=== PATIENT | female | born 1985 | race Caucasian/White ===

== ENCOUNTER 2023-07-30 09:45 | Outpatient (OUT) | payer OTHER, SELFPAY ==
[2023-07-30 10:59] LABS: Alanine Aminotransferase 26 U/L (14-59); Albumin Globulin Ratio 1.5; Albumin Level 4.1 g/dL (3.4-5.0); Alkaline Phosphatase 67 U/L (46-116); Anion Gap 12.5; Aspartate Amino Transferase 14 U/L (15-37); BUN Creatinine Ratio 12.1; Bilirubin Total 0.9 mg/dL (0.2-1.0); Calcium 9.1 mg/dL (8.5-10.1); Carbon Dioxide 27.8 mmol/L (21.0-32.0); Chloride 103 mmol/L (98-107); Chol HDL Ratio 2.5; Cholesterol 171 mg/dL (<=200); Estimated GFR (African America >60 (>=60); Estimated GFR (Non-African Ame >60 (>=60); Globulin 2.8 g/dL; Glucose 86 mg/dL (74-106); HDL Cholesterol 68 mg/dL (40-60); Potassium 4.3 mmol/L (3.5-5.1); Sodium 139 mmol/L (136-145); Total Protein 6.9 g/dL (6.4-8.2); Triglycerides 39 mg/dL (<=150); VLDL CHOLESTEROL 7.8 mg/dL
== END 2023-07-30 09:46 | disposition home or self-care (01) ==
PROVIDERS: PCP Family Medicine
DX: Z00.00 Encounter for general adult medical examination without abnormal findings (principal); Z13.220 Encounter for screening for lipoid disorders; Z13.6 Encounter for screening for cardiovascular disorders
CPT/HCPCS: 36415; 80053; 80061

== ENCOUNTER 2023-09-05 08:01 | Outpatient (OUT) | payer OTHER, SELFPAY | END 2023-09-05 08:02 | disposition home or self-care (01) | LOC: PST 08:01 | PROVIDERS: PCP Family Medicine; Visit Provider Obstetrics & Gynecology | DX: Z01.818 Encounter for other preprocedural examination (principal); Z30.2 Encounter for sterilization ==

== ENCOUNTER 2023-09-16 07:49 | Day surgery (SDC) | payer OTHER, SELFPAY ==
[2023-09-05 08:28] VITALS: BP 101/68; PULSE 71; RESP 14; TEMP 36.2; O2SAT 99; BMI 22.8
[2023-09-16] VITALS (12 sets, daily range): BP systolic 95–119; BP diastolic 51–91; PULSE 62–90; RESP 11–21; TEMP 36.3–36.6; O2SAT 93–100
[2023-09-16 08:02] LABS: Basophils Percent Auto 0.4 % (0.2-2.0); Eosinophils Absolute Auto 0.1 10^3/uL (0.0-0.7); Eosinophils Percent Auto 1.3 % (0.9-7.0); Hematocrit 40.2 % (36.0-48.0); Hemoglobin 13.4 g/dL (12.0-16.0); Immature Granulocytes Abs Auto 0.01 10^3/uL (0.00-0.03); Immature Granulocytes Pct Auto 0.2 % (0.0-0.5); Lymphocytes Absolute Auto 1.8 10^3/uL (1.2-3.8); Lymphocytes Percent Auto 36.5 % (20.5-60.0); Mean Corpuscular HGB Conc 33.3 g/dL (29.9-35.2); Mean Corpuscular Hemoglobin 30.7 pg (26.7-34.0); Mean Corpuscular Volume 92.2 fL (81.0-99.0); Mean Platelet Volume 9.7 fL (9.5-13.5); Monocytes Absolute Auto 0.4 10^3/uL (0.3-0.8); Monocytes Percent Auto 7.3 % (1.7-12.0); Neutrophils Absolute Auto 2.6 10^3/uL (1.4-6.5); Neutrophils Percent Auto 54.3 % (43.0-75.0); Platelet Count 171 10^3/uL (150-450); Red Blood Count 4.36 10^6/uL (4.20-5.40); Red Cell Distribution Width 11.1 % (11.0-15.0); White Blood Count 4.8 10^3/uL (4.0-11.0)
[2023-09-16 08:20] LABS: HCG Quantitative <1 mIU/mL
[2023-09-16] MEDS: LACTATED RINGER'S SOLUTION 1,000 ML 50 ML IV ×2 (08:20→10:38)
--- NOTE | 2023-09-16 10:15 | P.ON_ITS ---
Brief Operative Note Date of procedure: 09/16/23 Pre-op diagnosis: desires sterilization, multiparity Post-op diagnosis: same as pre-op Procedure: Brief Operative Note Date of procedure: Pre-op diagnosis: Post-op diagnosis: Procedure: NAME OF PROCEDURE: robotic assisted bilateral laparoscopic salpingectomy with lysis of adhesions PROCEDURE: The patient was taken back to the Operating Room where she was given general anesthesia without difficulty. She was then prepped and draped in the normal sterile fashion after being placed in a dorsal lithotomy position. A wet sponge stick was placed into the patient's vagina. Attention was then turned to the patient's abdomen, where a scalpel was used to make a small infraumbilical incision. The S retractors were then used to dissect the underlying layers until the fascia could be seen. The fascia was then grasped with Rell clamps and tented up. A knife was then used to make a small incision to the fascia. The muscle was identified, at that time two sutures of #0 Vicryl on a GI needle was then used and placed through the fascia. the peritoneum was then identified and entered bluntly. The 10-4 Hselly was then placed into the patient's abdomen. Th is was confirmed with direct visualization of the bowel, using the laparoscope. The patient's abdomen was then insufflated using approximately 4 liters of CO2 gas. Survey of the patient's abdomen demonstrated ovaries were normal in appearance as well as both tubes and uterus. A second and third rt and lt lateral robotic ports which were 8 mm in size, was then placed after the skin incision was made under direct visualization . the robotic arms were engaged. The patient's tube on the patient's right side was identified and tented up using a grasper, the ligasure apparatus was then used to come across the mesosalpingx from the fimbriated end to the insertion site at the uterus, the tube was then amputated and removed in its entirety. This was done on the contralateral side. The tubes were the removed from the patients abdomen. Excellent hemostasis was noted. The lateral ports were then moved under direct visualization with excellent hemostasis. All instruments were removed from the p atient's abdomen. The fascia was closed using the #0 Vicryl on GI needle. The skin was closed using 4-0 Vicryl subcuticularly. All instruments were removed from the patient's vagina as well. The patient was taken out of the dorsal lithotomy position and placed in the supine position and taken to recovery in stable condition. Sponge, lap and needle counts were correct x2. please note lysis of bowel adhesions from the pelvic side wall was performed using the ligasure Anesthesia: JOON Surgeon: Darryl Dia Food Service Substitute: Renetta Kumar Estimated blood loss (mL): 5 Pathology: other (bilateral tubes) Condition: stable Disposition: PACU
[2023-09-16] MEDS: HYDROMORPHONE HCL 0.5 MG/0.5 ML SYRINGE IV (10:46)
[2023-09-16] MEDS: HYDROCODONE/ACET 5-325 MG TABLET 1 TAB PO (10:59)
--- NOTE | 2023-09-16 11:03 | PC.NURSE ---
PATIENT WANTED PAIN PILL AT THIS TIME. MEDICATION GIVEN ORDERED
--- NOTE | 2023-09-16 11:11 | PC.NURSE ---
PATIENT STATES HER PAIN IS BETTER AND IS TOLERABLE
--- NOTE | 2023-09-16 12:28 | PC.NURSE ---
Up to bathroom and voids cleear yellow without difficulty; no drainage on peripad
== END 2023-09-16 12:15 | disposition home or self-care (01) ==
PROVIDERS: PCP Family Medicine; Visit Provider Obstetrics & Gynecology
PROC: (CPT 840; principal; 2023-09-16 08:55)
DX: Z30.2 Encounter for sterilization (principal); Z86.16 Personal history of COVID-19
CPT/HCPCS: 58661; 36415; 84702; 85025; 88302; J1170; J2704

== ENCOUNTER 2023-10-07 08:18 | Outpatient (OUT) | payer OTHER, SELFPAY ==
--- OUTSIDE RECORDS SUMMARY | 2023-10-07 08:20 | XMS_ITS | CCD ---
Author Name Unknown Address [address] [place] [address] [address] [place] [address] Organization [facility] Care Team Providers Care Bank Representative Name Role Phone ORESTES, DR ZACH Woodward Admitting Unavailable WONDERLY, DR ZACH Woodward Attending Unavailable EFFIE TRIMBLE Consulting Unavailable EFFIE TRIMBLE Attending Unavailable WONDERDIANNE, DR ZACH Woodward Primary Care Unavailable EFFIE TRIMBLE Admitting Unavailable NHAN MEIER Attending Unavailable RIK MOTA Attending Unavailable Problems Problem Classification Problem Date Documented Da te Episodic/Chronic Other endocrine disorders (4 sources) Polycystic ovarian syndrome; Translations: [POLYCYSTIC OVARIAN SYNDROME] Onset: 11-22-2020 Chronic Results Test Name Value Interpretation Reference Range Facil ity SURGICAL PATH REPORTon 09-21 SURGICAL PATH REPORT [facility] Department of Pathology [address] [place] [id number] Name: EDY BLEDSOE : 1985 [employer] [id number] Number: Gender [facility] : n: Admit 38 years Attending NHAN MEIER Age: Provider: Ordering NHAN MEIER Provider: Consulti Surgical Pathology Report ng: ACCESSION: COLLECTED DATE/TIME: RECEIVED DATE/TIME: PATHOLOGIST: [id number] 09/16/2023 10:20 EST 09/19/2023 13:49 SEFERINO BRAXTON MD, ZACKARY GOSS Final Diagnosis Report for [facility] [place] BILATERAL FALLOPIAN TUBES, BILATERAL SALPINGECTOMY: - COMPLETE CROSS SECTION OF FALLOPIAN TUBES WITHOUT SIGNIFICANT HISTOPATHOLOGIC CHANGE. ZACKARY BRAXTON PATHOLOGIST (Electronic Signature) Date Verified 09/21/2023 [facility] Clinical Data PRE-OP DIAGNOSIS: Not specified POST-OP DIAGNOSIS: Request for sterilization, adhesions, path pending PROCEDURES: DaVinci assisted robotic bilateral tubal salpingectomy, lysis of adhesions SPECIMEN: Bilateral fallopian tubes / Outpatient Gross Description Labeled bilateral fallopian tubes. Received in formalin are bilateral fallopian tubes. These consist of cylindrical segments which are pink purple to red. Each include one end which is fimbriated. The first fallopian tube measures 8.5 cm in length and has a cross diameter ranging from 0.4 to 0.6 cm proximal to distal. The remaining fallopian tube measures 7.2 cm in length and has a cross diameter ranging from 0.4 to 0.6 cm proximal to distal. The segments are serially sectioned in a transverse manner. Infirmary Attendant sections are submitted under the following designations: #1 - first described fallopian tube #2 - second described fallopian tube MP/slteodora ____ Print 09/21/2023 08:50 EST Number: Date/Time: [facility] Department of Pathology [address] [place], [place] [id number] Name: EDY BLEDSOE : 1985 [facility] [id number] Number: Gender Female [facility] : n: Admit 38 years Attending NHAN MEIER Age: Provider: Ordering NHAN MEIER Provider: Consulti Surgical Pathology Report ng: ACCESSION: COLLECTED DATE/TIME: RECEIVED DATE/TIME: PATHOLOGIST: [id number] 09/16/2023 10:20 EST 09/19/2023 13:49 EST FOX ALLEN, ZACKARY GOSS Gross Description 09/19/2023 Microscopic Diagnosis The final diagnosis is based on a microscopic exam of escrow representative sections. Codes CPT CODE: 41133 ____ Print 09/21/2023 08:50 EST Number: Date/Time: Normal [facility] Comment on above: Performed By: #### [id number] #### [facility] [address] [id number] Deputy Court Clerk: Branden Zhao MD TESTOSTERONE, FREE,DIRECT, T OTALon 11-26-2020 Free Testosterone(Direct ) 0.6 pg/mL Normal 0.0-4.2 [facility] Comment on above: Result Comment: Perf ormed at: BN Performed By: #### T ESTFRD #### [facility] [address] [place] [address] Awa Elva Testosterone [Mass/Vol] 14 ng/dL Normal 8-48 [facility] Comment on above: Result Comment: Perf ormed at: CB Performed By: #### T ESTFRD #### [facility] [address] [place], [place] [id number] Awa Elva ZINC SERUM OR PLASMAon 11-26 Zinc, Plasma or Serum 106 ug/dL Normal 44-115 [facility] Comment on above: Result Comment: Dete ction Limit = 5 . Please note reference interval change Performed By: #### L BCLH #### [facility] [address] [place], [place] [address] Awa Elva VIT D 1 25 DIHYDROXYon 11-25 Calcitriol(1,25 di-OH Vit D) 47.3 pg/mL Normal 19.9-79.3 [facility] Comment on above: Performed By: #### V [id number] #### [facility] [address] [place], [place] [address] Awa Stevenson DHEA-SULFATEon 11-23-2020 DHEA-Sulfate 69.0 ug/dL Normal 57.3-279.2 [facility] Comment on above: Performed By: #### L TIM #### [facility] [address] [place], [place] [address] Awa Stevenson FSHon 11-23-2020 FSH 7.5 mIU/mL Normal [facility] Comment on above: Result Comment: Adul t Female: Follicular phase 3.5 - 12.5 Ovulation phase 4.7 - 21.5 Luteal phase 1.7 - 7.7 Postmenopausal 25.8 - 134.8 Performed By: #### L TIM #### [facility] [address] [place], [place] [address] Awa Stevenson LUTEINIZING HORMONE (LH)on 0 11-23-2020 LH 9.8 mIU/mL Normal [facility] Comment on above: Result Comment: Adul t Female: Follicular phase 2.4 - 12.6 Ovulation phase 14.0 - 95.6 Luteal phase 1.0 - 11.4 Postmenopausal 7.7 - 58.5 Performed By: #### L TIM #### [facility] [address] [place] [address] Awa Stevenson PROLACTINon 11-23-2020 Prolactin 9.7 ng/mL Normal 4.8-23.3 [facility] Comment on above: Performed By: #### P ROLANNITA #### [facility] [address] [place], [place] [address] Awa Stevenson CBC AUTO DIFFon 11-22-2020 BASO # 0.0 103/ul Normal 0.0-0.1 [facility] Comment on above: Performed By: #### C BC #### [facility] [address] [place], [place] [address] Awa Stevenson Basophils/100 WBC (Bld) 0.2 % Normal 0.2-2.0 [facility] Comment on above: Performed By: #### C BC #### [facility] [address] [place], [place] [address] Awaroselyn Stevenson EO # 0.0 103/ul Normal 0.0-0.7 [facility] Comment on above: Performed By: #### C BC #### [facility] [address] [place], [place] [address] Awa Elva Eosinophils/100 WBC (Bld) 1.0 % Normal 0.9-7.0 [facility] Comment on above: Performed By: #### C BC #### [facility] [address] [place] [address] Awa Elva Erythrocyte distribution width (RBC) [Ratio] 11.2 % Normal 11.0-15.0 [facility] Comment on above: Performed By: #### C BC #### [facility] [address] [place] [address] Awa Elva Hematocrit (Bld) [Volume fraction] 42.3 % Normal 36.0-48.0 [facility] Comment on above: Performed By: #### C BC #### [facility] [address] [place], [place] [address] Awa Elva Hemoglobin (Bld) [Mass/Vol] 14.4 g/dL Normal 12.0-16.0 [facility] Comment on above: Performed By: #### C BC #### [facility] [address] [place] [address] Awa Elva IG # 0.01 10e3/ul Normal 0.00-0.03 [facility] Comment on above: Performed By: #### C BC #### [facility] [address] [place] [address] Awa Elva IG % 0.2 % Normal 0.0-0.5 [facility] Comment on above: Performed By: #### C BC #### [facility] [address] [place] [address] Awa Elva LYMPH # 1.6 103/ul Normal 1.2-3.8 [facility] Comment on above: Performed By: #### C BC #### [facility] [address] [place] [address] Awa Elva Lymphocytes/100 WBC (Bld) 39.3 % Normal 20.5-60.0 [facility] Comment on above: Performed By: #### C BC #### [facility] [address] [place], [place] [address] Awa Elva MANUAL DIFF REQ NO Normal [facility] Comment on above: Performed By: #### C BC #### [facility] [address] [place], [place] [address] Awaroselyn Stevenson MCH (RBC) [Entitic mass] 30.6 pg Normal 26.7-34.0 [facility] Comment on above: Performed By: #### C BC #### [facility] [address] [place], [place] [address] Awaroselyn Stevenson MCHC (RBC) [Mass/Vol] 34.0 g/dL Normal 29.9-35.2 [facility] Comment on above: Performed By: #### C BC #### [facility] [address] [place] [address] Awa Elva MCV (RBC) [Entitic vol] 90.0 fL Normal 81.0-99.0 [facility] Comment on above: Performed By: #### C BC #### [facility] [address] [place] [address] Awa Leva MONO # 0.3 103/ul Normal 0.3-0.8 [facility] Comment on above: Performed By: #### C BC #### [facility] [address] [place], [place] [address] Awa Elva Monocytes/100 WBC (Bld) 6.7 % Normal 1.7-12.0 [facility] Comment on above: Performed By: #### C BC #### [facility] [address] [place] [address] Awa Elva NEUT # 2.1 103/ul Normal 1.4-6.5 [facility] Comment on above: Performed By: #### C BC #### [facility] [address] [place], [place] [address] Awa Elva Neutrophils/100 WBC (Bld) 52.6 % Normal 43.0-75.0 [facility] Comment on above: Performed By: #### C BC #### [facility] [address] [place], [place] [address] Awa Elva Platelet mean volume (Bld) [Entitic vol] 9.3 fL Critically low 9.5-13.5 [facility] Comment on above: Performed By: #### C BC #### [facility] [address] [place] [address] Awa Stevenson PLT 207 103/ul Normal 150-450 [facility] Comment on above: Performed By: #### C BC #### [facility] [address] [place] [address] Awa Stevenson RBC 4.70 106/ul Normal 4.20-5.40 [facility] Comment on above: Performed By: #### C BC #### [facility] [address] [place] [address] Awa Stevenson WBC 4.0 103/ul Normal 4.0-11.0 [facility] Comment on above: Performed By: #### C BC #### [facility] [address] [place] [address] Awa Stevenson FREE T3on 11-22-2020 FREE T3 2.77 pg/mlL Normal 2.77-5.27 [facility] Comment on above: Performed By: #### F T3, TSH #### [facility] [address] [place] [address] Awa Stevenson FREE T4on 11-22-2020 Free T4 [Mass/Vol] 1.13 ng/dL Normal 0.78-2.19 [facility] Comment on above: Performed By: #### V ITB12, IRON, FT4 #### [facility] [address] [place], [place] [address] Awaroselyn Fonsecaen IRONon 11-22-2020 Iron [Mass/Vol] 101.0 ug/dL Normal 37.0-170.0 [facility] Comment on above: Performed By: #### V ITB12, IRON, FT4 #### [facility] [address] [place], [place] [address] Awaroselyn Fonsecaen TSHon 11-22-2020 TSH 1.202 uIU/mL Normal 0.470-4.[address] [facility] Comment on above: Performed By: #### F T3, TSH #### [facility] [address] [place], [place] [address] Awa Stevenson TSH RANGE SEE BELOW Normal [facility] Comment on above: Result Comment: <0.3 4 UIU/ml HYPERTHYROID 0.34-5.60 UIU/ml EUTHYROID >5.60 UIU/ml HYPOTHYROID Performed By: #### F T3, TSH #### [facility] [address] [place], [place] [address] Awa Stevenson VITAMIN B12on 11-22-2020 Cobalamin (Vitamin B12) [Mass/Vol] 324.0 pg/mL Normal 239.0-931.0 [facility] Comment on above: Performed By: #### V ITB12, IRON, FT4 #### [facility] [address] [place], [place] [address] Awa Stevenson Encounters Encounter Date Encounter Type Care Provider Facility Start: 10-03-2023 End: 10-03-2023 ambulatory RIK MOTA Not Available Start: 09-16-2023 End: 09-17-2023 ambulatory NHAN MEIER Facility:[facility] Start: 01-14-[address] ZACH Anderson lity:H1 Start: 11-22-2020 End: 11-23-2020 ambulatory EFFIE TRIMBLE Facility: Payers Date Payer Category Payer Unknown [id number] 2.16.84 [id number] 1985 Unknown [id number] 2.16.84 [id number] 1985 Unknown [id number] 2.16.8 [id number] 1985 Unknown [id number] 1959 Self-pay 1959 Unknown [id number] Summary Purpose Family History No Family History Records FoundNo Family History Records FoundNo Family History Records Found Advance Directives No Advanced Directives Records FoundNo Advanced Directives Records FoundNo Advanced Directives Records Found Additional Source Comments INFORMATION SOURCE (unrecogn ized section and content) DATE CREATED AUTHOR 02/11/2021 [facility] DATE CREATED AUTHOR AUTHOR'S ORGANIZ ATION 09/23/[address] [facility] DATE CREATED AUTHOR AUTHOR'S ORGANIZ ATION 10/03/2023 [facility] FOR RECORDS PERTAINING TO PATIENTS WHO ARE OR HAVE BEEN ENROLLED IN A CHEMICAL DEPENDENCY/SUBSTANCEABUSE PROGRAM, SOME INFORMATION MAY BE OMITTED. This clinical summary was aggregated from multiple sources. Caution should be exercised in using it in the provision of clinical care. This summary normalizes information from multiple sources, and as a consequence, information in this document may materially change the coding, format and clinical context of patient data. In addition, data may be omitted in some cases. CLINICAL DECISIONS SHOULD BE BASED ON THE PRIMARY CLINICAL RECORDS. [facility] [employer] provides no warranty or guarantee of the accuracy or completeness of information in this document.
[2023-10-07 08:44] LABS: Basophils Percent Auto 0.4 % (0.2-2.0); Eosinophils Absolute Auto 0.2 10^3/uL (0.0-0.7); Eosinophils Percent Auto 3.1 % (0.9-7.0); Hematocrit 41.4 % (36.0-48.0); Hemoglobin 13.9 g/dL (12.0-16.0); Immature Granulocytes Abs Auto 0.01 10^3/uL (0.00-0.03); Immature Granulocytes Pct Auto 0.2 % (0.0-0.5); Lymphocytes Absolute Auto 1.9 10^3/uL (1.2-3.8); Lymphocytes Percent Auto 37.3 % (20.5-60.0); Mean Corpuscular HGB Conc 33.6 g/dL (29.9-35.2); Mean Corpuscular Hemoglobin 30.7 pg (26.7-34.0); Mean Corpuscular Volume 91.4 fL (81.0-99.0); Monocytes Absolute Auto 0.4 10^3/uL (0.3-0.8); Monocytes Percent Auto 7.1 % (1.7-12.0); Neutrophils Absolute Auto 2.7 10^3/uL (1.4-6.5); Neutrophils Percent Auto 51.9 % (43.0-75.0); Platelet Count 183 10^3/uL (150-450); Red Blood Count 4.53 10^6/uL (4.20-5.40); Red Cell Distribution Width 11.1 % (11.0-15.0); White Blood Count 5.1 10^3/uL (4.0-11.0)
[2023-10-07 09:11] LABS: Free T3 2.68 pg/mL (2.18-3.98); Thyroid Stimulating Hormone 1.892 uIU/mL (0.358-3.740)
[2023-10-07 09:40] LABS: Free T4 1.08 ng/dL (0.76-1.46)
[2023-10-08 08:10] LABS: Estradiol 93.2 pg/mL (.); Progesterone 1.3 ng/mL (.)
[2023-10-20 14:08] LABS: Free Testosterone(Direct) 0.5 pg/mL (0.0-4.2); Testosterone 19 ng/dL (8-60)
== END 2023-10-07 08:19 | disposition home or self-care (01) ==
LOC: LAB 08:18
PROVIDERS: PCP Family Medicine
DX: N95.9 Unspecified menopausal and perimenopausal disorder (principal)
CPT/HCPCS: 36415; 82670; 84144; 84402; 84403; 84439; 84443; 84481; 85025

== ENCOUNTER 2024-03-10 08:27 | Outpatient (OUT) | payer OTHER, SELFPAY ==
--- OUTSIDE RECORDS SUMMARY | 2024-03-10 08:33 | XMS_ITS ---
Patient Summarization (C-CDA 2.1 CCD) Created on: March 10, 2024 Ab RHODES~RAKAN : 1985 Sex: Female Author Organization Sample organization Care Team Providers Care Forming Department Supervisor Name Role Phone ORESTES, DR ZACH Woodward Admitting Unavailable ORESTES, DR ZACH Woodward Attending Unavailable EFFIE TRIMBLE Consulting Unavailable EFFIE TRIMBLE Attending Unavailable ORESTES, DR ZACH Woodward Primary Care Unavailable EFFIE TRIMBLE Admitting Unavailable NHAN MEIER Attending Unavailable RAKAN, ANIVAL Wheeler Attending Unavailable RIK MOTA Attending Unavailable Encounters Encounter Date Encounter Type Care Provider Facility Start: 11-03-2023 End: 11-03-2023 ambulatory ANIVAL BLEDSOE Not Available Start: 10-03-2023 End: 10-03-2023 ambulatory RIK MOTA Not Available Start: 09-16-2023 End: 09-17-2023 ambulatory NHAN MEIER Facility:[facility] Start: 01-14-[address] ZACH CARLISLE Faci lity:[facility] Start: 11-22-2020 End: 11-23-2020 ambulatory EFFIE TRIMBLE Facility:[facility] Payers Date Payer Category Payer Unknown [id number] .[id number] 1985 Unknown [id number] 1985 Unknown [id number] 1985 Unknown [id number] .[id number] 1985 Unknown [id number] 1959 Self-pay 1959 Unknown [id number] Problems Problem Classification Problem Date Documented Da te Episodic/Chronic Other endocrine disorders (4 sources) Polycystic ovarian syndrome; Translations: [POLYCYSTIC OVARIAN SYNDROME] Onset: 11-22-2020 Chronic Results Test Name Value Interpretation Reference Range Facil ity SURGICAL PATH REPORTon 09-21 SURGICAL PATH REPORT [facility] Department of Pathology [address] [place] [address] Name: EDY BLEDSOE : 1985 [facility] [id number] Number: Gender Female [facility] : n: Admit 38 years Attending NHAN MEIER Age: Provider: Ordering NHAN MEIER Provider: Consulti Surgical Pathology Report ng: ACCESSION: COLLECTED DATE/TIME: RECEIVED DATE/TIME: PATHOLOGIST: [id number] 09/16/2023 10:20 EST 09/19/2023 13:49 EST FOX ALLEN, ZACKARY GOSS Final Diagnosis Report for [facility] [place] BILATERAL FALLOPIAN TUBES, BILATERAL SALPINGECTOMY: - [...] are serially sectioned in a transverse manner. District Supervisor sections are submitted under the following designations: #1 - first described fallopian tube #2 - second described fallopian tube MP/slb ____ Print 09/21/2023 08:50 EST Number: Date/Time: [facility] Department of Pathology [address] [place] [id number] Name: EDY BLEDSOE : 1985 [facility] [id number] Number: Gender Female Roland MARLOW ESTEFANIA : n: Admit 38 years Attending NHAN MEIER Age: Provider: Ordering NHAN MEIER Provider: Consulti Surgical Pathology Report ng: ACCESSION: COLLECTED DATE/TIME: RECEIVED DATE/TIME: PATHOLOGIST: [id number] 09/16/2023 10:20 EST 09/19/2023 13:49 EST FOX ALLEN, ZACKARY GOSS Gross Description 09/19/2023 Microscopic Diagnosis The final diagnosis is based on a microscopic exam of healthcare representative sections. Codes CPT CODE: 95990 ____ Print 09/21/2023 08:50 EST Number: Date/Time: Normal [facility] Comment on above: Performed By: #### [id number] #### [facility] [address] [place] [id number] Certified Medical Asst: Branden Zhao MD TESTOSTERONE, FREE,DIRECT, T Dimas 11-26-2020 Free Testosterone(Direct ) 0.6 pg/mL Normal 0.0-4.2 [facility] Comment on above: Result Comment: Perf ormed at: BN Performed By: #### T ESTSTANISLAV #### [facility] [address] [place], [place] [id number] Awa Stevenson Testosterone [Mass/Vol] 14 ng/dL Normal 8-48 [facility] Comment on above: Result Comment: Perf ormed at: CB Performed By: #### T ESTSTANISLAV #### [facility] [address] [place], [place] [id number] Awa Stevenson ZINC SERUM OR PLASMAon 11-26 Zinc, Plasma or Serum 106 ug/dL Normal 44-115 [facility] Comment on above: Result Comment: Dete ction Limit = 5 . Please note reference interval change Performed By: #### L SOLANGE #### [facility] [address] [place] [address] Awa Stevenson VIT D 1 25 DIHYDROXYon 11-25 Calcitriol(1,25 di-OH Vit D) 47.3 pg/mL Normal 19.9-79.3 [facility] Comment on above: Performed By: #### V [id number] #### [facility] [address] [place], [place] [id number] Awa Stevenson DHEA-SULFATEon 11-23-2020 DHEA-Sulfate 69.0 ug/dL Normal 57.3-279.2 [facility] Comment on above: Performed By: #### L SOLANGE #### [facility] [address] [place], [place] [id number] Awa Stevenson FSHon 11-23-2020 FSH 7.5 mIU/mL Normal [facility] Comment on above: Result Comment: Adul t Female: Follicular phase 3.5 - 12.5 Ovulation phase 4.7 - 21.5 Luteal phase 1.7 - 7.7 Postmenopausal 25.8 - 134.8 Performed By: #### L SOLANGE #### [facility] [address] [place], [place] [id number] Awa Stevenson LUTEINIZING HORMONE (LH)on 0 11-23-2020 LH 9.8 mIU/mL Normal [facility] Comment on above: Result Comment: Adul t Female: Follicular phase 2.4 - 12.6 Ovulation phase 14.0 - 95.6 Luteal phase 1.0 - 11.4 Postmenopausal 7.7 - 58.5 Performed By: #### L BCLH #### [facility] [address] [place] [address] Awa Elva PROLACTINon 11-23-2020 Prolactin 9.7 ng/mL Normal 4.8-23.3 [facility] Comment on above: Performed By: #### P ROLAC #### [facility] [address] [place] [address] Awa Elva CBC AUTO DIFFon 11-22-2020 BASO # 0.0 103/ul Normal 0.0-0.1 [facility] Comment on above: Performed By: #### C BC #### [facility] [address] [place] [address] Awa Elva Basophils/100 WBC (Bld) 0.2 % Normal 0.2-2.0 [facility] Comment on above: Performed By: #### C BC #### [facility] [address] [place] [address] Awa Elva EO # 0.0 103/ul Normal 0.0-0.7 [facility] Comment on above: Performed By: #### C BC #### [facility] [address] [place], [place] [id number] Awa Elva Eosinophils/100 WBC (Bld) 1.0 % Normal 0.9-7.0 [facility] Comment on above: Performed By: #### C BC #### [facility] [address] [place], [place] [phone] Awa Elva Erythrocyte distribution width (RBC) [Ratio] 11.2 % Normal 11.0-15.0 [facility] Comment on above: Performed By: #### C BC #### [facility] [address] [place], [place] [phone] Awa Elva Hematocrit (Bld) [Volume fraction] 42.3 % Normal 36.0-48.0 [facility] Comment on above: Performed By: #### C BC #### [facility] [address] [place], [place] [id number] Awa Elva Hemoglobin (Bld) [Mass/Vol] 14.4 g/dL Normal 12.0-16.0 [facility] Comment on above: Performed By: #### C BC #### [facility] [address] [place] [address] Awa Elva IG # 0.01 10e3/ul Normal 0.00-0.03 [facility] Comment on above: Performed By: #### C BC #### [facility] [address] [place] [address] Awa Elva IG % 0.2 % Normal 0.0-0.5 [facility] Comment on above: Performed By: #### C BC #### [facility] [address] [place] [address] Awa Elva LYMPH # 1.6 103/ul Normal 1.2-3.8 [facility] Comment on above: Performed By: #### C BC #### [facility] [address] [place] [address] Awa Elva Lymphocytes/100 WBC (Bld) 39.3 % Normal 20.5-60.0 [facility] Comment on above: Performed By: #### C BC #### [facility] [address] [place], [place] [phone] Awaroselyn Fonsecaen MANUAL DIFF REQ NO Normal [facility] Comment on above: Performed By: #### C BC #### [facility] [address] [place], [place] [phone] Awa Elva MCH (RBC) [Entitic mass] 30.6 pg Normal 26.7-34.0 [facility] Comment on above: Performed By: #### C BC #### [facility] [address] [place], [place] [id number] Awa Elva MCHC (RBC) [Mass/Vol] 34.0 g/dL Normal 29.9-35.2 [facility] Comment on above: Performed By: #### C BC #### [facility] [address] [place], [place] [phone] Awa Elva MCV (RBC) [Entitic vol] 90.0 fL Normal 81.0-99.0 [facility] Comment on above: Performed By: #### C BC #### [facility] [address] [place], [place] [phone] Awa Stevenson MONO # 0.3 103/ul Normal 0.3-0.8 [facility] Comment on above: Performed By: #### C BC #### [facility] [address] [place] [address] Awa Stevenson Monocytes/100 WBC (Bld) 6.7 % Normal 1.7-12.0 [facility] Comment on above: Performed By: #### C BC #### [facility] [address] [place] [address] Awa Stevenson NEUT # 2.1 103/ul Normal 1.4-6.5 [facility] Comment on above: Performed By: #### C BC #### [facility] [address] [place] [address] Awa Stevenson Neutrophils/100 WBC (Bld) 52.6 % Normal 43.0-75.0 [facility] Comment on above: Performed By: #### C BC #### [facility] [address] [place] [address] Awa Stevenson Platelet mean volume (Bld) [Entitic vol] 9.3 fL Critically low 9.5-13.5 [facility] Comment on above: Performed By: #### C BC #### [facility] [address] [place] [address] Awa Fonsecaen PLT 207 103/ul Normal 150-450 [facility] Comment on above: Performed By: #### C BC #### [facility] [address] [place] [address] Awaroselyn Fonsecaen RBC 4.70 106/ul Normal 4.20-5.40 [facility] Comment on above: Performed By: #### C BC #### [facility] [address] [place] [address] Awa Elva WBC 4.0 103/ul Normal 4.0-11.0 [facility] Comment on above: Performed By: #### C BC #### [facility] [address] [place] [address] Awaroselyn Stevenson FREE T3on 11-22-2020 FREE T3 2.77 pg/mlL Normal 2.77-5.27 [facility] Comment on above: Performed By: #### F T3, TSH #### [facility] [address] [place] [address] Awaroselyn Stevenson FREE T4on 11-22-2020 Free T4 [Mass/Vol] 1.13 ng/dL Normal 0.78-2.19 [facility] Comment on above: Performed By: #### V ITB12, IRON, FT4 #### [facility] [address] [place] [address] Awaroselyn Fonsecaen IRONon 11-22-2020 Iron [Mass/Vol] 101.0 ug/dL Normal 37.0-170.0 [facility] Comment on above: Performed By: #### V ITB12, IRON, FT4 #### [facility] [address] [place] [address] Awaroselyn Fonsecaen TSHon 11-22-2020 TSH 1.202 uIU/mL Normal 0.470-4.680 [facility] Comment on above: Performed By: #### F T3, TSH #### [facility] [address] [place] [address] Awa Elva TSH RANGE SEE BELOW Normal [facility] Comment on above: Result Comment: <0.3 4 UIU/ml HYPERTHYROID 0.34-5.60 UIU/ml EUTHYROID >5.60 UIU/ml HYPOTHYROID Performed By: #### F T3, TSH #### [facility] [address] [place] [address] Awa Stevenson VITAMIN B12on 11-22-2020 Cobalamin (Vitamin B12) [Mass/Vol] 324.0 pg/mL Normal 239.0-931.0 [facility] Comment on above: Performed By: #### V ITB12, IRON, FT4 #### [facility] [address] [place] [address] Awaroselyn Fonsecaen Summary Purpose Family History No Family History Records FoundNo Family History Records FoundNo Family History Records Found Advance Directives No Advanced Directives Records FoundNo Advanced Directives Records FoundNo Advanced Directives Records Found Additional Source Comments INFORMATION SOURCE (unrecogn ized section and content) DATE CREATED AUTHOR 02/11/2021 [facility] DATE CREATED AUTHOR AUTHOR'S ORGANIZ ATION 09/23/2023 [facility] DATE CREATED AUTHOR AUTHOR'S ORGANIZ ATION 11/04/2023 [facility] FOR RECORDS PERTAINING TO PATIENTS WHO ARE [...] BE BASED ON THE PRIMARY CLINICAL RECORDS. [facility] [employer] provides no warranty or guarantee of the accuracy or completeness of information in this document.
[2024-03-11 19:07] LABS: Cortisol - AM 17.7 ug/dL (6.2-19.4)
== END 2024-03-10 08:28 | disposition home or self-care (01) ==
LOC: LAB 08:31
PROVIDERS: PCP Family Medicine
DX: N95.9 Unspecified menopausal and perimenopausal disorder (principal)
CPT/HCPCS: 36415; 82533; 82670; 84402; 84403

== ENCOUNTER 2024-07-14 09:00 | Outpatient (OUT) | payer OTHER, SELFPAY ==
--- OUTSIDE RECORDS SUMMARY | 2024-07-14 08:40 | XMS_ITS | CCD ---
Author Organization [facility] Inform ion Partnership [facility] Care Team Providers Care Liquor Tester Name Role Phone ORESTES, DR ZACH Woodward Admitting Unavailable ORESTES, DR ZACH Woodward Attending Unavailable EFFIE TRIMBLE Consulting Unavailable EFFIE TRIMBLE Attending Unavailable ORESTES, DR ZACH Woodward Primary Care Unavailable EFFIE TRIMBLE Admitting Unavailable NHAN MEIER Attending Unavailable ANIVAL BLEDSOE Attending Unavailable PUMP, MEI Attending Unavailable NAKUL, RIK Attending Unavailable Problems Problem Classification Problem Date Documented Da te Episodic/Chronic Other endocrine disorders (4 sources) Polycystic ovarian syndrome; Translations: [POLYCYSTIC OVARIAN SYNDROME] Onset: 11-22-2020 Chronic Results Test Name Value Interpretation Reference Range Facil ity SURGICAL PATH REPORTon 09-21 SURGICAL PATH REPORT [facility] Department of Pathology [address] [place] [id number] [phone] Name: EDY BLEDSOE : 1985 [facility] [id number] Number: Gender Female [facility] : n: Admit 38 years Attending NHAN MEIER Age: Provider: Ordering NHAN MEIER Provider: Consulti Surgical Pathology Report ng: ACCESSION: COLLECTED DATE/TIME: RECEIVED DATE/TIME: PATHOLOGIST: [id number] 09/16/2023 10:20 EST 09/19/2023 13:49 SEFERINO BRAXTON MD, ZACKARY GOSS Final Diagnosis Report for THE [place], [place] BILATERAL FALLOPIAN TUBES, BILATERAL SALPINGECTOMY: - [...] are serially sectioned in a transverse manner. Rivet Sorter sections are submitted under the following designations: #1 - first described fallopian tube #2 - second described fallopian tube BRIGHT/slteodora ____ Print 09/21/2023 08:50 EST Number: Date/Time: [facility] Department of Pathology [address] [place], [place] [id number] Name: EDY BLEDSOE : 1985 [facility] [id number] Number: Gender Female [facility] ESTEFANIA : n: Admit 38 years Attending NHAN MEIER Age: Provider: Ordering NHAN MEIER Provider: Consulti Surgical Pathology Report ng: ACCESSION: COLLECTED DATE/TIME: RECEIVED DATE/TIME: PATHOLOGIST: [id number] 09/16/2023 10:20 EST 09/19/2023 13:49 EST FOX ALLEN, ZACKARY GOSS Gross Description 09/19/2023 Microscopic Diagnosis The final diagnosis is based on a microscopic exam of business office representative sections. Codes CPT CODE: 73203 ____ Print 09/21/2023 08:50 EST Number: Date/Time: Normal [facility] Comment on above: Performed By: #### 9 [id number] #### [facility] [id number] [id number] Fish Processor: Branden Zhao MD TESTOSTERONE, FREE,DIRECT, T OTALon 11-26-2020 Free Testosterone(Direct ) 0.6 pg/mL Normal 0.0-4.2 [facility] Comment on above: Result Comment: Perf ormed at: BN Performed By: #### T ESTFRD #### [facility] [address] [place], [place] [id number] Awaroselyn Stevenson Testosterone [Mass/Vol] 14 ng/dL Normal 8-48 [facility] Comment on above: Result Comment: Perf ormed at: CB Performed By: #### T ESTFRD #### [facility] [address] [place] [address] Awa Stevenson ZINC SERUM OR PLASMAon 11-26 Zinc, Plasma or Serum 106 ug/dL Normal 44-115 [facility] Comment on above: Result Comment: Dete ction Limit = 5 . Please note reference interval change Performed By: #### L BCLH #### [facility] [address] [place] [address] Awa Stevenson VIT D 1 25 DIHYDROXYon 11-25 Calcitriol(1,25 di-OH Vit D) 47.3 pg/mL Normal 19.9-79.3 [facility] Comment on above: Performed By: #### V [id number] #### [facility] [address] [place], [place] [id number] Awa Stevenson DHEA-SULFATEon 11-23-2020 DHEA-Sulfate 69.0 ug/dL Normal 57.3-279.2 [facility] Comment on above: Performed By: #### L ITM #### [facility] [address] [place] [address] Awa Stevenson FSHon 11-23-2020 FSH 7.5 mIU/mL Normal [facility] Comment on above: Result Comment: Adul t Female: Follicular phase 3.5 - 12.5 Ovulation phase 4.7 - 21.5 Luteal phase 1.7 - 7.7 Postmenopausal 25.8 - 134.8 Performed By: #### L TIM #### [facility] [address] [place] [address] Awa Stevenson LUTEINIZING HORMONE (LH)on 0 11-23-2020 LH 9.8 mIU/mL Normal [facility] Comment on above: Result Comment: Adul t Female: Follicular phase 2.4 - 12.6 Ovulation phase 14.0 - 95.6 Luteal phase 1.0 - 11.4 Postmenopausal 7.7 - 58.5 Performed By: #### L TIM #### [facility] [address] [place] [address] Awa Stevenson PROLACTINon 11-23-2020 Prolactin 9.7 ng/mL Normal 4.8-23.3 [facility] Comment on above: Performed By: #### P ROLANNITA #### [facility] [address] [place], [place] [id number] Awa Stevenson CBC AUTO DIFFon 11-22-2020 BASO # 0.0 103/ul Normal 0.0-0.1 [facility] Comment on above: Performed By: #### C BC #### [facility] [address] [place], [place] [id number] Awa Stevenson Basophils/100 WBC (Bld) 0.2 % Normal 0.2-2.0 [facility] Comment on above: Performed By: #### C BC #### [facility] [address] [place] [address] Awa Elva EO # 0.0 103/ul Normal 0.0-0.7 [facility] Comment on above: Performed By: #### C BC #### [facility] [address] [place], [place] [id number] Awa Elva Eosinophils/100 WBC (Bld) 1.0 % Normal 0.9-7.0 [facility] Comment on above: Performed By: #### C BC #### [facility] [address] [place], [place] [id number] Awa Elva Erythrocyte distribution width (RBC) [Ratio] 11.2 % Normal 11.0-15.0 [facility] Comment on above: Performed By: #### C BC #### [facility] [address] [place] [address] Awa Elva Hematocrit (Bld) [Volume fraction] 42.3 % Normal 36.0-48.0 [facility] Comment on above: Performed By: #### C BC #### [facility] [address] [place] [address] Awa Elva Hemoglobin (Bld) [Mass/Vol] 14.4 g/dL Normal 12.0-16.0 [facility] Comment on above: Performed By: #### C BC #### [facility] [address] [place] [address] Awa Elva IG # 0.01 10e3/ul Normal 0.00-0.03 [facility] Comment on above: Performed By: #### C BC #### [facility] [address] [place] [address] Awa Elva IG % 0.2 % Normal 0.0-0.5 [facility] Comment on above: Performed By: #### C BC #### [facility] [address] [place] [address] Awa Elva LYMPH # 1.6 103/ul Normal 1.2-3.8 [facility] Comment on above: Performed By: #### C BC #### [facility] [address] [place] [address] Awa Elva Lymphocytes/100 WBC (Bld) 39.3 % Normal 20.5-60.0 [facility] Comment on above: Performed By: #### C BC #### [facility] [address] [place], [place] [id number] Awa Elva MANUAL DIFF REQ NO Normal [facility] Comment on above: Performed By: #### C BC #### [facility] [address] [place], [place] [id number] Awa Elva MCH (RBC) [Entitic mass] 30.6 pg Normal 26.7-34.0 [facility] Comment on above: Performed By: #### C BC #### [facility] [address] [place] [address] Awaroselyn Stevenson MCHC (RBC) [Mass/Vol] 34.0 g/dL Normal 29.9-35.2 [facility] Comment on above: Performed By: #### C BC #### [facility] [address] [place] [address] Awa Elva MCV (RBC) [Entitic vol] 90.0 fL Normal 81.0-99.0 [facility] Comment on above: Performed By: #### C BC #### [facility] [address] [place] [address] Awa Elva MONO # 0.3 103/ul Normal 0.3-0.8 [facility] Comment on above: Performed By: #### C BC #### [facility] [address] [place], [place] [address] Awa Elva Monocytes/100 WBC (Bld) 6.7 % Normal 1.7-12.0 [facility] Comment on above: Performed By: #### C BC #### [facility] [address] [place] [address] Awa Elva NEUT # 2.1 103/ul Normal 1.4-6.5 [facility] Comment on above: Performed By: #### C BC #### [facility] [address] [place], [place] [address] Awa Elva Neutrophils/100 WBC (Bld) 52.6 % Normal 43.0-75.0 [facility] Comment on above: Performed By: #### C BC #### [facility] [address] [place], [place] [id number] Awa Elva Platelet mean volume (Bld) [Entitic vol] 9.3 fL Critically low 9.5-13.5 [facility] Comment on above: Performed By: #### C BC #### [facility] [address] [place] [address] Awa Stevenson PLT 207 103/ul Normal 150-450 [facility] Comment on above: Performed By: #### C BC #### [facility] [address] [place] [address] Awa Stevenson RBC 4.70 106/ul Normal 4.20-5.40 [facility] Comment on above: Performed By: #### C BC #### [facility] [address] [place] [address] Awa Stevenson WBC 4.0 103/ul Normal 4.0-11.0 [facility] Comment on above: Performed By: #### C BC #### [facility] [address] [place] [address] Awa Stevenson FREE T3on 11-22-2020 FREE T3 2.77 pg/mlL Normal 2.77-5.27 [facility] Comment on above: Performed By: #### F T3, TSH #### [facility] [address] [place] [address] Awa Stevenson FREE T4on 11-22-2020 Free T4 [Mass/Vol] 1.13 ng/dL Normal 0.78-2.[address] [facility] Comment on above: Performed By: #### V ITB12, IRON, FT4 #### [facility] [address] [place] [address] Awaroselyn Fonsecaen IRONon 11-22-2020 Iron [Mass/Vol] 101.0 ug/dL Normal 37.0-170.0 [facility] Comment on above: Performed By: #### V ITB12, IRON, FT4 #### [facility] [address] [place] [address] Awaroselyn Fonsecaen TSHon 11-22-2020 TSH 1.202 uIU/mL Normal 0.470-4.680 [facility] Comment on above: Performed By: #### F T3, TSH #### [facility] [address] [place], [place] [address] Awa Stevenson TSH RANGE SEE BELOW Normal [facility] Comment on above: Result Comment: <0.3 4 UIU/ml HYPERTHYROID 0.34-5.60 UIU/ml EUTHYROID >5.60 UIU/ml HYPOTHYROID Performed By: #### F T3, TSH #### [facility] [address] [place], [place] [address] Awa Stevenson VITAMIN B12on 11-22-2020 Cobalamin (Vitamin B12) [Mass/Vol] 324.0 pg/mL Normal 239.0-931.0 [facility] Comment on above: Performed By: #### V ITB12, IRON, FT4 #### [facility] [address] [place], [place] [address] Awa Stevenson Encounters Encounter Date Encounter Type Care Provider Facility Start: 06-04-2024 End: 06-04-2024 ambulatory MEI PUMP Not Available Start: 11-03-2023 End: 11-03-2023 ambulatory ANIVAL BLEDSOE Not Available Start: 10-03-2023 End: 10-03-2023 ambulatory RIK MOTA Not Available Start: 09-16-2023 End: 09-17-2023 ambulatory NHAN MEIER Facility:[facility] Start: 01-14-[address] ZACH CARLISLE Facchico lity:H1 Start: 11-22-2020 End: 11-23-2020 ambulatory EFFIE TRIMBLE Facility: Payers Date Payer Category Payer Unknown [id number] 2.16.84 [id number] 1985 Unknown [id number] 2.16.84 [id number] 1985 Unknown [id number] 2.16.8 [id number] 1985 Unknown [id number] 2.16.84 [id number] 1985 Unknown [id number] 2.16.84 [id number] 1985 Unknown [id number] 1959 Self-pay 1959 Unknown [id number] Summary Purpose Family History No Family History Records FoundNo Family History Records FoundNo Family History Records Found Advance Directives No Advanced Directives Records FoundNo Advanced Directives Records FoundNo Advanced Directives Records Found Additional Source Comments INFORMATION SOURCE (unrecogn ized section and content) DATE CREATED AUTHOR 02/11/2021 [facility] DATE CREATED AUTHOR AUTHOR'S ORGANIZ ATION 09/23/2023 [facility] DATE CREATED AUTHOR AUTHOR'S ORGANIZ ATION 06/05/2024 [facility] EPIC FOR RECORDS PERTAINING TO PATIENTS WHO ARE [...] BE BASED ON THE PRIMARY CLINICAL RECORDS. [facility] [employer] provides no warranty or guarantee of the accuracy or completeness of information in this document.
--- OUTSIDE RECORDS SUMMARY | 2024-07-14 09:03 | XMS_ITS | CCD ---
Author Organization [facility] Inform ion Partnership [facility] Care Team Providers Care Substation Design Draftsperson Name Role Phone ORESTES, DR ZACH Woodward [...] SURGICAL PATH REPORTon 09-21 SURGICAL PATH REPORT [facility] Department of Pathology [address] [place] [id number] Name: EDY BELDSOE : 1985 [facility] [id number] Number: Gender Female [facility] : n: Admit 38 years Attending NHAN MEIER Age: Provider: Ordering NHAN MEIER Provider: Consulti Surgical Pathology Report ng: ACCESSION: COLLECTED DATE/TIME: RECEIVED DATE/TIME: PATHOLOGIST: [id number] 09/16/2023 10:20 EST 09/19/2023 13:49 SEFERINO BRAXTON MD, ZACKARY GOSS Final Diagnosis Report for [facility] [place], [place] BILATERAL FALLOPIAN TUBES, BILATERAL SALPINGECTOMY: - [...] are serially sectioned in a transverse manner. Cold Roller sections are submitted under the following designations: #1 - first described fallopian tube #2 - second described fallopian tube BRIGHT/slteodora ____ Print 09/21/2023 08:50 EST Number: Date/Time: [facility] Department of Pathology [address] [place], [place] [id number] Name: EDY BLEDSOE : 1985 [facility] [id number] Number: Gender Female [facility] ESTEFANIA : n: Admit 38 years Attending NHAN MEIER Age: Provider: Ordering NHAN MEIER Provider: Consulti Surgical Pathology Report ng: ACCESSION: COLLECTED DATE/TIME: RECEIVED DATE/TIME: PATHOLOGIST: [id number] 09/16/2023 10:20 EST 09/19/2023 13:49 EST FOX ALLEN, ZACKARY GOSS Gross Description 09/19/2023 Microscopic Diagnosis The final diagnosis is based on a microscopic exam of technical sales representative sections. Codes CPT CODE: 78575 ____ Print 09/21/2023 08:50 EST Number: Date/Time: Normal [facility] Comment on above: Performed By: #### 9 [id number] #### [facility] Services [address] [id number] [employer]: Branden Zhao MD TESTOSTERONE, FREE,DIRECT, T OTALon 11-26-2020 Free Testosterone(Direct ) 0.6 pg/mL Normal 0.0-4.2 [facility] Comment on above: Result Comment: Perf ormed at: BN Performed By: #### T ESTFRD #### [facility] [address] [place], [place] [id number] Aawroselyn Stevenson Testosterone [Mass/Vol] 14 ng/dL Normal 8-48 [facility] Comment on above: Result Comment: Perf ormed at: CB Performed By: #### T ESTFRD #### [facility] [address] [place] [id number] Awa Stevenson ZINC SERUM OR PLASMAon 11-26 Zinc, Plasma or Serum 106 ug/dL Normal 44-115 [facility] Comment on above: Result Comment: Dete ction Limit = 5 . Please note reference interval change Performed By: #### L BCLH #### [facility] [address] [place] [id number] Awa Stevenson VIT D 1 25 DIHYDROXYon 11-25 Calcitriol(1,25 di-OH Vit D) 47.3 pg/mL Normal 19.9-79.3 [facility] Comment on above: Performed By: #### V [id number] #### [facility] [address] [place], [place] [id number] Awa Stevenson DHEA-SULFATEon 11-23-2020 DHEA-Sulfate 69.0 ug/dL Normal 57.3-279.2 [facility] Comment on above: Performed By: #### L TIM #### [facility] [address] [place] [address] Awa Stevenson FSHon 11-23-2020 FSH 7.5 mIU/mL Normal [facility] Comment on above: Result Comment: Adul t Female: Follicular phase 3.5 - 12.5 Ovulation phase 4.7 - 21.5 Luteal phase 1.7 - 7.7 Postmenopausal 25.8 - 134.8 Performed By: #### L TIM #### [facility] [address] [place] [address] Awa Stevenson LUTEINIZING HORMONE (LH)on 0 11-23-2020 LH 9.8 mIU/mL Normal [facility] Comment on above: Result Comment: Adul t Female: Follicular phase 2.4 - 12.6 Ovulation phase 14.0 - 95.6 Luteal phase 1.0 - 11.4 Postmenopausal 7.7 - 58.5 Performed By: #### L TIM #### [facility] [address] [place] [address] Awa Stevenson PROLACTINon 11-23-2020 Prolactin 9.7 ng/mL Normal 4.8-23.3 [facility] Comment on above: Performed By: #### P ROLANNITA #### [facility] [address] [place], [place] [id number] Awa Stevenson CBC AUTO DIFFon 11-22-2020 BASO # 0.0 103/ul Normal 0.0-0.1 [facility] Comment on above: Performed By: #### C BC #### [facility] [address] [place], [place] [id number] Awa Stevenson Basophils/100 WBC (Bld) 0.2 % Normal 0.2-2.0 [facility] Comment on above: Performed By: #### C BC #### [facility] [address] [place] [address] Awa Elva EO # 0.0 103/ul Normal 0.0-0.7 [facility] Comment on above: Performed By: #### C BC #### [facility] [address] [place], [place] [id number] Awa Elva Eosinophils/100 WBC (Bld) 1.0 % Normal 0.9-7.0 [facility] Comment on above: Performed By: #### C BC #### [facility] [address] [place], [place] [id number] Awa Elva Erythrocyte distribution width (RBC) [Ratio] 11.2 % Normal 11.0-15.0 [facility] Comment on above: Performed By: #### C BC #### [facility] [address] [place] [address] Awa Elva Hematocrit (Bld) [Volume fraction] 42.3 % Normal 36.0-48.0 [facility] Comment on above: Performed By: #### C BC #### [facility] [address] [place] [address] Awa Elva Hemoglobin (Bld) [Mass/Vol] 14.4 g/dL Normal 12.0-16.0 [facility] Comment on above: Performed By: #### C BC #### [facility] [address] [place] [address] Awa Elva IG # 0.01 10e3/ul Normal 0.00-0.03 [facility] Comment on above: Performed By: #### C BC #### [facility] [address] [place] [address] Awa Elva IG % 0.2 % Normal 0.0-0.5 [facility] Comment on above: Performed By: #### C BC #### [facility] [address] [place] [address] Awa Elva LYMPH # 1.6 103/ul Normal 1.2-3.8 [facility] Comment on above: Performed By: #### C BC #### [facility] [address] [place] [address] Awa Elva Lymphocytes/100 WBC (Bld) 39.3 % Normal 20.5-60.0 [facility] Comment on above: Performed By: #### C BC #### [facility] [address] [place], [place] [id number] Waa Elva MANUAL DIFF REQ NO Normal [facility] Comment on above: Performed By: #### C BC #### [facility] [address] [place], [place] [address] Awa Elva MCH (RBC) [Entitic mass] 30.6 pg Normal 26.7-34.0 [facility] Comment on above: Performed By: #### C BC #### [facility] [address] [place] [address] Awaroselyn Stevenson MCHC (RBC) [Mass/Vol] 34.0 g/dL Normal 29.9-35.2 [facility] Comment on above: Performed By: #### C BC #### [facility] [address] [place] [address] Awa Elva MCV (RBC) [Entitic vol] 90.0 fL Normal 81.0-99.0 [facility] Comment on above: Performed By: #### C BC #### [facility] [address] [place] [address] Awa Elva MONO # 0.3 103/ul Normal 0.3-0.8 [facility] Comment on above: Performed By: #### C BC #### [facility] [address] [place], [place] [address] Awa Elva Monocytes/100 WBC (Bld) 6.7 % Normal 1.7-12.0 [facility] Comment on above: Performed By: #### C BC #### [facility] [address] [place] [address] Awa Elva NEUT # 2.1 103/ul Normal 1.4-6.5 [facility] Comment on above: Performed By: #### C BC #### [facility] [address] [place], [place] [address] Awa Elva Neutrophils/100 WBC (Bld) 52.6 % Normal 43.0-75.0 [facility] Comment on above: Performed By: #### C BC #### [facility] [address] [place], [place] [address] Aaw Elva Platelet mean volume (Bld) [Entitic vol] 9.3 fL Critically low 9.5-13.5 [facility] Comment on above: Performed By: #### C BC #### [facility] [address] [place] [address] Awa Stevenson PLT 207 103/ul Normal 150-450 [facility] Comment on above: Performed By: #### C BC #### [facility] [address] [place] [address] Awa Stevenson RBC 4.70 106/ul Normal 4.20-5.40 [facility] Comment on above: Performed By: #### C BC #### [facility] [address] [place] [address] Awa Stevenson WBC 4.0 103/ul Normal 4.0-11.0 [facility] Comment on above: Performed By: #### C BC #### [facility] [address] [place] [address] Awa Stevenson FREE T3on 11-22-2020 FREE T3 2.77 pg/mlL Normal 2.77-5.27 [facility] Comment on above: Performed By: #### F T3, TSH #### [facility] [address] [place] [address] Awa Stevenson FREE T4on 11-22-2020 Free T4 [Mass/Vol] 1.13 ng/dL Normal 0.78-2.19 [facility] Comment on above: Performed By: #### V ITB12, IRON, FT4 #### [facility] [address] [place] [address] Awaroselyn Fonsecaen IRONon 11-22-2020 Iron [Mass/Vol] 101.0 ug/dL Normal 37.0-170.0 [facility] Comment on above: Performed By: #### V ITB12, IRON, FT4 #### [facility] [address] [place] [address] Awaroselyn Fonsecaen TSHon 11-22-2020 TSH 1.202 uIU/mL Normal 0.470-4.680 [facility] Comment on above: Performed By: #### F T3, TSH #### [facility] [address] [place], [place] [address] Awa Stevenson TSH RANGE SEE BELOW Normal [facility] Comment on above: Result Comment: <0.3 4 UIU/ml HYPERTHYROID 0.34-5.60 UIU/ml EUTHYROID >5.60 UIU/ml HYPOTHYROID Performed By: #### F T3, TSH #### [facility] [address] [place], [place] [address] Awa Stevenson VITAMIN B12on 11-22-2020 Cobalamin (Vitamin B12) [Mass/Vol] 324.0 pg/mL Normal 239.0-931.0 [facility] Comment on above: Performed By: #### V ITB12, IRON, FT4 #### [facility] [address] [place], [place] [address] Awa Stevenson Encounters Encounter Date Encounter Type Care Provider Facility Start: 06-04-2024 End: 06-04-2024 ambulatory MEI PUMP Not Available Start: 11-03-2023 End: 11-03-2023 ambulatory ANIVAL BLEDSOE Not Available Start: 10-03-2023 End: 10-03-2023 ambulatory RIK MOTA Not Available Start: 09-16-2023 End: 09-17-2023 ambulatory NHAN MEIER Facility:[facility] Start: 01-14-[address] ZACH CARLISLE Facchico lity:H1 Start: 11-22-2020 End: 11-23-2020 ambulatory EFFIE TRIMBLE Facility: Payers Date Payer Category Payer Unknown [id number] 2.16.84 [id number] 1985 Unknown [id number] 2.16.84 [id number] 1985 Unknown [id number] 2.16.8 [id number] 1985 Unknown [id number] 2.16.84 [id number] 1985 Unknown [id number] 2.16.84 [id number] 1985 Unknown [id number] 1959 Self-pay 1959 Unknown [id number] Summary Purpose Family History No Family History Records FoundNo Family History Records FoundNo Family History Records Found Advance Directives No Advanced Directives Records FoundNo Advanced Directives Records FoundNo Advanced Directives Records Found Additional Source Comments INFORMATION SOURCE (unrecogn ized section and content) DATE CREATED AUTHOR 02/11/2021 [facility] DATE CREATED AUTHOR AUTHOR'S ORGANIZ ATION 09/23/2023 [facility] DATE CREATED AUTHOR AUTHOR'S ORGANIZ ATION 06/05/2024 [facility] EPIC FOR RECORDS PERTAINING TO PATIENTS [...] BE BASED ON THE PRIMARY CLINICAL RECORDS. [facility] [employer] provides no warranty or guarantee of the accuracy or completeness of information in this document.
[2024-07-14 10:00] LABS: Basophils Percent Auto 0.2 % (0.2-2.0); Eosinophils Absolute Auto 0.1 10^3/uL (0.0-0.7); Eosinophils Percent Auto 3.4 % (0.9-7.0); Hematocrit 40.7 % (36.0-48.0); Hemoglobin 13.5 g/dL (12.0-16.0); Lymphocytes Absolute Auto 1.5 10^3/uL (1.2-3.8); Mean Corpuscular HGB Conc 33.2 g/dL (29.9-35.2); Mean Corpuscular Hemoglobin 30.5 pg (26.7-34.0); Mean Corpuscular Volume 92.1 fL (81.0-99.0); Monocytes Absolute Auto 0.3 10^3/uL (0.3-0.8); Monocytes Percent Auto 7.2 % (1.7-12.0); Neutrophils Absolute Auto 2.2 10^3/uL (1.4-6.5); Neutrophils Percent Auto 53.2 % (43.0-75.0); Platelet Count 191 10^3/uL (150-450); Red Blood Count 4.42 10^6/uL (4.20-5.40); Red Cell Distribution Width 11.5 % (11.0-15.0); White Blood Count 4.1 10^3/uL (4.0-11.0)
[2024-07-14 10:36] LABS: Free T3 2.67 pg/mL (2.18-3.98); Thyroid Stimulating Hormone 1.615 uIU/mL (0.358-3.740)
[2024-07-14 11:27] LABS: Free T4 0.92 ng/dL (0.76-1.46)
[2024-07-15 11:06] LABS: Progesterone 0.2 ng/mL (.)
[2024-07-16 17:09] LABS: Cortisol - AM 10.8 ug/dL (6.2-19.4)
[2024-07-19 18:11] LABS: Free Testosterone(Direct) 0.7 pg/mL (0.0-4.2); Testosterone 6 ng/dL (8-60)
== END 2024-07-14 09:01 | disposition home or self-care (01) ==
LOC: LAB 09:01
PROVIDERS: PCP Family Medicine; Visit Provider Emergency Medicine
DX: Z00.00 Encounter for general adult medical examination without abnormal findings (principal); N95.9 Unspecified menopausal and perimenopausal disorder
CPT/HCPCS: 36415; 80053; 80061; 82533; 82670; 84144; 84402; 84403; 84439; 84443; 84481; 85025

== ENCOUNTER 2024-07-14 09:02 | Outpatient (OUT) | payer OTHER, SELFPAY ==
--- OUTSIDE RECORDS SUMMARY | 2024-07-14 09:04 | XMS_ITS | CCD ---
Author Organization [facility] Inform ion Partnership [facility] Care Team Providers Care Screw Machine Set Up Operator Name Role Phone ORESTES, DR ZACH Woodward [...] SURGICAL PATH REPORTon 09-21 SURGICAL PATH REPORT [facility] Department of Pathology [address] [place] [phone] Name: EDY BLEDSOE : 1985 [facility] [id number] Number: Gender Female [facility] : n: Admit 38 years Attending NHAN MEIER Age: Provider: Ordering NHAN MEIER Provider: Consulti Surgical Pathology Report ng: ACCESSION: COLLECTED DATE/TIME: RECEIVED DATE/TIME: PATHOLOGIST: [id number] 09/16/2023 10:20 EST 09/19/2023 13:49 SEFERINO BRAXTON MD, ZACKARY GOSS Final Diagnosis Report for [place], [place] BILATERAL FALLOPIAN TUBES, BILATERAL SALPINGECTOMY: - [...] are serially sectioned in a transverse manner. Tractor Engine Assembler sections are submitted under the following designations: #1 - first described fallopian tube #2 - second described fallopian tube BRIGHT/slteodora ____ Print 09/21/2023 08:50 EST Number: Date/Time: [facility] Department of Pathology [address] [place], [place] [id number] Name: EDY BLESDOE : 1985 [facility] [id number] Number: Gender Female [facility] : n: Admit 38 years Attending NHAN MEIER Age: Provider: Ordering NHAN MEIER Provider: Consulti Surgical Pathology Report ng: ACCESSION: COLLECTED DATE/TIME: RECEIVED DATE/TIME: PATHOLOGIST: [id number] 09/16/2023 10:20 EST 09/19/2023 13:49 EST FOX ALLEN, ZACKARY GOSS Gross Description 09/19/2023 Microscopic Diagnosis The final diagnosis is based on a microscopic exam of footwear sales representative sections. Codes CPT CODE: 24639 ____ Print 09/21/2023 08:50 EST Number: Date/Time: Normal [facility] Comment on above: Performed By: #### [id number] #### [facility] [id number] [id number] Oncology Physician: Branden Zhao MD TESTOSTERONE, FREE,DIRECT, T OTALon 11-26-2020 Free Testosterone(Direct ) 0.6 pg/mL Normal 0.0-4.2 [facility] Comment on above: Result Comment: Perf ormed at: BN Performed By: #### T ESTFRD #### [facility] [address] [place], [place] [id number] Awaroselyn Stevenson Testosterone [Mass/Vol] 14 ng/dL Normal 8-48 [facility] Comment on above: Result Comment: Perf ormed at: CB Performed By: #### T ESTFRD #### [facility] [address] [place] [id number] Awa Stevenson ZINC SERUM OR PLASMAon 11-26 Zinc, Plasma or Serum 106 ug/dL Normal 44-115 [facility] Comment on above: Result Comment: Dete ction Limit = 5 . Please note reference interval change Performed By: #### L BCLH #### [facility] [address] [place] [id number] Awa Stevenson VIT D 1 25 DIHYDROXYon 11-25 Calcitriol(1,25 di-OH Vit D) 47.3 pg/mL Normal 19.9-79.3 [facility] Comment on above: Performed By: #### V [id number] #### [facility] [address] [place], [place] [id number] Awa Stevenson DHEA-SULFATEon 11-23-2020 DHEA-Sulfate 69.0 ug/dL Normal 57.3-279.2 [facility] Comment on above: Performed By: #### L TIM #### [facility] [address] [place] [address] Awa Stevenson FSHon 11-23-2020 FSH 7.5 mIU/mL Normal [facility] Comment on above: Result Comment: Adul t Female: Follicular phase 3.5 - 12.5 Ovulation phase 4.7 - 21.5 Luteal phase 1.7 - 7.7 Postmenopausal 25.8 - 134.8 Performed By: #### L TIM #### [facility] [address] [place] [address] Awa Stevenson LUTEINIZING HORMONE (LH)on 0 11-23-2020 LH 9.8 mIU/mL Normal [facility] Comment on above: Result Comment: Adul t Female: Follicular phase 2.4 - 12.6 Ovulation phase 14.0 - 95.6 Luteal phase 1.0 - 11.4 Postmenopausal 7.7 - 58.5 Performed By: #### L TIM #### [facility] [address] [place] [address] Awa Stevenson PROLACTINon 11-23-2020 Prolactin 9.7 ng/mL Normal 4.8-23.3 [facility] Comment on above: Performed By: #### P ROLANNITA #### [facility] [address] [place], [place] [id number] Awa Stevenson CBC AUTO DIFFon 11-22-2020 BASO # 0.0 103/ul Normal 0.0-0.1 [facility] Comment on above: Performed By: #### C BC #### [facility] [address] [place], [place] [phone] Awa Stevenson Basophils/100 WBC (Bld) 0.2 % Normal 0.2-2.0 [facility] Comment on above: Performed By: #### C BC #### [facility] [address] [place] [address] Awa Elva EO # 0.0 103/ul Normal 0.0-0.7 [facility] Comment on above: Performed By: #### C BC #### [facility] [address] [place], [place] [id number] Awa Elva Eosinophils/100 WBC (Bld) 1.0 % Normal 0.9-7.0 [facility] Comment on above: Performed By: #### C BC #### [facility] [address] [place], [place] [phone] Awa Elva Erythrocyte distribution width (RBC) [Ratio] 11.2 % Normal 11.0-15.0 [facility] Comment on above: Performed By: #### C BC #### [facility] [address] [place] [address] Awa Elva Hematocrit (Bld) [Volume fraction] 42.3 % Normal 36.0-48.0 [facility] Comment on above: Performed By: #### C BC #### [facility] [address] [place] [address] Awa Elva Hemoglobin (Bld) [Mass/Vol] 14.4 g/dL Normal 12.0-16.0 [facility] Comment on above: Performed By: #### C BC #### [facility] [address] [place] [address] Awa Elva IG # 0.01 10e3/ul Normal 0.00-0.03 [facility] Comment on above: Performed By: #### C BC #### [facility] [address] [place] [address] Awa Elva IG % 0.2 % Normal 0.0-0.5 [facility] Comment on above: Performed By: #### C BC #### [facility] [address] [place] [address] Awa Elva LYMPH # 1.6 103/ul Normal 1.2-3.8 [facility] Comment on above: Performed By: #### C BC #### [facility] [address] [place] [address] Awa Elva Lymphocytes/100 WBC (Bld) 39.3 % Normal 20.5-60.0 [facility] Comment on above: Performed By: #### C BC #### [facility] [address] [place], [place] [phone] Awa Elva MANUAL DIFF REQ NO Normal [facility] Comment on above: Performed By: #### C BC #### [facility] [address] [place], [place] [phone] Awa Elva MCH (RBC) [Entitic mass] 30.6 pg Normal 26.7-34.0 [facility] Comment on above: Performed By: #### C BC #### [facility] [address] [place] [address] Awaroselyn Stevenson MCHC (RBC) [Mass/Vol] 34.0 g/dL Normal 29.9-35.2 [facility] Comment on above: Performed By: #### C BC #### [facility] [address] [place] [address] Awa Elva MCV (RBC) [Entitic vol] 90.0 fL Normal 81.0-99.0 [facility] Comment on above: Performed By: #### C BC #### [facility] [address] [place] [address] Awa Elva MONO # 0.3 103/ul Normal 0.3-0.8 [facility] Comment on above: Performed By: #### C BC #### [facility] [address] [place], [place] [address] Awa Elva Monocytes/100 WBC (Bld) 6.7 % Normal 1.7-12.0 [facility] Comment on above: Performed By: #### C BC #### [facility] [address] [place] [address] Awa Elva NEUT # 2.1 103/ul Normal 1.4-6.5 [facility] Comment on above: Performed By: #### C BC #### [facility] [address] [place], [place] [address] Awa Elva Neutrophils/100 WBC (Bld) 52.6 % Normal 43.0-75.0 [facility] Comment on above: Performed By: #### C BC #### [facility] [address] [place], [place] [address] Awa Elva Platelet mean volume (Bld) [Entitic vol] 9.3 fL Critically low 9.5-13.5 [facility] Comment on above: Performed By: #### C BC #### [facility] [address] [place] [address] Awa Stevenson PLT 207 103/ul Normal 150-450 [facility] Comment on above: Performed By: #### C BC #### [facility] [address] [place] [address] Awa Stevenson RBC 4.70 106/ul Normal 4.20-5.40 [facility] Comment on above: Performed By: #### C BC #### [facility] [address] [place] [address] Awa Stevenson WBC 4.0 103/ul Normal 4.0-11.0 [facility] Comment on above: Performed By: #### C BC #### [facility] [address] [place] [address] Awa Stevenson FREE T3on 11-22-2020 FREE T3 2.77 pg/mlL Normal 2.77-5.27 [facility] Comment on above: Performed By: #### F T3, TSH #### [facility] [address] [place] [address] Awa Stevenson FREE T4on 11-22-2020 Free T4 [Mass/Vol] 1.13 ng/dL Normal 0.78-2.19 [facility] Comment on above: Performed By: #### V ITB12, IRON, FT4 #### [facility] [address] [place] [address] Awaroselyn Fonsecaen IRONon 11-22-2020 Iron [Mass/Vol] 101.0 ug/dL Normal 37.0-170.0 [facility] Comment on above: Performed By: #### V ITB12, IRON, FT4 #### [facility] [address] [place] [address] Awaroselyn Fonsecaen TSHon 11-22-2020 TSH 1.202 uIU/mL Normal 0.470-4.680 [facility] Comment on above: Performed By: #### F T3, TSH #### [facility] [address] [place], [place] [address] Awa Stevenson TSH RANGE SEE BELOW Normal [facility] Comment on above: Result Comment: <0.3 4 UIU/ml HYPERTHYROID 0.34-5.60 UIU/ml EUTHYROID >5.60 UIU/ml HYPOTHYROID Performed By: #### F T3, TSH #### [facility] [address] [place], [place] [address] Awa Stevenson VITAMIN B12on 11-22-2020 Cobalamin (Vitamin B12) [Mass/Vol] 324.0 pg/mL Normal 239.0-931.0 [facility] Comment on above: Performed By: #### V ITB12, IRON, FT4 #### [facility] [address] [place], [place] [address] Awa Stevenson Encounters Encounter Date Encounter Type Care Provider Facility Start: 06-04-2024 End: 06-04-2024 ambulatory MEI PUMP Not Available Start: 11-03-2023 End: 11-03-2023 ambulatory ANIVAL BLEDSOE Not Available Start: 10-03-2023 End: 10-03-2023 ambulatory RIK MOTA Not Available Start: 09-16-2023 End: 09-17-2023 ambulatory NHAN MEIRE Facility:[facility] Start: 01-14-[address] ZACH CARLISLE Facchico lity:H1 Start: 11-22-2020 End: 11-23-2020 ambulatory EFFIE TRIMBLE Facility: Payers Date Payer Category Payer Unknown [id number] 2.16.84 [id number] 1985 Unknown [id number] 2.16.84 [id number] 1985 Unknown [id number] 2.16.8 [id number] 1985 Unknown [id number] 2.16.84 [id number] 1985 Unknown [id number] 2.16.84 [id number] 1985 Unknown [id number] 1959 Self-pay 1959 Unknown [id number] Summary Purpose Family History No Family History Records FoundNo Family History Records FoundNo Family History Records Found Advance Directives No Advanced Directives Records FoundNo Advanced Directives Records FoundNo Advanced Directives Records Found Additional Source Comments INFORMATION SOURCE (unrecogn ized section and content) DATE CREATED AUTHOR 02/11/2021 [facility] DATE CREATED AUTHOR AUTHOR'S ORGANIZ ATION 09/23/2023 [facility] DATE CREATED AUTHOR AUTHOR'S ORGANIZ ATION 06/05/2024 [facility] EPIC FOR RECORDS PERTAINING TO PATIENTS [...] BE BASED ON THE PRIMARY CLINICAL RECORDS. [facility] [employer] provides no warranty or guarantee of the accuracy or completeness of information in this document.
[2024-07-14 10:29] LABS: Alanine Aminotransferase 24 U/L (14-59); Albumin Globulin Ratio 1.5; Albumin Level 3.9 g/dL (3.4-5.0); Alkaline Phosphatase 67 U/L (46-116); Anion Gap 10.8; Aspartate Amino Transferase 18 U/L (15-37); Bilirubin Total 0.9 mg/dL (0.2-1.0); Calcium 8.7 mg/dL (8.5-10.1); Carbon Dioxide 28.5 mmol/L (21.0-32.0); Chloride 105 mmol/L (98-107); Cholesterol 156 mg/dL (<=200); Estimated GFR (African America >60 (>=60); Estimated GFR (Non-African Ame 53 (>=60); Globulin 2.6 g/dL; Glucose 92 mg/dL (74-106); Potassium 4.3 mmol/L (3.5-5.1); Sodium 140 mmol/L (136-145); Total Protein 6.5 g/dL (6.4-8.2); Triglycerides 31 mg/dL (<=150); VLDL CHOLESTEROL 6.2 mg/dL
[2024-07-14 10:30] LABS: Chol HDL Ratio 2.3; HDL Cholesterol 67 mg/dL (40-60)
== END 2024-07-14 09:03 | disposition home or self-care (01) ==
LOC: LAB 09:02
PROVIDERS: PCP Family Medicine; Visit Provider Nurse Practitioner Family
DX: Z00.00 Encounter for general adult medical examination without abnormal findings (principal)
CPT/HCPCS: 36415; 80053; 80061

== ENCOUNTER 2024-11-10 08:17 | Outpatient (OUT) | payer OTHER, SELFPAY ==
--- OUTSIDE RECORDS SUMMARY | 2024-11-10 08:21 | XMS_ITS | CCD ---
Author Organization [facility] Care Team Providers Care Ux Information Architect Name Role Phone DR LIANNA CARLISLE Admitting Unavailable ORESTES, DR LIANNA Woodward Attending Unavailable EFFIE TRIMBLE Consulting Unavailable EFFIE TRIMBLE Attending Jazzmine CARLISLE, DR LIANNA Woodward Primary Care Unavailable EFFIE RTIMBLE Admitting Unavailable NHAN DIA Attending Unavailable Lianna Carlisle MD Primary Care Provider Lianna Carlisle MD Unavailable [phone] ANIVAL BLEDSOE Attending Unavailable PUMP, RENEE Attending Unavailable RIK MOTA Attending Unavailable PUMP, RENEE Attending Unavailable DEMARCO FERNANDEZ Attending Unavailable Lianna Carlisle MD Primary Care Provider Lianna Carlisle MD Unavailable Medications Current Medications Medication Drug Class(es) Dates Sig (Normalized) Sig (Original) ketoconazole 20 mg/ml medicated shampoo (6 sources) Azole Antifungal Start: 08-02-2024 ketoconazole (NIZOral) 2 % shampoo APPLY TO AFFECTED AREAS ON SHOULDERS. LEAVE ON FOR 1-2 MINUTES THEN RINSE OFF 08/02/2024 Active Multiple Vitamins-Minerals (MULTIVITAMIN ADULT, MINERALS, PO) (11 sources) Multiple Vitamins-Minerals (MULTIVITAMIN ADULT, MINERALS, PO) Take by mouth. Active progesterone 100 mg oral capsule (11 sources) Progesterone take 1 capsule by mouth in the morning progesterone 100 MG capsule Take 100 mg by mouth in the morning. Pt unsure of dose. Active spironolactone 100 mg oral tablet (12 sources) Aldosterone Antagonist Start: 08-29-2024 take 1 tablet by mouth in the morning spironolactone (Aldactone) 100 MG tablet Indications: Other acne Take 1 tablet (100 mg) by mouth in the morning. 90 tablet 08/29/2024 Active Start: 03-28-2024 End: 08-13-2024 take 1 tablet by mouth once daily in the morning spironolactone (Aldactone) 100 MG tablet Indications: Other acne TAKE 1 TABLET BY MOUTH EVERY DAY IN THE MORNING 90 tablet 03/28/2024 08/13/2024 Discontinued (Reorder) Testosterone (6 sources) Androgen Testosterone 20 % cream LOW DOSE Active tretinoin 0.5 mg/ml topical cream (6 sources) Retinoid Start: 08-03-2024 tretinoin (Ret in-A) 0.05 % cream APPLY TO AFFECTED AREA DAILY AT BEDTIME TOLERATED 08/03/2024 Active Problems Active Problems Problem Classification Problem Date Documented Da te Episodic/Chronic Allergic reactions (2 sources) Non-celiac gluten sensitivity; 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 Other endocrine disorders (4 sources) Polycystic ovarian syndrome; Translations: [POLYCYSTIC OVARIAN SYNDROME] Onset: 11-22-2020 Chronic Other inflammatory condition of skin (2 sources) Pruritus ani; Translations: [Pruritus ani] 08-29-2024 Episodic Other screening for suspected conditions (not mental disorders or infectious disease) (2 sources) Cancer cervix screening status; Translations: [Encounter for screening for malignant neoplasm of cervix] 09-11-2024 Episodic Other skin disorders (1 source) Acne; Translations: [Other acne] 08-13-2024 Episodic Past or Other Problems Problem Classification Problem Date Documented Da te Episodic/Chronic Mood disorders (11 sources) Mood disorders Onset: 06-02-2023 06-02-2023 Results Test Name Value Interpretation Reference Range Facility Laboratory - Cytology 12-0 Roof Bolter Helper Cyto stain Nom (Cvx/Vag) [ID] [facility] Comment on above: SPS, CT(ASCP) CT Scr eening Location: [place] [address] LXT, CT(ASCP) CT scr eening location: [place] [address]. Cytology study comment Cyto stain Vamshi (Cvx/Vag) [Interp] [facility] Comment on above: This Pap test has be en evaluated with computer assisted technology. Microscopic observation Cyto stain Nom (Cvx) [facility] Comment on above: Cytology Results: Ne gative for intraepithelial lesion or malignancy. Specimen source Cyto stain Nom (Cvx/Vag) [facility] are Comment on above: None given Statement of adequacy Cyto stain (Cvx/Vag) [Interp] [facility] Comment on above: Satisfactory for naveen luation. Endocervical/transformation zone component present. Laboratory - Microbiology an d Antimicrobial susceptibilityon 09-18-2024 HPV 16+18+31+33+35+39+45+ 51+52+56+58+59+66+68 DNA TAMMY+probe Ql (Cvx) Not detected NOT DETECTED [facility] Comment on above: Not Detected High Risk HPV types (16,18,31,33,35,39,45,51,52, 56,58,59,66,68) were not detected. Other HPV types which cause anogenital lesions may be present. The significance of the other types of HPV in malignant processes has not been established. Methodology: Real Time PCR No Panel Informationon 09-18 (ALWAYS MESSAGE) [facility] Comment on above: EXPLANATORY NOTE: The Pap is a screening test for cervical cancer. It is not a diagnostic test and is subject to false negative and false positive results. It is most reliable when a satisfactory sample, regularly obtained, is submitted with relevant clinical findings and history, and when the Pap result is evaluated along with historic and current clinical information. Clinical information [facility] Comment on above: None given Date of previous biopsy [facility] Comment on above: NONE GIVEN Date of previous PAP smear [facility] Comment on above: NONE GIVEN Last menstrual period start date [facility] Comment on above: NONE GIVEN Performing Organization Information Site ID: [id number] Name: [facility] Address: [address] [place] [address] [place], [place] Director: Jose Hodgson M.D.,PhD Site ID: [id number] Name: [facility] Address: [address] [place] [address], [address] [place] [phone] Director: Boo Soni MD [facility] ALL CBC WITH AUTO DIFFon BASOPHILS ABSOLUTE AUTO 0.0 [facility] Basophils/100 WBC (Bld) 0.2 % 0.2 - 2.0 % [facility] Eosinophils/100 WBC (Bld) 3.4 % 0.9 - 7.0 % [facility] Erythrocyte distribution width (RBC) [Ratio] 11.5 % 11.0 - 15.0 % [facility] Hematocrit (Bld) [Volume fraction] 40.7 % 36.0 - 48.0 % [facility] Hemoglobin (Bld) [Mass/Vol] 13.5 g/dL 12.0 - 16.0 g/dL [facility] IMMATURE GRANULOCYTES ABS AUTO 0.00 [facility] Immature granulocytes/100 WBC (Bld) 0.0 % 0.0 - 0.5 % [facility] LYMPHOCYTES ABSOLUTE AUTO 1.5 [facility] Lymphocytes/100 WBC (Bld) 36.0 % 20.5 - 60.0 % [facility] MCH (RBC) [Entitic mass] 30.5 pg 26.7 - 34.0 pg [facility] MCHC (RBC) [Mass/Vol] 33.2 g/dL 29.9 - 35.2 g/dL [facility] MCV (RBC) [Entitic vol] 92.1 fL 81.0 - 99.0 fL [facility] MONOCYTES ABSOLUTE AUTO 0.3 [facility] Monocytes/100 WBC (Bld) 7.2 % 1.7 - 12.0 % [facility] NEUTROPHILS ABSOLUTE AUTO 2.2 [facility] Neutrophils/100 WBC (Bld) 53.2 % 43.0 - 75.0 % [facility] Platelet mean volume (Bld) [Entitic vol] 10.0 fL 9.5 - 13.5 fL [facility] EO # 0.1 [facility] PLT 191 [facility] RBC 4.42 [facility] WBC 4.1 [facility] SURGICAL PATH REPORTon 09-21 SURGICAL PATH REPORT [facility] Department of Pathology [address] [place] [id number] Name: KRYSTINA BLEDSOE : 1985 [facility]ly [facility] [id number] Number: Gender Female Locatio [facility] ESTEFANIA : n: Admit 38 years Attending NHAN DIA Age: Provider: Ordering NHAN DIA Provider: Consulti Surgical Pathology Report ng: ACCESSION: COLLECTED DATE/TIME: RECEIVED DATE/TIME: PATHOLOGIST: [id number] 09/16/2023 10:20 EST 09/19/2023 13:49 SEFERINO BRAXTON MD, ZACKARY GOSS Final Diagnosis Report for [facility], [place], [place] BILATERAL FALLOPIAN TUBES, BILATERAL SALPINGECTOMY: - [...] are serially sectioned in a transverse manner. Endoscopy Technician sections are submitted under the following designations: #1 - first described fallopian tube #2 - second described fallopian tube MP/slb ____ Print 09/21/2023 08:50 EST Number: Date/Time: [facility] Department of Pathology [address] [place] [id number] Name: KRYSTINA BLEDSOE : 1985 Formerly [facility] [id number] Number: Gender Female Locatio [facility] ESTEFANIA : n: Admit 38 years Attending NHAN DIA Age: Provider: Ordering NHAN DIA Provider: Consulti Surgical Pathology Report ng: ACCESSION: COLLECTED DATE/TIME: RECEIVED DATE/TIME: PATHOLOGIST: [id number] 09/16/2023 10:20 EST 09/19/2023 13:49 EST FOX ALLEN, ZACKARY GOSS Gross Description 09/19/2023 Microscopic Diagnosis The final diagnosis is based on a microscopic exam of lifeline representatives sections. Codes CPT CODE: 30989 ____ Print 09/21/2023 08:50 EST Number: Date/Time: Normal [facility] Comment on above: Performed By: #### 9 [id number] #### [facility] Services [address] [place] [address] Instrumental Music Teacher: Branden Zhao MD TESTOSTERONE, FREE,DIRECT, T OTALoemily 11-26-2020 Free Testosterone(Direct) 0.6 pg/mL Normal 0.0-4.2 [facility] Comment on above: Result Comment: Perf ormed at: BN Performed By: #### T ESTFRD #### [facility] [address] [place] [address] Awa Elva Testosterone [Mass/Vol] 14 ng/dL Normal 8-48 [facility] Comment on above: Result Comment: Perf ormed at: CB Performed By: #### T ESTFRD #### [facility] [address] [place] [address] Awa Elva ZINC SERUM OR PLASMAon 11-26 Zinc, Plasma or Serum 106 ug/dL Normal 44-115 [facility] Comment on above: Result Comment: Dete ction Limit = 5 . Please note reference interval change Performed By: #### L BCL #### [facility] [address] [place], [place] [id number] Awa Stevenson VIT D 1 25 DIHYDROXYon 11-25 Calcitriol(1,25 di-OH Vit D) 47.3 pg/mL Normal 19.9-79.3 [facility] Comment on above: Performed By: #### V PGE071 #### [facility] [address] [place] [address] Awa Stevenson DHEA-SULFATEon 11-23-2020 DHEA-Sulfate 69.0 ug/dL Normal 57.3-279.2 [facility] Comment on above: Performed By: #### L TIM #### [facility] [address] [place] [address] Awa Stevenson FSHon 11-23-2020 FSH 7.5 mIU/mL Normal [facility] Comment on above: Result Comment: Adul t Female: Follicular phase 3.5 - 12.5 Ovulation phase 4.7 - 21.5 Luteal phase 1.7 - 7.7 Postmenopausal 25.8 - 134.8 Performed By: #### L BCL #### [facility] [address] [place] [address] Awa Stevenson LUTEINIZING HORMONE (LH)on 0 11-23-2020 LH 9.8 mIU/mL Normal [facility] Comment on above: Result Comment: Adul t Female: Follicular phase 2.4 - 12.6 Ovulation phase 14.0 - 95.6 Luteal phase 1.0 - 11.4 Postmenopausal 7.7 - 58.5 Performed By: #### L BCL #### [facility] [address] [place] [address] Awa Stevenson PROLACTINon 11-23-2020 Prolactin 9.7 ng/mL Normal 4.8-23.3 [facility] Comment on above: Performed By: #### P ROLAC #### [facility] [address] [place], [place] [id number] Awa Stevenson CBC AUTO DIFFon 11-22-2020 BASO # 0.0 103/ul Normal 0.0-0.1 [facility] Comment on above: Performed By: #### C BC #### [facility] [address] [id number] Awa Elva Basophils/100 WBC (Bld) 0.2 % Normal 0.2-2.0 [facility] Comment on above: Performed By: #### C BC #### [facility] [address] [place], [place] [address] Awa Elva EO # 0.0 103/ul Normal 0.0-0.7 [facility] Comment on above: Performed By: #### C BC #### [facility] [address] [place], [place] [address] Awa Elva Eosinophils/100 WBC (Bld) 1.0 % Normal 0.9-7.0 [facility] Comment on above: Performed By: #### C BC #### [facility] [address] [place] [address] Awa Elva Erythrocyte distribution width (RBC) [Ratio] 11.2 % Normal 11.0-15.0 [facility] Comment on above: Performed By: #### C BC #### [facility] [address] [place], [place] [id number] Awa Elva Hematocrit (Bld) [Volume fraction] 42.3 % Normal 36.0-48.0 [facility] Comment on above: Performed By: #### C BC #### [facility] [address] [place], [place] [address] Awa Elva Hemoglobin (Bld) [Mass/Vol] 14.4 g/dL Normal 12.0-16.0 [facility] Comment on above: Performed By: #### C BC #### [facility] [address] [place] [address] Awa Elva IG # 0.01 10e3/ul Normal 0.00-0.03 [facility] Comment on above: Performed By: #### C BC #### [facility] [address] [place] [address] Awa Elva IG % 0.2 % Normal 0.0-0.5 [facility] Comment on above: Performed By: #### C BC #### [facility] [address] [place], [place] [address] Awa Elva LYMPH # 1.6 103/ul Normal 1.2-3.8 [facility] Comment on above: Performed By: #### C BC #### [facility] [address] [place], [place] [address] Awa Elva Lymphocytes/100 WBC (Bld) 39.3 % Normal 20.5-60.0 [facility] Comment on above: Performed By: #### C BC #### [facility] [address] [place], [place] [address] Awa Elva MANUAL DIFF REQ NO Normal [facility] Comment on above: Performed By: #### C BC #### [facility] [address] [place], [place] [id number] Awa Elva MCH (RBC) [Entitic mass] 30.6 pg Normal 26.7-34.0 [facility] Comment on above: Performed By: #### C BC #### [facility] [address] [place] [address] Awa Elva MCHC (RBC) [Mass/Vol] 34.0 g/dL Normal 29.9-35.2 [facility] Comment on above: Performed By: #### C BC #### [facility] [address] [place], [place] [address] Awa Elva MCV (RBC) [Entitic vol] 90.0 fL Normal 81.0-99.0 [facility] Comment on above: Performed By: #### C BC #### [facility] [address] [place] [address] Awa Elva MONO # 0.3 103/ul Normal 0.3-0.8 [facility] Comment on above: Performed By: #### C BC #### [facility] [address] [place], [place] [address] Awa Elva Monocytes/100 WBC (Bld) 6.7 % Normal 1.7-12.0 [facility] Comment on above: Performed By: #### C BC #### [facility] [address] [place], [place] [address] Awa Elva NEUT # 2.1 103/ul Normal 1.4-6.5 [facility] Comment on above: Performed By: #### C BC #### [facility] [address] [place] [address] Awa Stevenson Neutrophils/100 WBC (Bld) 52.6 % Normal 43.0-75.0 [facility] Comment on above: Performed By: #### C BC #### [facility] [address] [place] [address] Awa Stevenson Platelet mean volume (Bld) [Entitic vol] 9.3 fL Critically low 9.5-13.5 [facility] Comment on above: Performed By: #### C BC #### [facility] [address] [place] [address] Awa Stevenson PLT 207 103/ul Normal 150-450 [facility] Comment on above: Performed By: #### C BC #### [facility] [address] [place] [address] Awa Stevenson RBC 4.70 106/ul Normal 4.20-5.40 [facility] Comment on above: Performed By: #### C BC #### [facility] [address] [place] [address] Awa Stevenson WBC 4.0 103/ul Normal 4.0-11.0 [facility] Comment on above: Performed By: #### C BC #### [facility] [address] [place] [address] Awa Stevenson FREE T3on 11-22-2020 FREE T3 2.77 pg/mlL Normal 2.77-5.27 [facility] Comment on above: Performed By: #### F T3, TSH #### [facility] [address] [place] [address] Awa Stevenson FREE T4on 11-22-2020 Free T4 [Mass/Vol] 1.13 ng/dL Normal 0.78-2.19 [facility] Comment on above: Performed By: #### V ITB12, IRON, FT4 #### [facility] [address] [place] [address] Awa Stevenson IRONon 11-22-2020 Iron [Mass/Vol] 101.0 ug/dL Normal 37.0-170.0 [facility] Comment on above: Performed By: #### V ITB12, IRON, FT4 #### [facility] [address] [place] [address] Awa Stevenson TSHon 11-22-2020 TSH 1.202 uIU/mL Normal 0.470-4.680 [facility] Comment on above: Performed By: #### F T3, TSH #### [facility] [address] [place], [place] [address] TSH RANGE SEE BELOW Normal [facility] Comment on above: Result Comment: <0.3 4 UIU/ml HYPERTHYROID 0.34-5.60 UIU/ml EUTHYROID >5.60 UIU/ml HYPOTHYROID Performed By: #### F T3, TSH #### [facility] [address] [place] [address] Awa Stevenson VITAMIN B12on 11-22-2020 Cobalamin (Vitamin B12) [Mass/Vol] 324.0 pg/mL Normal 239.0-931.0 [facility] Comment on above: Performed By: #### V ITB12, IRON, FT4 #### [facility] [address] [place], [place] [address] Awa Stevenson Vital Signs Date Time Vital Sign Value Performing Clinician Cheryli lity 09-11-2024 15:09-0500 Body mass index (BMI) [Ratio] 23.72 kg/m2 Demarco Hills CN Work Phone: [facility] 09-11-2024 15:09-0500 Body weight 70.76 kg Demarco [facility] CNM Work Phone: [facility] 08-29-2024 11:35-0500 Body mass index (BMI) [Ratio] 23.99 kg/m2 Renee Pump [employer] Work Phone: [facility] 08-29-2024 11:35-0500 Body weight 71.58 kg Renee Pump [employer] Work Phone: [facility] 08-29-2024 11:35-0500 Diastolic blood pressure 74 mm[Hg] Renee Pump [employer] Work Phone: [facility] 08-29-2024 11:35-0500 Heart rate 68 /min Renee Pump [employer] Work Phone: [facility] 08-29-2024 11:35-0500 Systolic blood pressure 116 mm[Hg] Renee Pump [employer] Work Phone: [facility] 06-04-2024 13:13-0400 Body height 172.7 cm Renee Pump [employer] Work Phone: [facility] 06-04-2024 13:13-0400 Body mass index (BMI) [Ratio] 23.87 kg/m2 Renee Pump [employer] Work Phone: [facility] 06-04-2024 13:13-0400 Body weight 71.22 kg Renee Pump [employer] Work Phone: [facility] 06-04-2024 13:13-0400 Diastolic blood pressure 64 mm[Hg] Renee Pump [employer] Work Phone: [facility] 06-04-2024 13:13-0400 Heart rate 72 /min Renee Pump [employer] Work Phone: [facility] 06-04-2024 13:13-0400 Systolic blood pressure 100 mm[Hg] Renee Pump [employer]MER Work Phone: [facility] Healthcare Encounters Encounter Date Encounter Type Care Provider Facility Start: 09-11-2024 End: 09-11-2024 Gynecological examination normal Demarco Sandra Hillso CNM Work Phone: [facility] Start: 09-11-2024 End: 09-11-2024 Periodic preventive med est patient 18-39 yrs Demarco L Mandyo CNM Work Phone: [facility] Comment on above: Normal gynecologic e xamination; Screening for cervical cancer Start: 09-11-2024 End: 09-11-2024 ambulatory DEMARCO Sandra HILLSO Not Available Start: 09-11-2024 End: 09-11-2024 Bamboo flowsheet Demarco L Floro CNM Work Phone: [facility] Start: 09-11-2024 End: 09-11-2024 Bamboo flowsheet Demarco Fernandez CNM Work Phone: [facility] Start: 09-04-2024 End: 09-04-2024 Telephone encounter Lianna Carlisle MD Work Phone: [facility] Start: 08-29-2024 End: 08-29-2024 Bamboo flowsheet Renee Pump [employer] Work Phone: [facility] Start: 08-29-2024 End: 08-29-2024 Bamboo flowsheet Renee Pump [employer] Work Phone: [facility] Start: 08-29-2024 End: 08-29-2024 Office outpatient visit 15 minutes Renee Pump [employer] Work Phone: [facility] Comment on above: Anal itching (Primar y Dx) Start: 08-29-2024 End: 08-29-2024 ambulatory RENEE PUMP Not Available Start: 08-13-2024 End: 08-29-2024 Refill Demarco Fernandez CNM Work Phone: [facility] Comment on above: Other acne Start: 07-14-2024 End: 07-14-2024 [facility] Result Encounter Generic External Data Provider [facility] Unsolicited Start: 07-14-2024 End: 07-14-2024 [facility] Result Encounter Generic External Data Provider [facility] Unsolicited Start: 06-04-2024 End: 06-04-2024 Patient encounter status Renee Pump [employer] Work Phone: [facility] Work Phone: Start: 06-04-2024 End: 06-04-2024 Periodic preventive med est patient 18-39 yrs Renee Pump [employer] Work Phone: [facility] Comment on above: Wellness examination (Primary Dx); Gluten intolerance Start: 06-04-2024 End: 06-04-2024 ambulatory RENEE PUMP Not Available Start: 11-03-2023 End: 11-03-2023 ambulatory ANIVAL BLEDSOE Not Available Start: 10-03-2023 End: 10-03-2023 ambulatory RIK MOTA Not Available Start: 09-16-2023 End: 09-17-2023 ambulatory NHAN DIA Facility:[facility] Start: 01-14-[address] LIANNA CARLISLE Faci lity:H1 Start: 11-22-2020 End: 11-23-2020 ambulatory EFFIE ATILIO Facility: Procedures Date Procedure Procedure Detail Performing Clinician Start: 09-11-2024 THINPREP IMAGING PAP AND HPV DNA REFLEX HPV 16,18 Demarco Fernandez CNM Work Phone: Start: 08-29-2024 SALMONELLA/SHIGELLA CULT, CAMPY EIA AN DSHIGA TOXIN W/RFL E.COLI 0157 CULT Renee Pump [employer] Work Phone: Start: 07-14-2024 ALL CBC WITH AUTO DIFF Generic External Data Provider Plan of Treatment Date Care Activity Detail Author Start: 05-21-2027 Screening for malign ant neoplasm of cervix [facility] Start: 06-06-2025 End: 06-06-2025 Patient encounter procedure 06/06/2025 4:00 PM EDT Office Visit [facility] [address] [place] [phone] Anival Bledsoe, [employer] [address] [place] [address] [facility] Start: 09-11-2024 End: 09-11-2024 Patient encounter procedure 09/11/2024 3:00 PM EST Office Visit [facility] [address] [place] [phone] Demarco Fernandez CNM [address] [place] [address] [facility] Start: 08-29-2024 End: 08-29-2025 Ova and parasites with giardia antigen [facility] Comment on above: Expected: 08/29/2024 (Approximate), Expires: 08/29/2025 Start: 08-29-2024 End: 08-29-2025 Stool culture Stool culture Microbiology Routine Anal itching Expected: 08/29/2024 (Approximate), Expires: 08/29/2025 [facility] Work Phone: Comment on above: Expected: 08/29/2024 (Approximate), Expires: 08/29/2025 Start: 06-17-2024 Influenza vaccination Influenza Vacc ine (#1) [facility] Start: 06-04-2024 End: 06-04-2025 CBC W Auto Differential panel - Blood CBC and differential Lab Routine Wellness examination Expected: 06/04/2024 (Approximate), Expires: 06/04/2025 [facility] Work Phone: Comment on above: Expected: 06/04/2024 (Approximate), Expires: 06/04/2025 Start: 06-04-2024 End: 06-04-2025 Comprehensive metabolic 2000 panel - Serum or Plasma Comprehensive metabolic panel Lab Routine Wellness examination Expected: 06/04/2024 (Approximate), Expires: 06/04/2025 [facility] Comment on above: Expected: 06/04/2024 (Approximate), Expires: 06/04/2025 Start: 06-04-2024 End: 06-04-2025 Lipid 1996 panel - Serum or Plasma Lipid panel Lab Routine Wellness examination Expected: 06/04/2024 (Approximate), Expires: 06/04/2025 [facility] Comment on above: Expected: 06/04/2024 (Approximate), Expires: 06/04/2025 Start: 06-04-2024 End: 06-04-2025 Tissue transglutaminase, IgA Tissue transglutaminase, IgA Lab Routine Gluten intolerance Expected: 06/04/2024 (Approximate), Expires: 06/04/2025 [facility] Comment on above: Expected: 06/04/2024 (Approximate), Expires: 06/04/2025 Start: 2006 Screening for malign ant neoplasm of cervix Pap Smear [facility] SALMONELLA/SHIGELLA CULT, CAMPY EIA AN DSHIGA TOXIN W/RFL E.COLI 0157 CULT SALMONELLA/SHIGELLA CULT, CAMPY EIA AN DSHIGA TOXIN W/RFL E.COLI 0157 CULT Lab Routine 08/29/2024 12:34 PM EST [facility] Immunizations Immunization Date Immunization Notes Care Provider Kristopher valiente 09-07-2021 influenza, injectabl e, quadrivalent, contains preservative Renee Pump [employer] Work Phone: [facility] 09-07-2021 influenza virus vacc ine, unspecified formulation Renee Pump [employer] Work Phone: [facility] 08-06-2020 influenza, injectabl e, quadrivalent, preservative free Renee Pump [employer] Work Phone: [facility] 08-20-2019 Influenza, injectabl e, [place]in [place] Canine Kidney, preservative free, quadrivalent Renee Pump [employer] Work Phone: [facility] 08-17-2019 influenza, injectabl e, quadrivalent, preservative free Renee Pump [employer] Work Phone: [facility] 08-26-2018 influenza, injectabl e, quadrivalent, preservative free Renee Pump [employer] Work Phone: [facility] 11-29-2017 tetanus toxoid, redu rachel diphtheria toxoid, and acellular pertussis vaccine, adsorbed Renee Pump [employer] Work Phone: [facility] 08-18-2017 influenza, seasonal, injectable Renee Pump [employer] Work Phone: [facility] 07-21-2016 influenza, injectabl e, quadrivalent, preservative free Renee Pump [employer] Work Phone: [facility] 07-16-2015 influenza, seasonal, injectable Renee Pump [employer] Work Phone: [facility] 07-14-2015 influenza, injectabl e, quadrivalent, preservative free Renee Pump [employer] Work Phone: [facility] 08-21-2014 influenza, injectabl e, quadrivalent, contains preservative Renee Pump [employer] Work Phone: [facility] 10-14-2005 hepatitis B vaccine, adult dosage Renee Pump [employer] Work Phone: [facility] 05-17-2005 hepatitis B vaccine, adult dosage Renee Pump [employer] Work Phone: [facility] 04-14-2005 hepatitis B vaccine, adult dosage Renee Pump [employer] Work Phone: [facility] 04-03-1998 measles, mumps and rubella virus vaccine Renee Pump [employer] Work Phone: [facility] 04-03-1998 TD(adult) unspecifie d formulation Renee Pump [employer] Work Phone: [facility] 04-30-1991 diphtheria, tetanus toxoids and pertussis vaccine Renee Pump [employer] Work Phone: [facility] 04-30-1991 trivalent poliovirus vaccine, live, oral Renee Pump [employer] Work Phone: [facility] 02-17-1987 diphtheria, tetanus toxoids and pertussis vaccine Renee Pump [employer] Work Phone: [facility] 02-17-1987 measles, mumps and rubella virus vaccine Renee Pump [employer] Work Phone: [facility] 02-17-1987 trivalent poliovirus vaccine, live, oral Renee Pump [employer] Work Phone: [facility] 04-08-1986 diphtheria, tetanus toxoids and pertussis vaccine Renee Pump [employer] Work Phone: [facility] 02-04-1986 diphtheria, tetanus toxoids and pertussis vaccine Renee Pump [employer] Work Phone: [facility] 02-04-1986 trivalent poliovirus vaccine, live, oral Renee Pump [employer] Work Phone: [facility] 1985 diphtheria, tetanus toxoids and pertussis vaccine Renee Pump [employer] Work Phone: [facility] 1985 trivalent poliovirus vaccine, live, oral Renee Pump [employer] Work Phone: [facility] Payers Date Payer Category Payer Private Health Insurance [employer] [id number] 2022 Unknown [employer] [id number] 2022-Present [address] [place] [address] [id number] 1985 Unknown [id number] 1985 Unknown [id number] 1985 Unknown [id number] 1985 Unknown [id number] 1985 Unknown [id number] 1985 Unknown [id number] [id number] 1985 Unknown [id number] 1985 Unknown [id number] [id number] 1959 Self-pay 1959 Unknown [id number] Social History Date Type Detail Facility Start: 06-02-2023 Tobacco smoking stat [facility] Never smoked tobacco [facility] Start: 06-02-2023 Tobacco use and exposure Smoke less tobacco non-user [facility] Start: 06-04-2024 End: 09-11-2024 Alcoholic beverage intake Current drinker of alcohol (finding) [facility] Start: 05-30-2023 End: 06-02-2023 [facility] of Social function [facility] Start: 05-30-2023 End: 06-02-2023 Humiliation, Afraid, Rape, and Kick questionnaire [HARK] [facility] Within the last year , have you been afraid of your partner or ex-partner? No [facility] Do you belong to any clubs or organizations such as catholic groups, unions, fraternal or athletic groups, or school groups? Yes [facility] Attends Club or Organization Meetings Not on file [facility] Are you now , , , , never or living with a partner? [facility] How often to you hav e a drink containing alcohol? Monthly or less [facility] How many standard dr inks containing alcohol do you have on a typical day? 3 or 4 [facility] How often do you hav e 6 or more drinks on 1 occasion? Never [facility] Do you feel stress - tense, restless, nervous, or anxious, or unable to sleep at night because your mind is troubled all the time - these days [OSQ] To some extent [facility] (I/We) worried wheth er (my/our) food would run out before (I/we) got money to buy more. Never true [facility] Start: 09-30-2023 Alcohol Comment Socialllmary, Jessica feine intake: 1-2 cups per day coffee [facility] Start: 1985 Sex assigned at Female [facility] Start: 05-13-2023 Gender identity Identifies as female gender (finding) [facility] Start: 05-13-2023 Sexual orientation Heterosexual (fin ding) [facility] History of Present illness Narrative 09-11-2024 Demarco Fernandez CNM - 09/11/2024 3:00 PM EST Note Date & Type Note Facility 09-11-2024 History of Presen t illness Narrative YEARLY HPI: This is a established patient. Chief Complaint Patient presents with Gynecologic Exam Here for annual exam. 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 Dia WISDOM TOOTH EXTRACTION Family History Problem Relation Name Age of Onset Meniere's disease Mother Thyroid disease Sister Heart disease Maternal Grandfather Hypertension Maternal Grandfather Ovarian cancer Paternal Grandmother Hypertension Paternal Grandfather Heart disease Paternal Grandfather Diabetes Paternal Grandfather Allergies: No Known Allergies Medications: Current Outpatient Medications on File Prior to Visit Medication Sig Dispense Refill ketoconazole (NIZOral) 2 % shampoo APPLY TO AFFECTED AREAS ON SHOULDERS. LEAVE ON FOR 1-2 MINUTES THEN RINSE OFF Multiple Vitamins-Minerals (MULTIVITAMIN ADULT, MINERALS, PO) Take by mouth. progesterone 100 MG capsule Take 100 mg by mouth in the morning. Pt unsure of dose. spironolactone (Aldactone) 100 MG tablet Take 1 tablet (100 mg) by mouth in the morning. 90 tablet 0 Testosterone 20 % cream LOW DOSE tretinoin (Retin-A) 0.05 % cream APPLY TO AFFECTED AREA DAILY AT BEDTIME TOLERATED No current facility-administered medications on file prior to visit. ROS: Review of Systems All other systems reviewed and are negative. There were no vitals filed for this visit. Physical exam: Physical Exam Vitals reviewed. Constitutional: Appearance: Normal appearance. HENT: Head: Normocephalic. Right Ear: Tympanic membrane normal. Left Ear: Tympanic membrane normal. Mouth/Throat: Mouth: Mucous membranes are moist. Eyes: Pupils: Pupils are equal, round, and reactive to light. Cardiovascular: Rate and Rhythm: Normal rate and regular rhythm. Pulses: Normal pulses. Heart sounds: Normal heart sounds. Pulmonary: Effort: Pulmonary effort is normal. Breath sounds: Normal breath sounds. Chest: Breasts: Right: Normal. Left: Normal. Abdominal: General: Abdomen is flat. Bowel sounds are normal. Palpations: Abdomen is soft. Tenderness: There is no abdominal tenderness. Genitourinary: General: Normal vulva. Exam position: Lithotomy position. Vagina: Normal. No tenderness. Cervix: Normal. No cervical motion tenderness. Uterus: Normal. Adnexa: Right adnexa normal and left adnexa normal. Musculoskeletal: General: Normal range of motion. Cervical back: Normal range of motion and neck supple. Skin: General: Skin is warm and dry. Neurological: General: No focal deficit present. Mental Status: She is alert and oriented to person, place, and time. Psychiatric: Mood and Affect: Mood normal. Assessment and Plan: 1. Annual exam 2. SBE discussed: Yes 3. Diet and exercise discussed: Yes 4. Wt control discussed: No 5. Safe sex discussed: No Krystina was seen today for gynecologic exam. Diagnoses and all orders for this visit: Normal gynecologic examination No follow-ups on file. There are no Patient Instructions on file for this visit. Ericka Del Angel MA, 09/11/2024 3:03 PM documented in this encounter [facility] Note 09-04-2024 Telephone Encounter - Gabriella Carlisle - 09/04/2024 2:42 PM EST Note Date & Type Note Facility 09-04-2024 Miscellaneous Notes Formattin g of this note might be different from the original. Patient left a voicemail wanting test results from last week. Please call [phone]. Thank you. documented in this encounter [facility] Telephone encounter Note 09-04-2024 Telephone Encounter - Gabriella Carlisle - 09/04/2024 2:42 PM EST Note Date & Type Note Facility 09-04-2024 Telephone encount er Note Patient left a voicemail wanting test results from last week. Please call [phone]. Thank you. [facility] History of Present illness Narrative 08-29-2024 Renee Ramos NP - 08/29/2024 11:30 AM EST Note Date & Type Note Facility 08-29-2024 History of Presen t illness Narrative Images from the original note were not included. Krystina Bledsoe is a 38 y.o. female presents with chief complaint of Anal Itching (Noticed 3 nights ago, starts at night when she sits down to relax for the night. 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 Tried cortisone the past 2 nights and helped a little. Has a weird sensation in abdomen. Last week had looser stool but back to normal) HPI: HPI As above. Tuesday night she was laying down after 9 and felt an uncomfortable itch to the rectal area. She feels like it is crawling sensation with these episodes. She is on testosterone cream as well and on Tuesday she placed cream on her periarea as prescribed. It is the 3rd time in that area and she has never had this before. SUBJECTIVE: MEDICATIONS: Current Outpatient Medications Medication Instructions ketoconazole (NIZOral) 2 % shampoo APPLY TO AFFECTED AREAS ON SHOULDERS. LEAVE ON FOR 1-2 MINUTES THEN RINSE OFF Multiple Vitamins-Minerals (MULTIVITAMIN ADULT, MINERALS, PO) Take by mouth. progesterone 100 mg, Daily spironolactone (ALDACTONE) 100 mg, Oral, Every morning Testosterone 20 % cream LOW DOSE tretinoin (Retin-A) 0.05 % cream APPLY TO AFFECTED AREA DAILY AT BEDTIME TOLERATED ALLERGIES: No Known Allergies History: Past Medical History: Diagnosis Date Acne, unspecified acne type Melasma Night sweats Past Surgical History: Procedure Laterality Date BREAST SURGERY 03/2021 implants SECTION, LOW TRANSVERSE x2 (2010,2013) COLONOSCOPY 09/2017 WNL, Dr Nesbitt DILATION AND CURETTAGE OF UTERUS 10/2012 Dr Roe SALPINGECTOMY Bilateral 09/16/2023 Dr. 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[employer] Tobacco Use Smoking status: Never Smokeless tobacco: Never Vaping Use Vaping status: Never Used Substance and Sexual Activity Alcohol use: Yes Comment: Sociallly, Caffeine intake: 1-2 cups per day coffee Drug use: Never Sexual activity: Yes Partners: Male control/protection: Condom Male Comment: Periods: irregular periods Other Topics Concern Not on file Social History Narrative Housing: owns a home Social Drivers of Health Financial Resource Strain: Low Risk (05/30/2023) Overall Financial Resource Strain (CARDIA) Difficulty of Paying Living Expenses: Not hard at all Food Insecurity: No Food Insecurity (05/30/2023) Hunger Vital Sign Worried About Running Out of Food in the Last Year: Never true Ran Out of Food in the Last Year: Never true Transportation Needs: No Transportation Needs (05/30/2023) PRAPARE - Transportation Lack of Transportation (Medical): No Lack of Transportation (Non-Medical): No Physical Activity: Unknown (05/30/2023) Exercise Vital Sign Days of Exercise per Week: Not on file Minutes of Exercise per Session: 30 min Stress: Stress Concern Present (05/30/2023) [place] [employer] - Occupational Stress Questionnaire Feeling of Stress : To some extent Social Connections: Socially Integrated (05/30/2023) Social Connection and Isolation Panel [NHANES] Frequency of Communication with Friends and Family: Twice a week Frequency of Social Gatherings with Friends and Family: Once a week Attends Orthodoxy Services: 1 to 4 times per year Active Member of Clubs or Organizations: Yes Attends Club or Organization Meetings: Not on file Marital Status: Intimate Partner Violence: Not At Risk (05/30/2023) Humiliation, Afraid, Rape, and Kick questionnaire Fear of Current or Ex-Partner: No Emotionally Abused: No Physically Abused: No Sexually Abused: No Housing Stability: Low Risk (05/30/2023) Housing Stability Vital Sign Unable to Pay for Housing in the Last Year: No Number of Places Lived in the Last Year: 1 Unstable Housing in the Last Year: No I have reviewed and reconciled the history and medication list with the patient today. REVIEW OF SYMPTOMS: Review of Systems Constitutional: Negative. Negative for fatigue and fever. HENT: Negative. Negative for congestion, ear discharge, ear pain, postnasal drip, rhinorrhea, sinus pressure, sinus pain, sneezing, sore throat and trouble swallowing. Eyes: Negative. Respiratory: Negative for cough, shortness of breath and wheezing. Cardiovascular: Negative. Negative for chest pain, palpitations and leg swelling. Gastrointestinal: Negative. Negative for abdominal distention, abdominal pain, blood in stool, diarrhea and nausea. Genitourinary: Negative. Musculoskeletal: Negative. Skin: Negative. Negative for rash. Neurological: Negative. Psychiatric/Behavioral: Negative. OBJECTIVE: 07/04/2023 4:56 PM 08/04/2023 8:53 AM 08/23/2023 9:37 AM 10/03/2023 8:47 AM 11/03/2023 11:34 AM 06/04/2024 1:13 PM 08/29/2024 11:35 AM Vitals BMI 22.96 kg/m2 22.62 kg/m2 22.78 kg/m2 22.81 kg/m2 23.17 kg/m2 23.87 kg/m2 23.99 kg/m2 BSA (m2) 1.81 m2 1.8 m2 1.8 m2 1.81 m2 1.82 m2 1.85 m2 1.85 m2 Systolic 114 118 114 118 116 100 116 Diastolic 72 80 68 70 70 64 74 Heart Rate 72 72 68 Height (in) 5' 8 5' 8 5' 8 Weight (lb) 151 148.8 149.8 150 152.4 157 157.8 Visit Report Report Report Report Report Report Report Physical Exam Vitals and nursing note reviewed. Constitutional: General: She is not in acute distress. Appearance: Normal appearance. She is normal weight. She is not ill-appearing, toxic-appearing or diaphoretic. HENT: Head: Normocephalic and atraumatic. Mouth/Throat: Mouth: Mucous membranes are moist. Cardiovascular: Rate and Rhythm: Normal rate and regular rhythm. Pulses: Normal pulses. Heart sounds: Normal heart sounds. No murmur heard. No friction rub. No gallop. Pulmonary: Effort: Pulmonary effort is normal. No respiratory distress. Breath sounds: Normal breath sounds. No wheezing, rhonchi or rales. Abdominal: General: Bowel sounds are normal. Palpations: Abdomen is soft. Genitourinary: General: Normal vulva. Rectum: Normal. Musculoskeletal: General: No swelling or deformity. Normal range of motion. Cervical back: Normal range of motion and neck supple. Skin: General: Skin is warm and dry. Capillary Refill: Capillary refill takes less than 2 seconds. Neurological: General: No focal deficit present. Mental Status: She is alert and oriented to person, place, and time. Mental status is at baseline. Motor: No weakness. Gait: Gait normal. Psychiatric: Mood and Affect: Mood normal. Behavior: Behavior normal. Thought Content: Thought content normal. Judgment: Judgment normal. ASSESSMENT AND PLAN: Assessment/Plan Diagnoses and all orders for this visit: Anal itching Cool compresses, keep area dry, cortisone cream. Will get stool specims. - Stool culture; Future - Ova and parasites with giardia antigen; Future documented in this encounter [facility] History of Present illness Narrative 06-04-2024 Renee Ramos NP - 06/04/2024 1:30 PM EDT Note Date & Type Note Facility 06-04-2024 History of Presen t illness Narrative Images from the original note were not included. Krystina Bledsoe is a 38 y.o. female presents with chief complaint of Annual Exam (Pt is going to get her labs done tomorrow morning. Pt is interested in being tested for celiac disease. Pt doesn't eat much gluten but if she does she gets abdominal pain and cramping. ) HPI: HPI As above. She is interested in knowing her labs. She is doing well. She sees the dentist every 6 months and the eye doctor yearly. She sees Alysia Fernandez for her female health needs. She has no medical concerns. She is seeing a hormone specialist every 6 months and she is on progesterone. She is having regular cycles now and no hair loss. SUBJECTIVE: MEDICATIONS: Current Outpatient Medications Medication Instructions Multiple Vitamins-Minerals (MULTIVITAMIN ADULT, MINERALS, PO) Oral progesterone 100 mg, Oral, Daily, Pt unsure of dose spironolactone (ALDACTONE) 100 mg, Oral, Every morning ALLERGIES: No Known Allergies History: Past Medical History: Diagnosis Date Acne, unspecified acne type Melasma Night sweats Past Surgical History: Procedure Laterality Date BREAST SURGERY 03/2021 implants SECTION, LOW TRANSVERSE x2 (2010,2013) COLONOSCOPY 09/2017 WNL, Dr Nesbitt DILATION AND CURETTAGE OF UTERUS 10/2012 Dr Roe SALPINGECTOMY Bilateral 09/16/2023 Dr. South POLLARD TOOTH EXTRACTION Family History Problem Relation Name Age of Onset Meniere's disease Mother Thyroid disease Sister Heart disease Maternal Grandfather Hypertension Maternal Grandfather Ovarian cancer Paternal Grandmother Hypertension Paternal Grandfather Heart disease Paternal Grandfather Diabetes Paternal Grandfather Social History Socioeconomic History Marital status: Spouse name: Not on file Number of children: 2 Years of education: Not on file Highest education level: Not on file Occupational History Occupation: [employer] Tobacco Use Smoking status: Never Smokeless tobacco: Never Vaping Use Vaping status: Never Used Substance and Sexual Activity Alcohol use: Yes Comment: Sociallly, Caffeine intake: 1-2 cups per day coffee Drug use: Never Sexual activity: Yes Partners: Male control/protection: Condom Male Comment: Periods: irregular periods Other Topics Concern Not on file Social History Narrative Housing: owns a home Social Determinants of Health Financial Resource Strain: Low Risk (05/30/2023) Overall Financial Resource Strain (CARDIA) Difficulty of Paying Living Expenses: Not hard at all Food Insecurity: No Food Insecurity (05/30/2023) Hunger Vital Sign Worried About Running Out of Food in the Last Year: Never true Ran Out of Food in the Last Year: Never true Transportation Needs: No Transportation Needs (05/30/2023) PRAPARE - Transportation Lack of Transportation (Medical): No Lack of Transportation (Non-Medical): No Physical Activity: Unknown (05/30/2023) Exercise Vital Sign Days of Exercise per Week: Not on file Minutes of Exercise per Session: 30 min Stress: Stress Concern Present (05/30/2023) [place] [employer] - Occupational Stress Questionnaire Feeling of Stress : To some extent Social Connections: Socially Integrated (05/30/2023) Social Connection and Isolation Panel [NHANES] Frequency of Communication with Friends and Family: Twice a week Frequency of Social Gatherings with Friends and Family: Once a week Attends Orthodoxy Services: 1 to 4 times per year Active Member of Clubs or Organizations: Yes Attends Club or Organization Meetings: Not on file Marital Status: Intimate Partner Violence: Not At Risk (05/30/2023) Humiliation, Afraid, Rape, and Kick questionnaire Fear of Current or Ex-Partner: No Emotionally Abused: No Physically Abused: No Sexually Abused: No Housing Stability: Low Risk (05/30/2023) Housing Stability Vital Sign Unable to Pay for Housing in the Last Year: No Number of Places Lived in the Last Year: 1 Unstable Housing in the Last Year: No REVIEW OF SYMPTOMS: Review of Systems Constitutional: Negative. Negative for fatigue and fever. HENT: Negative. Negative for congestion, ear discharge, ear pain, postnasal drip, rhinorrhea, sinus pressure, sinus pain, sneezing, sore throat and trouble swallowing. Eyes: Negative. Respiratory: Negative for cough, shortness of breath and wheezing. Cardiovascular: Negative. Negative for chest pain, palpitations and leg swelling. Gastrointestinal: Negative. Negative for abdominal distention, abdominal pain, blood in stool, diarrhea and nausea. Genitourinary: Negative. Musculoskeletal: Negative. Skin: Negative. Negative for rash. Neurological: Negative. Psychiatric/Behavioral: Negative. OBJECTIVE: 06/02/2023 9:13 AM 07/04/2023 4:56 PM 08/04/2023 8:53 AM 08/23/2023 9:37 AM 10/03/2023 8:47 AM 11/03/2023 11:34 AM 06/04/2024 1:13 PM Vitals BMI 23.49 kg/m2 22.96 kg/m2 22.62 kg/m2 22.78 kg/m2 22.81 kg/m2 23.17 kg/m2 23.87 kg/m2 BSA (m2) 1.79 m2 1.81 m2 1.8 m2 1.8 m2 1.81 m2 1.82 m2 1.85 m2 Systolic 100 114 118 114 118 116 100 Diastolic 70 72 80 68 70 70 64 Heart Rate 72 72 72 Height (in) 5' 8 5' 8 5' 8 Weight (lb) 150 151 148.8 149.8 150 152.4 157 Visit Report Report Report Report Report Report Report Physical Exam Vitals and nursing note reviewed. Constitutional: General: She is not in acute distress. Appearance: Normal appearance. She is normal weight. She is not ill-appearing, toxic-appearing or diaphoretic. HENT: Head: Normocephalic and atraumatic. Right Ear: Tympanic membrane, ear canal and external ear normal. Left Ear: Tympanic membrane, ear canal and external ear normal. Nose: Nose normal. No congestion or rhinorrhea. Mouth/Throat: Mouth: Mucous membranes are moist. Pharynx: Oropharynx is clear. No oropharyngeal exudate or posterior oropharyngeal erythema. Eyes: Extraocular Movements: Extraocular movements intact. Conjunctiva/sclera: Conjunctivae normal. Pupils: Pupils are equal, round, and reactive to light. Neck: Vascular: No carotid bruit. Cardiovascular: Rate and Rhythm: Normal rate and regular rhythm. Pulses: Normal pulses. Heart sounds: Normal heart sounds. No murmur heard. No friction rub. No gallop. Pulmonary: Effort: Pulmonary effort is normal. No respiratory distress. Breath sounds: Normal breath sounds. No wheezing, rhonchi or rales. Chest: Chest wall: No tenderness. Abdominal: General: Bowel sounds are normal. There is no distension. Palpations: Abdomen is soft. Tenderness: There is no guarding. Musculoskeletal: General: No swelling or deformity. Normal range of motion. Cervical back: Normal range of motion and neck supple. Lymphadenopathy: Cervical: No cervical adenopathy. Skin: General: Skin is warm and dry. Capillary Refill: Capillary refill takes less than 2 seconds. Findings: No bruising, lesion or rash. Neurological: General: No focal deficit present. Mental Status: She is alert and oriented to person, place, and time. Mental status is at baseline. Motor: No weakness. Gait: Gait normal. Psychiatric: Mood and Affect: Mood normal. Behavior: Behavior normal. Thought Content: Thought content normal. Judgment: Judgment normal. ASSESSMENT AND PLAN: Assessment/Plan Diagnoses and all orders for this visit: Wellness examination Reviewed family history, risk factors for disease and discussed importance of routine exercise and healthy diet. Recommended routine dental/eye exams and discussed vaccines. Patient will update flu vaccine today and plans to schedule covid booster in near future. Labs ordered for today. Discussed routine screenings and patient is UTD. All questions answered. Discussed her medications and she is paying out of pocket to see a specialist who is managing them and her symptoms have improved including her menstrual cycle. Follow up for next annual in one year, labs this June. documented in this encounter [facility] Evaluation note Note Date & Type Note Facility Evaluation note Diagnosis Other acne documented in this encounter [facility] Evaluation note Note Date & Type Note Facility Evaluation note Diagnosis Anal itching- Primary Pruritus ani documented in this encounter [facility] Evaluation note Note Date & Type Note Facility Evaluation note Diagnosis Wellness examination- Primary Gluten intolerance Celiac disease documented in this encounter [facility] Evaluation note Note Date & Type Note Facility Evaluation note Diagnosis Normal gynecologic examination Screening for cervical cancer Screening for malignant neoplasm of the cervix documented in this encounter [facility] Summary Purpose Family History No Family History Records FoundNo Family History Records FoundNo Family History Records Found Advance Directives No Advanced Directives Records FoundNo Advanced Directives Records FoundNo Advanced Directives Records Found Additional Source Comments INFORMATION SOURCE (unrecogn ized section and content) DATE CREATED AUTHOR 02/11/2021 [facility] DATE CREATED AUTHOR AUTHOR'S ORGANIZ ATION 09/23/2023 [facility] DATE CREATED AUTHOR AUTHOR'S ORGANIZ ATION 09/16/2024 [facility] d[facility] Specialists [facility] Care Teams (unrecognized sec tion and content) [employer] Relationship Specialty Start Date End Date Lianna Carlisle MD [address] [place] [facility] [place] [address] PCP - General Family Medicine 02/22/23 Lianna Carlisle MD [address] [place] [address] PCP - Medical [employer] 06/17/19 10/16/99 [employer] Relationship Specialty Start Date End Date Lianna Carlisle MD [address] [place] [address] PCP - General Family Medicine 02/22/23 Lianna Carlisle MD [address] [place] [address] PCP - Medical [employer] 06/17/19 10/16/99 [employer] Relationship Specialty Start Date End Date Lianna Carlisle MD [address] [place] [address] PCP - General Family Medicine 02/22/23 Lianna Carlisle MD [address] [place] [address] PCP - Medical [employer] 06/17/19 10/16/99 [employer] Relationship Specialty Start Date End Date Lianna Carlisle MD [address] [place] [address] PCP - General Family Medicine 02/22/23 Lianna Carlisle MD [address] [place] [address] PCP - Medical [employer] 06/17/19 10/16/99 [employer] Relationship Specialty Start Date End Date Lianna Carlisle MD [address] [place] [address] PCP - General Family Medicine 02/22/23 Lianna Carlisle MD [address] [place] [address] PCP - Medical [employer] 06/17/19 10/16/99 [employer] Relationship Specialty Start Date End Date Lianna Carlisle MD [address] [place] [address] PCP - General Family Medicine 02/22/23 Lianna Carlisle MD [address] [place] [address] PCP - Medical [employer] 06/17/19 10/16/99 [employer] Relationship Specialty Start Date End Date Lianna Carlisle MD [address] [place] [address] PCP - General Family Medicine 02/22/23 Lianna Carlisle MD [address] [place] [address] PCP - Medical [employer] 06/17/19 10/16/99 [employer] Relationship Specialty Start Date End Date Lianna Carlisle MD [address] [place] [address] PCP - General Family Medicine 02/22/23 Lianna Carlisle MD [address] [place] [address] PCP - Medical [employer] 06/17/19 10/16/99 Reason for Visit (unrecogniz ed section and content) Reason Onset Date Comments Med Refill 08/13/2024 Reason Comments Anal Itching Noticed 3 nights ago , starts at night when she sits down to relax for the night. 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 Tried cortisone the past 2 nights and helped a little. Has a weird sensation in abdomen. Last week had looser stool but back to normal Reason Comments Annual Exam Pt is going to get h er labs done tomorrow morning. Pt is interested in being tested for celiac disease. Pt doesn't eat much gluten but if she does she gets abdominal pain and cramping. Reason Comments Gynecologic Exam FOR RECORDS PERTAINING TO PATIENTS WHO ARE [...] BE BASED ON THE PRIMARY CLINICAL RECORDS. [employer] provides no warranty or guarantee of the accuracy or completeness of information in this document.
[2024-11-10 08:31] LABS: Basophils Percent Auto 0.6 % (0.2-2.0); Eosinophils Percent Auto 0.4 % (0.9-7.0); Hematocrit 41.4 % (36.0-48.0); Hemoglobin 13.7 g/dL (12.0-16.0); Immature Granulocytes Abs Auto 0.02 10^3/uL (0.00-0.03); Immature Granulocytes Pct Auto 0.4 % (0.0-0.5); Lymphocytes Absolute Auto 1.4 10^3/uL (1.2-3.8); Lymphocytes Percent Auto 25.3 % (20.5-60.0); Mean Corpuscular HGB Conc 33.1 g/dL (29.9-35.2); Mean Corpuscular Hemoglobin 30.3 pg (26.7-34.0); Mean Corpuscular Volume 91.6 fL (81.0-99.0); Mean Platelet Volume 9.5 fL (9.5-13.5); Monocytes Absolute Auto 0.4 10^3/uL (0.3-0.8); Monocytes Percent Auto 6.4 % (1.7-12.0); Neutrophils Absolute Auto 3.7 10^3/uL (1.4-6.5); Neutrophils Percent Auto 66.9 % (43.0-75.0); Platelet Count 174 10^3/uL (150-450); Red Blood Count 4.52 10^6/uL (4.20-5.40); Red Cell Distribution Width 11.4 % (11.0-15.0); White Blood Count 5.5 10^3/uL (4.0-11.0)
[2024-11-11 08:07] LABS: Progesterone 1.1 ng/mL (.)
[2024-11-11 16:08] LABS: Cortisol - AM 18.1 ug/dL (6.2-19.4)
[2024-11-14 14:10] LABS: Free Testosterone(Direct) 2.2 pg/mL (0.0-4.2); Testosterone 150 ng/dL (8-60)
== END 2024-11-10 08:18 | disposition home or self-care (01) ==
LOC: LAB 08:19
PROVIDERS: PCP Family Medicine; Visit Provider Emergency Medicine
DX: N95.9 Unspecified menopausal and perimenopausal disorder (principal)
CPT/HCPCS: 36415; 82533; 82670; 84144; 84402; 84403; 85025

== ENCOUNTER 2025-03-13 08:02 | Outpatient (OUT) | payer OTHER, SELFPAY ==
--- OUTSIDE RECORDS SUMMARY | 2025-03-13 08:05 | XMS_ITS | CCD ---
Author Organization [facility] Care Team Providers Care Mechanical Service Representative Name Role Phone DR LIANNA CARLISLE Admitting Unavailable ORESTES, DR LIANNA Woodward Attending Unavailable EFFIE TRIMBLE Consulting Unavailable EFFIE TRIMBLE Attending Unavailable ORESTES, DR LIANNA Woodward Primary Care Unavailable EFFIE TRIMBLE Admitting Unavailable NHAN DIA Attending Unavailable Lianna Carlisle MD Primary Care Provider Lianna Carlisle MD Unavailable Lianna Carlisle MD Primary Care Provider Lianna Carlisle MD Unavailable [phone] ANIVAL BLEDSOE Attending Unavailable PUMP, RENEE Attending Unavailable PUMP, RENEE Attending Unavailable DEMARCO FERNANDEZ Attending Unavailable Medications Current Medications Medication Drug Class(es) Dates Sig (Normalized) Sig (Original) azithromycin 250 mg oral tablet (2 sources) Macrolide Antimicrobial Start: 12-10-2024 End: 12-15-2024 take 2 tablets by mouth once daily, then take 1 tablet by mouth once daily azithromycin (Zithromax) 250 MG tablet Indications: Subacute cough Take 2 tablets (500 mg) by mouth Daily for 1 day, THEN 1 tablet (250 mg) Daily for 4 days. 6 tablet 12/10/2024 12/15/2024 Active benzonatate 100 mg oral capsule (2 sources) Non-narcotic Antitussive Start: 12-10-2024 End: 12-20-2024 take 1 capsule by mouth three times daily as needed for cough benzonatate (Tessalon Perles) 100 MG capsule Indications: Subacute cough Take 1 capsule (100 mg) by mouth 3 (three) times a day as needed for cough for up to 10 days Do not crush or chew. 30 capsule 12/10/2024 12/20/2024 Active ketoconazole 20 mg/ml medicated shampoo (9 sources) Azole Antifungal Start: 08-02-2024 ketoconazole (NIZOral) 2 % shampoo APPLY TO AFFECTED AREAS ON SHOULDERS. LEAVE ON FOR 1-2 MINUTES THEN RINSE OFF 08/02/2024 Active Multiple Vitamins-Minerals (MULTIVITAMIN ADULT, MINERALS, PO) (14 sources) Multiple Vitamins-Minerals (MULTIVITAMIN ADULT, MINERALS, PO) Take by mouth. Active progesterone 100 mg oral capsule (14 sources) Progesterone take 1 capsule by mouth in the morning progesterone 100 MG capsule Take 100 mg by mouth in the morning. Pt unsure of dose. Active spironolactone 100 mg oral tablet (15 sources) Aldosterone Antagonist Start: 08-29-2024 take 1 [...] 90 tablet 03/28/2024 08/13/2024 Discontinued (Reorder) Testosterone (9 sources) Androgen Testosterone 20 % cream LOW DOSE Active tretinoin 0.5 mg/ml topical cream (9 sources) Retinoid Start: 08-03-2024 tretinoin (Ret in-A) 0.05 % cream APPLY TO AFFECTED AREA DAILY AT BEDTIME TOLERATED 08/03/2024 Active Problems Active Problems Problem Classification Problem Date Documented Da te Episodic/Chronic Abdominal pain (2 sources) Generalized abdominal pain; Translations: [Generalized abdominal pain] 12-10-2024 Episodic Allergic reactions (2 sources) Non-celiac gluten sensitivity; 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 Malaise and fatigue (2 sources) Fatigue; Translations: [Other fatigue] 12-10-2024 Episodic Other endocrine disorders (4 sources) Polycystic ovarian syndrome; Translations: [POLYCYSTIC OVARIAN SYNDROME] Onset: 11-22-2020 Chronic Other inflammatory condition of skin (2 sources) Pruritus ani; Translations: [Pruritus ani] 08-29-2024 Episodic Other lower respiratory disease (2 sources) Cough; Translations: [Subacute cough] 12-10-2024 Episodic Other screening for suspected conditions (not mental disorders or infectious disease) (2 sources) Cancer cervix screening status; Translations: [Encounter for screening for malignant neoplasm of cervix] 09-11-2024 Episodic Other skin disorders (1 source) Acne; Translations: [Other acne] 08-13-2024 Episodic Past or Other Problems Problem Classification Problem Date Documented Da te Episodic/Chronic Mood disorders (14 sources) Mood disorders Onset: 06-02-2023 06-02-2023 Results Test Name Value Interpretation Reference Range Facility Laboratory - Cytologyon Heating And Cooling Technician Cyto stain Nom (Cvx/Vag) [ID] [facility] Comment on above: SPS, CT(ASCP) CT Scr eening Location: [facility] [address] LXT, CT(ASCP) CT scr eening location: [facility] [address]. Cytology study comment Cyto stain Vamshi (Cvx/Vag) [Interp] [facility] Comment on above: This Pap test has be en evaluated with computer assisted technology. Microscopic observation Cyto stain Nom (Cvx) [facility] Comment on above: Cytology Results: Ne gative for intraepithelial lesion or malignancy. Specimen source Cyto stain Nom (Cvx/Vag) [facility] are Comment on above: None given Statement of adequacy Cyto stain (Cvx/Vag) [Interp] [facility] Comment on above: Satisfactory for naveen luation. Endocervical/transformation zone component present. Laboratory - Microbiology an d Antimicrobial susceptibilityon 09-18-2024 HPV 16+18+31+33+35+39+45+ 51+52+56+58+59+66+68 DNA TAMMY+probe Ql (Cvx) Not detected NOT DETECTED [facility] Comment on above: Not Detected High Risk HPV types (16,18,31,33,35,39,45,51,52, 56,58,59,66,68) were not detected. Other HPV types which cause anogenital lesions may be present. The significance of the other types of HPV in malignant processes has not been established. Methodology: Real Time PCR No Panel Informationon 12-03 -2024 (ALWAYS MESSAGE) [facility] Comment on above: EXPLANATORY NOTE: The Pap [...] historic and current clinical information. Clinical information [facility] Comment on above: None given Date of previous biopsy [facility] Comment on above: NONE GIVEN Date of previous PAP smear [facility] Comment on above: NONE GIVEN Last menstrual period start date [facility] Comment on above: NONE GIVEN Performing Organization Information Site ID: AMD Name: [facility] [place] Address: [address] [place] [address] Dr Wright[place], [place] Director: Jose Hodgson M.D.,PhD Site ID: [id number] Name: [facility] Address: [address] [place] [id number] Director: Boo Soni MD [facility] ALL CBC WITH AUTO DIFFon BASOPHILS ABSOLUTE AUTO 0.0 [facility] Basophils/100 WBC (Bld) 0.2 % 0.2 - 2.0 % [facility] Eosinophils/100 WBC (Bld) 3.4 % 0.9 - 7.0 % [facility] Erythrocyte distribution width (RBC) [Ratio] 11.5 % 11.0 - 15.0 % [facility] Hematocrit (Bld) [Volume fraction] 40.7 % 36.0 - 48.0 % [facility] Hemoglobin (Bld) [Mass/Vol] 13.5 g/dL 12.0 - 16.0 g/dL [facility] IMMATURE GRANULOCYTES ABS AUTO 0.00 [facility] Immature granulocytes/100 WBC (Bld) 0.0 % 0.0 - 0.5 % [facility] Healthcare LYMPHOCYTES ABSOLUTE AUTO 1.5 [facility] Lymphocytes/100 WBC (Bld) 36.0 % 20.5 - 60.0 % [facility] MCH (RBC) [Entitic mass] 30.5 pg 26.7 - 34.0 pg [facility] MCHC (RBC) [Mass/Vol] 33.2 g/dL 29.9 - 35.2 g/dL [facility] MCV (RBC) [Entitic vol] 92.1 fL 81.0 - 99.0 fL [facility] MONOCYTES ABSOLUTE AUTO 0.3 [facility] Monocytes/100 WBC (Bld) 7.2 % 1.7 - 12.0 % [facility] NEUTROPHILS ABSOLUTE AUTO 2.2 [facility] Neutrophils/100 WBC (Bld) 53.2 % 43.0 - 75.0 % [facility] Platelet mean volume (Bld) [Entitic vol] 10.0 fL 9.5 - 13.5 fL [facility] EO # 0.1 [facility] PLT 191 [facility] RBC 4.42 [facility] WBC 4.1 [facility] SURGICAL PATH REPORTon 09-21 SURGICAL PATH REPORT [facility] Department of Pathology [id number] [place] [phone] Name: KRYSTINA BLEDSOE : 1985 [facility] [id number] Number: Gender Female [facility] : n: Admit 38 years Attending NHAN DIA Age: Provider: Ordering NHAN DIA Provider: Consulti Surgical Pathology Report ng: ACCESSION: COLLECTED DATE/TIME: RECEIVED DATE/TIME: PATHOLOGIST: [id number] 09/16/2023 10:20 EST 09/19/2023 13:49 EST FOX ALLEN, ZACKARY GOSS Final Diagnosis Report for THE [place], [place] BILATERAL FALLOPIAN TUBES, BILATERAL SALPINGECTOMY: - [...] are serially sectioned in a transverse manner. Rope Laying Machine Operator sections are submitted under the following designations: #1 - first described fallopian tube #2 - second described fallopian tube MP/slb ____ Print 09/21/2023 08:50 EST Number: Date/Time: [facility] Department of Pathology [address] [place] [phone] Name: KRYSTINA BLEDSOE : 1985 [facility] [id number] Number: [facility] : n: Admit 38 years Attending NHAN DIA Age: Provider: Ordering NHAN DIA Provider: Consulti Surgical Pathology Report ng: ACCESSION: COLLECTED DATE/TIME: RECEIVED DATE/TIME: PATHOLOGIST: [id number] 09/16/2023 10:20 EST 09/19/2023 13:49 EST ZACKARY BRAXTON MD Gross Description 09/19/2023 Microscopic Diagnosis The final diagnosis is based on a microscopic exam of telemarketing sales representative sections. Codes CPT CODE: 63411 ____ Print 09/21/2023 08:50 EST Number: Date/Time: Normal [facility] Comment on above: Performed By: #### 9 [id number] #### [facility] Laboratory Services [address] [place] [address] Oxygen System Tester: Branden Zhao MD TESTOSTERONE, FREE,DIRECT, T OTALoemily 11-26-2020 Free Testosterone(Direct) 0.6 pg/mL Normal 0.0-4.2 [facility] Comment on above: Result Comment: Perf ormed at: BN Performed By: #### T ESTFRD #### [facility] [address] [place] [address] Awa Elva Testosterone [Mass/Vol] 14 ng/dL Normal 8-48 [facility] Comment on above: Result Comment: Perf ormed at: CB Performed By: #### T ESTFRD #### [facility] [address] [place] [address] Awa Elva ZINC SERUM OR PLASMAon 11-26 Zinc, Plasma or Serum 106 ug/dL Normal 44-115 [facility] Comment on above: Result Comment: Dete ction Limit = 5 . Please note reference interval change Performed By: #### L BCLH #### [facility] [address] [place] [address] Awa Elva VIT D 1 25 DIHYDROXYon 11-25 Calcitriol(1,25 di-OH Vit D) 47.3 pg/mL Normal 19.9-79.3 [facility] Comment on above: Performed By: #### V [id number] #### [facility] [address] [place], [place] [id number] Awaroselyn Fonsecaen DHEA-SULFATEon 11-23-2020 DHEA-Sulfate 69.0 ug/dL Normal 57.3-279.2 [facility] Comment on above: Performed By: #### L BCLH #### [facility] [address] [place], [place] [id number] Awaroselyn Fonsecaen FSHon 11-23-2020 FSH 7.5 mIU/mL Normal [facility] Comment on above: Result Comment: Adul t Female: Follicular phase 3.5 - 12.5 Ovulation phase 4.7 - 21.5 Luteal phase 1.7 - 7.7 Postmenopausal 25.8 - 134.8 Performed By: #### L TIM #### [facility] [address] [place] [address] Awa Elva LUTEINIZING HORMONE (LH)on 0 11-23-2020 LH 9.8 mIU/mL Normal [facility] Comment on above: Result Comment: Adul t Female: Follicular phase 2.4 - 12.6 Ovulation phase 14.0 - 95.6 Luteal phase 1.0 - 11.4 Postmenopausal 7.7 - 58.5 Performed By: #### L SOLANGE #### [facility] [address] [place] [address] Awa Elva PROLACTINon 11-23-2020 Prolactin 9.7 ng/mL Normal 4.8-23.3 [facility] Comment on above: Performed By: #### P ROLAC #### [facility] [address] [place], [place] [id number] Awa Elva CBC AUTO DIFFon 11-22-2020 BASO # 0.0 103/ul Normal 0.0-0.1 [facility] Comment on above: Performed By: #### C BC #### [facility] [address] [place], [place] [id number] Awa Elva Basophils/100 WBC (Bld) 0.2 % Normal 0.2-2.0 [facility] Comment on above: Performed By: #### C BC #### [facility] [address] [place], [place] [id number] Awa Elva EO # 0.0 103/ul Normal 0.0-0.7 [facility] Comment on above: Performed By: #### C BC #### [facility] [address] [place], [place] [id number] Awa Elva Eosinophils/100 WBC (Bld) 1.0 % Normal 0.9-7.0 [facility] Comment on above: Performed By: #### C BC #### [facility] [address] [place] [address] Awaroselyn Stevenson Erythrocyte distribution width (RBC) [Ratio] 11.2 % Normal 11.0-15.0 [facility] Comment on above: Performed By: #### C BC #### [facility] [address] [place] [address] Awa Elva Hematocrit (Bld) [Volume fraction] 42.3 % Normal 36.0-48.0 [facility] Comment on above: Performed By: #### C BC #### [facility] [address] [place] [address] Awa Elva Hemoglobin (Bld) [Mass/Vol] 14.4 g/dL Normal 12.0-16.0 [facility] Comment on above: Performed By: #### C BC #### [facility] [address] [place] [address] Awa Elva IG # 0.01 10e3/ul Normal 0.00-0.03 [facility] Comment on above: Performed By: #### C BC #### [facility] [address] [place] [address] Awa Elva IG % 0.2 % Normal 0.0-0.5 [facility] Comment on above: Performed By: #### C BC #### [facility] [address] [place] [address] Awa Elva LYMPH # 1.6 103/ul Normal 1.2-3.8 [facility] Comment on above: Performed By: #### C BC #### [facility] [address] [place] [address] Awaroselyn Stevenson Lymphocytes/100 WBC (Bld) 39.3 % Normal 20.5-60.0 [facility] Comment on above: Performed By: #### C BC #### [facility] [address] [place], [place] [id number] Awaroselyn Fonsecaen MANUAL DIFF REQ NO Normal [facility] Comment on above: Performed By: #### C BC #### [facility] [address] [place] [address] Awa Elva MCH (RBC) [Entitic mass] 30.6 pg Normal 26.7-34.0 [facility] Comment on above: Performed By: #### C BC #### [facility] [address] [id number] Awa Stevenson MCHC (RBC) [Mass/Vol] 34.0 g/dL Normal 29.9-35.2 [facility] Comment on above: Performed By: #### C BC #### [facility] [address] [place], [place] [id number] Awaroselyn Stevenson MCV (RBC) [Entitic vol] 90.0 fL Normal 81.0-99.0 [facility] Comment on above: Performed By: #### C BC #### [facility] [address] [place] [address] Awa Stevenson MONO # 0.3 103/ul Normal 0.3-0.8 [facility] Comment on above: Performed By: #### C BC #### [facility] [address] [place] [address] Awa Stevenson Monocytes/100 WBC (Bld) 6.7 % Normal 1.7-12.0 [facility] Comment on above: Performed By: #### C BC #### [facility] [address] [place] [address] Awa Stevenson NEUT # 2.1 103/ul Normal 1.4-6.5 [facility] Comment on above: Performed By: #### C BC #### [facility] [address] [place] [address] Awa Stevenson Neutrophils/100 WBC (Bld) 52.6 % Normal 43.0-75.0 [facility] Comment on above: Performed By: #### C BC #### [facility] [address] [place], [place] [id number] Awaroselyn Stevenson Platelet mean volume (Bld) [Entitic vol] 9.3 fL Critically low 9.5-13.5 [facility] Comment on above: Performed By: #### C BC #### [facility] [address] [place], [place] [id number] Awa Elva PLT 207 103/ul Normal 150-450 [facility] Comment on above: Performed By: #### C BC #### [facility] [address] [id number] Awa Elva RBC 4.70 106/ul Normal 4.20-5.40 [facility] Comment on above: Performed By: #### C BC #### [facility] [address] [place] [address] Awa Elva WBC 4.0 103/ul Normal 4.0-11.0 [facility] Comment on above: Performed By: #### C BC #### [facility] [address] [place] [address] Awaroselyn Stevenson FREE T3on 11-22-2020 FREE T3 2.77 pg/mlL Normal 2.77-5.27 [facility] Comment on above: Performed By: #### F T3, TSH #### [facility] [address] [place] [address] Awaroselyn Stevenson FREE T4on 11-22-2020 Free T4 [Mass/Vol] 1.13 ng/dL Normal 0.78-2.19 [facility] Comment on above: Performed By: #### V ITB12, IRON, FT4 #### [facility] [address] [place] [address] Awaroselyn Stevenson IRONon 11-22-2020 Iron [Mass/Vol] 101.0 ug/dL Normal 37.0-170.0 [facility] Comment on above: Performed By: #### V ITB12, IRON, FT4 #### [facility] [address] [place] [address] Awaroselyn Stevenson TSHon 11-22-2020 TSH 1.202 uIU/mL Normal 0.470-4.680 [facility] Comment on above: Performed By: #### F T3, TSH #### [facility] [address] [place], [place] [phone] Awa Elva TSH RANGE SEE BELOW Normal [facility] Comment on above: Result Comment: <0.3 4 UIU/ml HYPERTHYROID 0.34-5.60 UIU/ml EUTHYROID >5.60 UIU/ml HYPOTHYROID Performed By: #### F T3, TSH #### [facility] [address] [place], [place] [address] Awa Stevenson VITAMIN B12on 11-22-2020 Cobalamin (Vitamin B12) [Mass/Vol] 324.0 pg/mL Normal 239.0-931.0 [facility] Comment on above: Performed By: #### V ITB12, IRON, FT4 #### [facility] [address] [address] Awa Stevenson Vital Signs Date Time Vital Sign Value Performing Clinician Faci lity 12-10-2024 15:02-0500 Diastolic blood pressure 80 mm[Hg] Anival Bledsoe REEL BLADE BENDER FURNACE TENDER Work Phone: [facility] 12-10-2024 15:02-0500 Heart rate 68 /min Anival Bledsoe REEL BLADE BENDER FURNACE TENDER Work Phone: [facility] 12-10-2024 15:02-0500 SaO2% (BldA) [Mass fraction] 99 % Anival Bledsoe REEL BLADE BENDER FURNACE TENDER Work Phone: [facility] 12-10-2024 15:02-0500 Systolic blood pressure 118 mm[Hg] Anival Bledsoe REEL BLADE BENDER FURNACE TENDER Work Phone: [facility] 09-11-2024 15:09-0500 Body mass index (BMI) [Ratio] 23.72 kg/m2 Demarcorochelle Galvano CNM Work Phone: [facility] 09-11-2024 15:09-0500 Body weight 70.76 kg Demarco Floro CNM Work Phone: [facility] 08-29-2024 11:35-0500 Body mass index (BMI) [Ratio] 23.99 kg/m2 Renee Pump REEL BLADE BENDER FURNACE TENDER Work Phone: [facility] 08-29-2024 11:35-0500 Body weight 71.58 kg Renee Pump REEL BLADE BENDER FURNACE TENDER Work Phone: [facility] 08-29-2024 11:35-0500 Diastolic blood pressure 74 mm[Hg] Renee Pump REEL BLADE BENDER FURNACE TENDER Work Phone: [facility] 08-29-2024 11:35-0500 Heart rate 68 /min Renee Pump REEL BLADE BENDER FURNACE TENDER Work Phone: [facility] 08-29-2024 11:35-0500 Systolic blood pressure 116 mm[Hg] Renee Pump REEL BLADE BENDER FURNACE TENDER Work Phone: [facility] 06-04-2024 13:13-0400 Body height 172.7 cm Renee Pump REEL BLADE BENDER FURNACE TENDER Work Phone: [facility] 06-04-2024 13:13-0400 Body mass index (BMI) [Ratio] 23.87 kg/m2 Renee Pump REEL BLADE BENDER FURNACE TENDER Work Phone: [facility] 06-04-2024 13:13-0400 Body weight 71.22 kg Renee Pump REEL BLADE BENDER FURNACE TENDER Work Phone: [facility] 06-04-2024 13:13-0400 Diastolic blood pressure 64 mm[Hg] Renee Pump REEL BLADE BENDER FURNACE TENDER Work Phone: [facility] 06-04-2024 13:13-0400 Heart rate 72 /min Renee Pump REEL BLADE BENDER FURNACE TENDER Work Phone: [facility] 06-04-2024 13:13-0400 Systolic blood pressure 100 mm[Hg] Renee Pump REEL BLADE BENDER FURNACE TENDER Work Phone: [facility] Healthcare Encounters Encounter Date Encounter Type Care Provider Facility Start: 12-10-2024 End: 12-10-2024 Office outpatient visit 15 minutes Anival Bledsoe REEL BLADE BENDER FURNACE TENDER Work Phone: [facility] Comment on above: Subacute cough (Prim radha Dx); Generalized abdominal pain; Other fatigue Start: 12-10-2024 End: 12-10-2024 ambulatory ANIVAL BLEDSOE Not Available Start: 12-10-2024 End: 12-10-2024 Bamboo flowsheet Anival Bledsoe REEL BLADE BENDER FURNACE TENDER Work Phone: [facility] Start: 12-10-2024 End: 12-10-2024 Bamboo flowsheet Anival Bledsoe REEL BLADE BENDER FURNACE TENDER Work Phone: [facility] Start: 09-11-2024 End: 09-11-2024 Gynecological examination normal Demarco Sandra Fernandez CNM Work Phone: [facility] Start: 09-11-2024 End: 09-11-2024 Periodic preventive med est patient 18-39 yrs Demarco Fernandez CNM Work Phone: [facility] Comment on above: Normal gynecologic e xamination; Screening for cervical cancer Start: 09-11-2024 End: 09-11-2024 ambulatory DEMARCO FERNANDEZ Not Available Start: 09-11-2024 End: 09-11-2024 Bamboo flowsheet Demarco Fernandez CNM Work Phone: [facility] Start: 09-11-2024 End: 09-11-2024 Bamboo flowsheet Demarco Fernandez CNM Work Phone: [facility] Start: 09-04-2024 End: 09-04-2024 Telephone encounter Lianna Carlisle MD Work Phone: [facility] Start: 08-29-2024 End: 08-29-2024 Bamboo flowsheet Renee Pump REEL BLADE BENDER FURNACE TENDER Work Phone: [facility] Start: 08-29-2024 End: 08-29-2024 Bamboo flowsheet Renee Pump REEL BLADE BENDER FURNACE TENDER Work Phone: [facility] Start: 08-29-2024 End: 08-29-2024 Office outpatient visit 15 minutes Renee Pump REEL BLADE BENDER FURNACE TENDER Work Phone: [facility] Comment on [...] End: 06-04-2024 Patient encounter status Renee Pump REEL BLADE BENDER FURNACE TENDER Work Phone: [facility] Work Phone: Start: 06-04-2024 End: 06-04-2024 Periodic preventive med est patient 18-39 yrs Renee Pump REEL BLADE BENDER FURNACE TENDER Work Phone: [facility] Comment on above: Wellness examination (Primary Dx); Gluten intolerance Start: 06-04-2024 End: 06-04-2024 ambulatory RENEE PUMP Not Available Start: 09-16-2023 End: 09-17-2023 ambulatory NHAN DIA Facility:[facility] Start: 01-14-[address] LIANNA Anderson lity:H1 Start: 11-22-2020 End: 11-23-2020 ambulatory EFFIE TRIMBLE Facility:[facility] Procedures Date Procedure Procedure Detail Performing Clinician Start: 09-11-2024 THINPREP IMAGING PAP AND HPV DNA REFLEX HPV 16,18 Demarco Fernandez CNM Work Phone: Start: 08-29-2024 SALMONELLA/SHIGELLA CULT, CAMPY EIA AN DSHIGA TOXIN W/RFL E.COLI 0157 CULT Renee Pump REEL BLADE BENDER FURNACE TENDER Work Phone: Start: 07-14-2024 ALL CBC WITH AUTO DIFF Generic External Data Provider Plan of Treatment Date Care Activity Detail Author Start: 05-21-2027 Screening for malign ant neoplasm of cervix [facility] Start: 06-06-2025 End: 06-06-2025 Patient encounter procedure 06/06/2025 4:00 PM EDT Office Visit [facility] [address] [place] [address] Anival Bledsoe NP [address] [place] [address] [facility] Start: 04-15-2025 Influenza vaccination Influenza Vacc ine (#1) [facility] Comment on above: Postponed from 06/17 (Supply/Drug Shortage) Start: 12-10-2024 End: 12-10-2024 Patient encounter procedure 12/10/2024 3:00 PM EST Office Visit [facility] [address] [facility] [place] [phone] Anival Bledsoe, REEL BLADE BENDER FURNACE TENDER [address] [facility], [place] [phone] Arrived [facility] Comment on above: Arrived Start: 09-11-2024 End: 09-11-2024 Patient encounter procedure 09/11/2024 3:00 PM EST Office Visit [facility] [address] [place] [phone] Demarco Fernandez, CNM [address] [facility], [place] [phone] [facility] Start: 08-29-2024 End: 08-29-2025 Ova and parasites with giardia antigen [facility] Healthcare Comment on above: Expected: 08/29/2024 (Approximate), Expires: 08/29/2025 Start: 08-29-2024 End: 08-29-2025 Stool culture Stool culture Microbiology Routine Anal itching Expected: 08/29/2024 (Approximate), Expires: 08/29/2025 [facility] Work Phone: Comment on above: Expected: 08/29/2024 (Approximate), Expires: 08/29/2025 Start: 06-17-2024 Influenza vaccination Influenza Vacc ine (#1) [facility] Start: 06-04-2024 End: 06-04-2025 CBC W Auto Differential panel - Blood CBC and differential Lab Routine Wellness examination Expected: 06/04/2024 (Approximate), Expires: 06/04/2025 [facility] Work Phone: Comment on above: Expected: 06/04/2024 (Approximate), Expires: 06/04/2025 Start: 06-04-2024 End: 06-04-2025 Comprehensive metabolic 2000 panel - Serum or Plasma Comprehensive metabolic panel Lab Routine Wellness examination Expected: 06/04/2024 (Approximate), Expires: 06/04/2025 [facility] Comment on above: Expected: 06/04/2024 (Approximate), Expires: 06/04/2025 Start: 06-04-2024 End: 06-04-2025 Lipid 1996 panel - Serum or Plasma Lipid panel Lab Routine Wellness examination Expected: 06/04/2024 (Approximate), Expires: 06/04/2025 [facility] Comment on above: Expected: 06/04/2024 (Approximate), Expires: 06/04/2025 Start: 06-04-2024 End: 06-04-2025 Tissue transglutaminase, IgA Tissue transglutaminase, IgA Lab Routine Gluten intolerance Expected: 06/04/2024 (Approximate), Expires: 06/04/2025 [facility] Comment on above: Expected: 06/04/2024 (Approximate), Expires: 06/04/2025 Start: 2006 Screening for malign ant neoplasm of cervix Pap Smear [facility] SALMONELLA/SHIGELLA CULT, CAMPY EIA AN DSHIGA TOXIN W/RFL E.COLI 0157 CULT SALMONELLA/SHIGELLA CULT, CAMPY EIA AN DSHIGA TOXIN W/RFL E.COLI 0157 CULT Lab Routine 08/29/2024 12:34 PM EST [facility] Immunizations Immunization Date Immunization Notes Care Provider Fa rocío 09-07-2021 influenza, injectabl e, quadrivalent, contains preservative Renee Pump REEL BLADE BENDER FURNACE TENDER Work Phone: [facility] 09-07-2021 influenza virus vacc ine, unspecified formulation Renee Pump REEL BLADE BENDER FURNACE TENDER Work Phone: [facility] 08-06-2020 influenza, injectabl e, quadrivalent, preservative free Renee Pump REEL BLADE BENDER FURNACE TENDER Work Phone: [facility] 08-20-2019 Influenza, injectabl e, Madin [place] Canine Kidney, preservative free, quadrivalent Renee Pump REEL BLADE BENDER FURNACE TENDER Work Phone: [facility] 08-17-2019 influenza, injectabl e, quadrivalent, preservative free Renee Pump REEL BLADE BENDER FURNACE TENDER Work Phone: [facility] 08-26-2018 influenza, injectabl e, quadrivalent, preservative free Renee Pump REEL BLADE BENDER FURNACE TENDER Work Phone: [facility] 11-29-2017 tetanus toxoid, redu rachel diphtheria toxoid, and acellular pertussis vaccine, adsorbed Renee Pump REEL BLADE BENDER FURNACE TENDER Work Phone: [facility] 08-18-2017 influenza, seasonal, injectable Renee Pump REEL BLADE BENDER FURNACE TENDER Work Phone: [facility] 07-21-2016 influenza, injectabl e, quadrivalent, preservative free Renee Pump REEL BLADE BENDER FURNACE TENDER Work Phone: [facility] 07-16-2015 influenza, seasonal, injectable Renee Pump REEL BLADE BENDER FURNACE TENDER Work Phone: [facility] 07-14-2015 influenza, injectabl e, quadrivalent, preservative free Renee Pump REEL BLADE BENDER FURNACE TENDER Work Phone: [facility] 08-21-2014 influenza, injectabl e, quadrivalent, contains preservative Renee Pump REEL BLADE BENDER FURNACE TENDER Work Phone: [facility] 10-14-2005 hepatitis B vaccine, adult dosage Renee Pump REEL BLADE BENDER FURNACE TENDER Work Phone: [facility] 05-17-2005 hepatitis B vaccine, adult dosage Renee Pump REEL BLADE BENDER FURNACE TENDER Work Phone: [facility] 04-14-2005 hepatitis B vaccine, adult dosage Renee Pump REEL BLADE BENDER FURNACE TENDER Work Phone: [facility] 04-03-1998 measles, mumps and rubella virus vaccine Renee Pump REEL BLADE BENDER FURNACE TENDER Work Phone: [facility] 04-03-1998 TD(adult) unspecifie d formulation Renee Pump REEL BLADE BENDER FURNACE TENDER Work Phone: [facility] 04-30-1991 diphtheria, tetanus toxoids and pertussis vaccine Renee Pump REEL BLADE BENDER FURNACE TENDER Work Phone: [facility] 04-30-1991 trivalent poliovirus vaccine, live, oral Renee Pump REEL BLADE BENDER FURNACE TENDER Work Phone: [facility] 02-17-1987 diphtheria, tetanus toxoids and pertussis vaccine Renee Pump REEL BLADE BENDER FURNACE TENDER Work Phone: [facility] 02-17-1987 measles, mumps and rubella virus vaccine Renee Pump REEL BLADE BENDER FURNACE TENDER Work Phone: [facility] 02-17-1987 trivalent poliovirus vaccine, live, oral Renee Pump REEL BLADE BENDER FURNACE TENDER Work Phone: [facility] 04-08-1986 diphtheria, tetanus toxoids and pertussis vaccine Renee Pump REEL BLADE BENDER FURNACE TENDER Work Phone: [facility] 02-04-1986 diphtheria, tetanus toxoids and pertussis vaccine Renee Pump REEL BLADE BENDER FURNACE TENDER Work Phone: [facility] 02-04-1986 trivalent poliovirus vaccine, live, oral Renee Pump REEL BLADE BENDER FURNACE TENDER Work Phone: [facility] 1985 diphtheria, tetanus toxoids and pertussis vaccine Renee Pump REEL BLADE BENDER FURNACE TENDER Work Phone: [facility] 1985 trivalent poliovirus vaccine, live, oral Renee Pump REEL BLADE BENDER FURNACE TENDER Work Phone: [facility] Healthcare Payers Date Payer Category Payer Private Health Insurance [employer] [id number] 2022 Unknown [employer] [id number] 2022-Present [address] [place] [address] [id number] 1985 Unknown [id number] 1985 Unknown [id number] 1985 Unknown [id number] 1985 Unknown [id number] 1985 Unknown [id number] 1985 Unknown [id number] 1985 Unknown [id number] 1959 Self-pay 1959 Unknown [id number] Social History Date Type Detail Facility Start: 06-02-2023 Tobacco smoking stat [facility] Never smoked tobacco [facility] Start: 06-02-2023 Tobacco use and exposure Smoke less tobacco non-user [facility] Start: 06-04-2024 End: 12-10-2024 Alcoholic beverage intake Current drinker of alcohol (finding) [facility] Start: 05-30-2023 End: 06-02-2023 [facility] of [facility] Start: 05-30-2023 End: 06-02-2023 Humiliation, Afraid, Rape, and Kick questionnaire [HARK] [facility] Within the last year , have you been afraid of your partner or ex-partner? No [facility] Do you belong to any clubs or organizations such as religion groups, unions, fraternal or athletic groups, or [...] true [facility] Start: 09-30-2023 Alcohol Comment Sociallly, Caf feine intake: 1-2 cups per day coffee [facility] Start: 1985 Sex assigned at Female [facility] Start: 05-13-2023 Gender identity Identifies as female gender (finding) [facility] Start: 05-13-2023 Sexual orientation Heterosexual (wil brandon) [facility] Clinical Notes 06-04-2024 to 12-10-2024 Anival Bledsoe, REEL BLADE BENDER FURNACE TENDER - 12/10/2024 3:00 PM ESTValeridriss Sandra Fernandez, CNM - 09/11/2024 3:00 PM ESTTelephone Encounter - Gabriella Orestes - 09/04/2024 2:42 PM ESTAmber Pump, REEL BLADE BENDER FURNACE TENDER - 08/29/2024 11:30 AM EST Note Date & Type Note Facility 12-10-2024 History of Presen t illness Narrative Images from the original note were not included. Krystina Bledsoe is a 39 y.o. female presents with chief complaint of Cough (Pt has had symptoms for a week. Pt states overall she is feeling better. Pt was very tired. Pt's cough is worsening. Pt stes she feels like her chest is full and she is spitting up yellow sputum. Pt has had sinus congestion. Pt states chest is starting to hurt and she has a sore throat. Pt's was sick too and was in last week and tested negative. Pt had abdominal pain over the weekend. Pt had loose stool. Pt states this is improving. ) HPI: Cough Associated symptoms include chills and shortness of breath. Pertinent negatives include no chest pain, fever, rash, sore throat or wheezing. Patient presents to the office today with acute concerns. Symptoms have been ongoing for over a week but cough is worse. was ill and in last week, tested negative for flu and covid per patient. She has been taking mucinex every 12 hours but feels it wearing off around 10 hours. Denies fever but admits body chills and fatigued. Feeling more stuffy. Having looser stools. Had abdominal discomfort over weekend but no vomiting or diarrhea. Appetite is normal. No headaches or sinus pressure. Cough is making her throat hurt. NO ear pain. Admits chest discomfort from coughing with yellow/brown phlegm. Does feeling more SOB, no wheezing. Using albuterol inhaler that has been helpful. Took cough medicine and theraflu as well. SUBJECTIVE: MEDICATIONS: Current Outpatient Medications Medication Instructions azithromycin (Zithromax) 250 MG tablet Take 2 tablets (500 mg) by mouth Daily for 1 day, THEN 1 tablet (250 mg) Daily for 4 days. benzonatate (TESSALON PERLES) 100 mg, Oral, 3 times daily PRN, Do not crush or chew. ketoconazole (NIZOral) 2 % shampoo APPLY TO [...] Dr Roe SALPINGECTOMY Bilateral 09/16/2023 Dr. 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 Tobacco Use Smoking status: Never Smokeless tobacco: [...] 30 min Stress: Stress Concern Present (05/30/2023) [place] [facility] [employer] [facility] - Occupational Stress Questionnaire Feeling of Stress : To some extent Social Connections: Socially Integrated (05/30/2023) Social Connection and Isolation Panel [NHANES] Frequency of Communication with Friends and Family: Twice a week Frequency of Social Gatherings with Friends and Family: Once a week Attends Hoahaoism Services: 1 to 4 times per year [...] REVIEW OF SYMPTOMS: Review of Systems Constitutional: Positive for chills and fatigue. Negative for activity change, appetite change and fever. HENT: Positive for congestion. Negative for sinus pain and sore throat. Respiratory: Positive for cough and shortness of breath. Negative for wheezing. Cardiovascular: Negative for chest pain and palpitations. Gastrointestinal: Positive for abdominal pain. Negative for diarrhea, nausea and vomiting. Genitourinary: Negative. Musculoskeletal: Negative. Skin: Negative for color change, rash and wound. Psychiatric/Behavioral: Negative. OBJECTIVE: 08/23/2023 9:37 AM 10/03/2023 8:47 AM 11/03/2023 11:34 AM 06/04/2024 1:13 PM 08/29/2024 11:35 AM 09/11/2024 3:09 PM 12/10/2024 3:02 PM Vitals BMI 22.78 kg/m2 22.81 kg/m2 23.17 kg/m2 23.87 kg/m2 23.99 kg/m2 23.72 kg/m2 BSA (m2) 1.8 m2 1.81 m2 1.82 m2 1.85 m2 1.85 m2 1.84 m2 Systolic 114 118 116 100 116 118 Diastolic 68 70 70 64 74 80 Heart Rate 72 72 68 68 SpO2 99 % Height (in) 5' 8 5' 8 Weight (lb) 149.8 150 152.4 157 157.8 156 Visit Report Report Report Report Report Report Report Physical Exam Vitals reviewed. Constitutional: General: She is not in acute distress. Appearance: Normal appearance. She is ill-appearing (slight). HENT: Head: Normocephalic and atraumatic. Right Ear: Tympanic membrane, ear canal and external ear normal. Left Ear: Tympanic membrane, ear canal and external ear normal. Nose: Congestion present. No rhinorrhea. Right Sinus: No maxillary sinus tenderness or frontal sinus tenderness. Left Sinus: No maxillary sinus tenderness or frontal sinus tenderness. Mouth/Throat: Mouth: Mucous membranes are moist. Pharynx: Oropharynx is clear. No oropharyngeal exudate or posterior oropharyngeal erythema. Cardiovascular: Rate and Rhythm: Normal rate and regular rhythm. Heart sounds: No murmur heard. Pulmonary: Effort: Pulmonary effort is normal. No respiratory distress. Breath sounds: Normal breath sounds. No wheezing or rhonchi. Comments: Dry cough Abdominal: General: Bowel sounds are normal. There is no distension. Palpations: Abdomen is soft. Tenderness: There is no abdominal tenderness. Musculoskeletal: Cervical back: Normal range of motion. No rigidity or tenderness. Lymphadenopathy: Cervical: No cervical adenopathy. Skin: General: Skin is warm and dry. Findings: No rash. Neurological: Mental Status: She is alert. Psychiatric: Mood and Affect: Mood normal. Behavior: Behavior normal. ASSESSMENT AND PLAN: Assessment/Plan Diagnoses and all orders for this visit: Subacute cough - azithromycin (Zithromax) 250 MG tablet; Take 2 tablets (500 mg) by mouth Daily for 1 day, THEN 1 tablet (250 mg) Daily for 4 days. - benzonatate (Tessalon Perles) 100 MG capsule; Take 1 capsule (100 mg) by mouth 3 (three) times a day as needed for cough for up to 10 days Do not crush or chew. Generalized abdominal pain Other fatigue -Advised patient to take antibiotic with food to avoid GI upset and encouraged fluids. Follow up if not improving. -Will send in lucienrezasherlyn kyler for cough suppressant. -May continue OTC medications that she is currently taking. -Follow up if not improving. Follow up if symptoms worsen or fail to improve. 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 Patient left a voicemail wanting test results from last week. Please call [phone]. Thank you. documented in this encounter [facility] 09-04-2024 Telephone encount er Note Patient left a voicemail wanting test results from last week. Please call [phone]. Thank you. [facility] 08-29-2024 History of Presen t illness Narrative [...] DILATION AND CURETTAGE OF UTERUS 10/2012 Dr Bhupinder SALPINGECTOMY Bilateral 09/16/2023 Dr. South POLLARD TOOTH [...] 30 min Stress: Stress Concern Present (05/30/2023) [place] [facility] [employer] - Occupational Stress Questionnaire Feeling of Stress : To some extent Social Connections: Socially Integrated (05/30/2023) Social Connection and Isolation Panel [NHANES] Frequency of Communication with Friends and Family: Twice a week Frequency of Social Gatherings with Friends and Family: Once a week Attends Hoahaoism Services: 1 to 4 times per year [...] giardia antigen; Future documented in this encounter [facility] 06-04-2024 History of Presen t illness Narrative [...] 30 min Stress: Stress Concern Present (05/30/2023) [place] [facility] [employer] - Occupational Stress Questionnaire Feeling of Stress : To some extent Social Connections: Socially Integrated (05/30/2023) Social Connection and Isolation Panel [NHANES] Frequency of Communication with Friends and Family: Twice a week Frequency of Social Gatherings with Friends and Family: Once a week Attends Hoahaoism Services: 1 to 4 times per year [...] labs this June. documented in this encounter [facility] Evaluation note Diagnosis Other acne [facility]* Diagnosis Anal itching- Primary Pruritus ani [facility]* Diagnosis Wellness examination- Primary Gluten intolerance Celiac disease [facility]* Diagnosis Normal gynecologic examination Screening for cervical cancer Screening for malignant neoplasm of the cervix [facility]* Diagnosis Subacute cough- Primary Generalized abdominal pain Abdominal pain, generalized Other fatigue documented in this encounter [facility] Summary Purpose Family History No Family History Records FoundNo Family History Records FoundNo Family History Records Found Advance Directives No Advanced Directives Records FoundNo Advanced Directives Records FoundNo Advanced Directives Records Found Additional Source Comments INFORMATION SOURCE (unrecogn ized section and content) DATE CREATED AUTHOR 02/11/2021 [facility] DATE CREATED AUTHOR AUTHOR'S ORGANIZ ATION 09/23/2023 [facility] DATE CREATED AUTHOR AUTHOR'S ORGANIZ ATION 12/12/2024 [facility] dical Specialists [employer] Care Teams (unrecognized sec tion and content) Mechanical Service Representative Relationship Specialty Start Date End Date Lianna Carlisle MD [address] [place] [address] PCP - General Family Medicine 02/22/23 Lianna Carlisle MD [address] [place] [address] PCP - Medical [employer] 06/17/19 10/16/99 Mechanical Service Representative Relationship Specialty Start Date End Date Lianna Carlisle MD [address] [place] [address] PCP - General Family Medicine 02/22/23 Lianna Carlisle MD [address] [place] [address] PCP - Medical [employer] 06/17/19 10/16/99 Mechanical Service Representative Relationship Specialty Start Date End Date Lianna Carlisle MD [address] [place] [address] PCP - General Family Medicine 02/22/23 Lianna Carlisle MD [address] [place] [address] PCP - Medical [employer] 06/17/19 10/16/99 Mechanical Service Representative Relationship Specialty Start Date End Date Lianna Carlisle MD [address] [place] [address] PCP - General Family Medicine 02/22/23 Lianna Carlisle MD [address] [place] [address] PCP - Medical [employer] 06/17/19 10/16/99 Mechanical Service Representative Relationship Specialty Start Date End Date Lianna Carlisle MD [address] [place] [address] PCP - General Family Medicine 02/22/23 Lianna Carlisle MD [address] [place] [address] PCP - Medical [employer] 06/17/19 10/16/99 Mechanical Service Representative Relationship Specialty Start Date End Date Lianna Carlisle MD [address] [place] [address] PCP - General Family Medicine 02/22/23 Lianna Carlisle MD [address] [place] [address] PCP - Medical [employer] 06/17/19 10/16/99 Mechanical Service Representative Relationship Specialty Start Date End Date Lianna Carlisle MD [address] [place] [address] PCP - General Family Medicine 02/22/23 Lianna Carlisle MD [address] [place] [address] PCP - Medical [employer] 06/17/19 10/16/99 Mechanical Service Representative Relationship Specialty Start Date End Date Lianna Carlisle MD [address] [place] [address] PCP - General Family Medicine 02/22/23 Lianna Carlisle MD [address] [place] [address] PCP - [employer] 06/17/19 10/16/99 Mechanical Service Representative Relationship Specialty Start Date End Date Lianna Carlisle MD [address] [place] [address] PCP - General Family Medicine 02/22/23 Lianna Carlisle MD [address] [place] [address] PCP - [employer] 06/17/19 10/16/99 Reason for Visit (unrecogniz ed [...] pain and cramping. Reason Comments Gynecologic Exam Reason Comments Cough Pt has had symptoms for a week. Pt states overall she is feeling better. Pt was very tired. Pt's cough is worsening. Pt stes she feels like her chest is full and she is spitting up yellow sputum. Pt has had sinus congestion. Pt states chest is starting to hurt and she has a sore throat. Pt's was sick too and was in last week and tested negative. Pt had abdominal pain over the weekend. Pt had loose stool. Pt states this is improving. FOR RECORDS PERTAINING TO PATIENTS WHO ARE [...] BE BASED ON THE PRIMARY CLINICAL RECORDS. [employer] provides no warranty or guarantee of the accuracy or completeness of information in this document.
[2025-03-13 08:20] LABS: Basophils Percent Auto 0.4 % (0.2-2.0); Eosinophils Absolute Auto 0.1 10^3/uL (0.0-0.7); Eosinophils Percent Auto 1.2 % (0.9-7.0); Hematocrit 42.4 % (36.0-48.0); Hemoglobin 14.2 g/dL (12.0-16.0); Immature Granulocytes Abs Auto 0.01 10^3/uL (0.00-0.03); Immature Granulocytes Pct Auto 0.2 % (0.0-0.5); Lymphocytes Absolute Auto 1.5 10^3/uL (1.2-3.8); Lymphocytes Percent Auto 28.1 % (20.5-60.0); Mean Corpuscular HGB Conc 33.5 g/dL (29.9-35.2); Mean Corpuscular Hemoglobin 30.9 pg (26.7-34.0); Mean Corpuscular Volume 92.2 fL (81.0-99.0); Mean Platelet Volume 9.7 fL (9.5-13.5); Monocytes Absolute Auto 0.4 10^3/uL (0.3-0.8); Monocytes Percent Auto 7.7 % (1.7-12.0); Neutrophils Absolute Auto 3.3 10^3/uL (1.4-6.5); Neutrophils Percent Auto 62.4 % (43.0-75.0); Platelet Count 181 10^3/uL (150-450); Red Cell Distribution Width 11.5 % (11.0-15.0); White Blood Count 5.2 10^3/uL (4.0-11.0)
[2025-03-14 08:09] LABS: Progesterone 2.9 ng/mL (.)
[2025-03-14 12:08] LABS: Cortisol - AM 15.4 ug/dL (6.2-19.4)
[2025-03-16 00:07] LABS: Free Testosterone(Direct) 2.9 pg/mL (0.0-4.2); Testosterone 216 ng/dL (8-60)
== END 2025-03-13 08:03 | disposition home or self-care (01) ==
LOC: LAB 08:02
PROVIDERS: PCP Family Medicine; Visit Provider Emergency Medicine
DX: N95.9 Unspecified menopausal and perimenopausal disorder (principal)
CPT/HCPCS: 36415; 82533; 82670; 84144; 84402; 84403; 85025

== ENCOUNTER 2025-07-30 08:40 | Outpatient (OUT) | payer OTHER, SELFPAY ==
--- OUTSIDE RECORDS SUMMARY | 2025-07-30 08:45 | XMS_ITS | Clinical Summary ---
Author Organization [employer] tem Address [facility] [id number] [address] [place] [address] Care Team Providers Care Glass Forming Crew Member Name Role Phone Lianna Calero MD Primary Care Provider Erin wallace Social History Tobacco Use Types Packs/Day Years Used Date Smoking Tobacco: Never Assessed Childcare Answer Date Recorded Childcare Unknown 03/28/2019 Employment Answer Date Recorded Employment Unknown 03/28/2019 Purpose - Life Answer Date Recorded Purpose and direction in life Unknown Comments Unknown Sex and Gender Information Value Date Recorded Sex Assigned at Not on file Legal Sex Female 11:28 AM EDT Gender Identity Not on file Sexual Orientation Not on file Plan of Treatment Not on file Medical Devices Not on file Insurance [employer] Care Teams Glass Forming Crew Member Relationship Specialty Start Date End Date Lianna Calero MD PCP - General Family Medicine 06/30/17
--- OUTSIDE RECORDS SUMMARY | 2025-07-30 08:45 | XMS_ITS | Encounter Summary ---
Author Organization [facility] Address [address] [facility] [place] [address] Care Team Providers Care Brilliandeer Lopper Name Role Phone Lianna Calero MD Primary Care Provider [phone] Clarice Helms NP Unavailable [phone] Encounter Details Date Type Department Care Team (Late st Contact Info) Description 03/28/2024 Orders Only [facility] [address] [place] [address] Renee Ramos NP [address], [place] [id number] Social History Tobacco Use Types Packs/Day Years Used Date Smoking Tobacco: Never Smokeless Tobacco: Never Alcohol Use Standard Drinks/Week Comments Yes 0 (1 standard drink = 0.6 oz pure alcohol) Sociallly, Caffeine intake: 1-2 cups per day coffee Humiliation, Afraid, Rape, and Kick questionnair e Answer Date Recorded Within the last year, have y ou been afraid of your partner or ex-partner? No 05/30/2023 Within the last year, have y ou been humiliated or emotionally abused in other ways by your partner or ex-partner? No Within the last year, have y ou been kicked, hit, slapped, or otherwise physically hurt by your partner or ex-partner? No 05/30/2023 Within the last year, have y ou been raped or forced to have any kind of sexual activity by your partner or ex-partner? No 05/30/2023 Social Connection and Isolation Panel Answer Date Recorded In a typical week, how many times do you talk on the phone with family, friends, or neighbors? Twice a week 05/30/20 23 How often do you get togethe r with friends or relatives? Once a week 05/30/2023 How often do you attend chur ch or congregational services? 1 to 4 times per year 05/30/2023 Do you belong to any clubs o r organizations such as methodist groups, unions, fraternal or athletic groups, or school groups? Yes 05/30/2023 Attends Club or Organization Meetings Not on reji e 05/30/2023 Are you , , di vorced, , never , or living with a partner? 05/30/2023 AUDIT-C Answer Date Recorded Q1: How often do you have a drink containing alc ohol? Monthly or less 11/03/2023 Q2: How many drinks containi ng alcohol do you have on a typical day when you are drinking? 1 or 2 11/03/2023 Q3: How often do you have si x or more drinks on one occasion? Never 11/03/2023 Overall Financial Resource Strain (CARDIA) Answe r Date Recorded How hard is it for you to pa y for the very basics like food, housing, medical care, and heating? Not hard at all 05/30/2023 PHQ-2 Answer Date Recorded Patient Health Questionnaire-2 Score 0 06/02/2023 [facility] - Occupational Stress Questionnaire Answer Date Recorded Do you feel stress - tense, restless, nervous, or anxious, or unable to sleep at night because your mind is troubled all the time - these days? To some extent 05/30/2023 Exercise Vital Sign Answer Date Recorde d Days of Exercise per Week Not on file 2022 On average, how many minutes do you engage in exercise at this level? 30 min 05/30/2023 Hunger Vital Sign Answer Date Recorded Within the past 12 months, y ou worried that your food would run out before you got the money to buy more. Never true 05/30/20 23 Within the past 12 months, t he food you bought just didn't last and you didn't have money to get more. Never true 05/30/2023 PRAPARE - Transportation Answer Date Re corded In the past 12 months, has l ack of transportation kept you from medical appointments or from getting medications? No 05/17 In the past 12 months, has l ack of transportation kept you from meetings, work, or from getting things needed for daily living? No 05/30/2023 Housing Stability Vital Sign Answer Charlie e Recorded In the last 12 months, was t here a time when you were not able to pay the mortgage or rent on time? No 05/30/2023 In the last 12 months, how many places have you lived? 1 05/30/2023 In the last 12 months, was t here a time when you did not have a steady place to sleep or slept in a longterm (including now)? 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 Not on file Not on file documented as of this encounter Plan of Treatment Upcoming Encounters Date Type Department Care Team (Late st Contact Info) Description 05/13/2026 9:00 AM EDT Office Visit [facility] [address] [place] [address] Clarice Helms NP [address] [place] [address] documented as of this encounter Visit Diagnoses Not on filedocumented in this encounter Additional Health Concerns Assessment Noted Time PHQ-9 Depression Total Score: 1 06/02/20 23 10:00 AM EDT documented as of this encounter Care Teams Brilliandeer Lopper Relationship Specialty Start Date End Date Lianna Calero MD PCP - General Family Medicine 02/22/23 Clarice Helms NP [address] [place], [place] [id number] PCP - Medical [place] [employer] 06/17/19 10/16/99 documented as of this encounter
--- OUTSIDE RECORDS SUMMARY | 2025-07-30 08:46 | XMS_ITS | Clinical Summary ---
Author Organization [facility] Address [address] [facility] [place] [address] Care Team Providers Care Child Protective Investigator Name Role Phone Lianna Calero MD Primary Care Provider [phone] Clarice Helms CLAMPER Unavailable [phone] Allergies No known active allergies Medications progesterone 100 MG capsule Take 100 mg by mouth in the morning. Pt unsure of dose. Active Multiple Vitamins-Minera ls (MULTIVITAMIN ADULT, MINERALS, PO) Take by mouth. A ctive spironolactone (Aldactone) 100 MG tabletIndicatio ns:Other acne Take 1 tablet (100 mg) by mouth in the morning. 90 tablet 4 Active tretinoin (Retin-A) 0.05 % cream APPLY TO AFFECTED AREA DAILY AT BEDTIME TOLERATED 4 Active Testosterone 20 % cream LOW DOSE Active Active Problems No known active problems Encounters Date Type Department Care Team Description 06/12/2025 11:30 AM EDT Office Visit [facility] [address] [place] [address] Clarice Helms NP Wellness examination (Primary Dx); Urinary frequency 06/12/2025 [facility] [address] [place] [address] Clarice Helms NP 06/12/2025 Travel 05/30/2025 [facility] [address] [place] [address] Lianna Calero MD 05/30/2025 Telephone [facility] [address] [place] [address] Wonderly, Lianna Woodward MD from Last 3 Months Immunizations Immunization Administration Dates Next Due DTP 04/30/1991, 7,04/08/1986,1985,1985 Hep B, adult 10/14/2005,05/17/2005,04/14/2005 Influenza, injectable, MDCK, preservative free, quadrivalent 08/20/2019 Influenza, injectable, quadrivalent 09/07/2021,1 10/21/2013 Influenza, injectable, quadr ivalent, preservative free 08/06/2020,08/17/2019,08/26/2018,2015,07/14/2015 Influenza, seasonal, injectable 08/18/2017,07/16 MMR 04/03/1998,02/17/1987 OPV 04/30/1991, 7,02/04/1986,1985 Td (adult), unspecified 04/03/1998 Tdap 11/29/2017 Family History Medical History Relation Name Comments Heart disease Maternal Grandfather Hypertension Maternal Grandfather Meniere's disease Mother Diabetes Paternal Grandfather Heart disease Paternal Grandfather Hypertension Paternal Grandfather Ovarian cancer Paternal Grandmother Thyroid disease Sister Relation Name Status Comments Father Maternal Grandfather Mother Alive Paternal Grandfather Paternal Grandmother Sister 2 Social History Tobacco Use Types Packs/Day Years [...] friends, or neighbors? Twice a week 05/30/20 How often do you get togethe r with friends or relatives? Once a week 05/30/2023 How often do you attend [facility] or jewish services? 1 to 4 times per year 05/30/2023 Do you belong to any clubs o r organizations such as jew groups, unions, fraternal or athletic groups, or school groups? Yes 05/30/2023 Attends Club or Organization Meetings Not on reji e 05/30/2023 Are you , , di vorced, , never , or living with a partner? 05/30/2023 AUDIT-C Answer Date Recorded Q1: How often do you have a drink containing alc ohol? Monthly or less 06/04/2024 Q2: How many drinks containi ng alcohol do you have on a typical day when you are drinking? 3 or 4 06/04/2024 Q3: How often do you have si x or more drinks on one occasion? Never 06/04/2024 Overall Financial Resource Strain (CARDIA) Answe r Date Recorded How hard is it for you to pa y for the very basics like food, housing, medical care, and heating? Not hard at all 05/30/2023 PHQ-2 Answer Date Recorded Patient Health Questionnaire-2 Score 0 06/12/2025 [facility] - Occupational Stress [...] place to sleep or slept in a long term (including now)? No 05/30/2023 Comments No Sex and Gender Information Value Date Recorded Sex Assigned at Female 05/13/2023 10:56 AM EDT Legal Sex Female 6:53 PM EDT Gender Identity Female 05/13/2023 10:56 AM EDT Sexual Orientation Straight 05/13/2023 10 :56 AM EDT Occupation Industry Job Start Date Job End Date [employer] Not on file Not on file Not on file Last Filed Vital Signs Vital Sign Reading Time Taken Comments Blood Pressure 118/72 06/12/2025 11:14 AM EDT Pulse 78 06/12/2025 11:14 AM EDT Temperature 36.4 C (97.6 F) 06/12/2025 11:14 AM EDT Respiratory Rate - - Oxygen Saturation 97% 06/12/2025 11:14 AM EDT Inhaled Oxygen Concentration - - Weight 70.5 kg (155 lb 6.4 oz) 06/12/2025 11:14 AM EDT Height 172.7 cm (5' 8 ) 06/12/2025 11:14 AM EDT Body Mass Index 23.63 06/12/2025 11:14 AM EDT Plan of Treatment Upcoming Encounters Date Type Department Care Team (Late st Contact Info) Description 05/13/2026 9:00 AM EDT Office Visit [facility] [address] [place] [phone] Clarice Helms NP [address] [place] [address] Health Maintenance Due Date Last Done Comments Influenza Vaccine (#1) 2025 , 08/06/2020, 08/20/2019, Additional history exists HPV/Cotest 05/21/2027 05/21/2022 Cervical Cancer Screening 09/11/2027 Pap Smear 09/11/2027 09/11/2024 Procedures Procedure Name Priority Date/Time Associated Diagnosis Comments POCT URINALYSIS DIPSTICK Routine 06/12/2025 12:00 PM EDT Urinary frequency THINPREP IMAGING PAP AND HPV DNA REFLEX HPV 16,18 Routine 09/11/2024 4:16 PM EST Screening for cervical cancer THINPREP PAP AND HPV MRNA E6/E7 REFLEX HPV 16,18/45 Routine 05/21/2022 from Last 3 Months or Most Recently Relevant to Health Maintenance Results * POCT Urinalysis dipstick (06/12/2025 12:00 PM EDT) Color, UA Light Yellow Clarity, UA Clear Glucose, UA Negative Negative - 2000(110) ++++ mg/dL Bilirubin, UA Negative Negative - 4(70) +++ mg/dL Ketones, UA Negative Negative - 160(16) ++++ mg/dL Spec Grav, UA 1.005 1 - 1.03 Blood, UA Negative Negative - 50 Hi/mcL pH, UA 8.0 5 - 9 Protein, UA Negative Negative - 2000(20) ++++ mg/dL Urobilinogen, UA 1.0 0.2 - 12 mg/dL Leukocytes, UA Negative Negative - 500+++ Irwin/mcL Nitrite, UA Negative Negative - Positive Urine 06/12/2025 12:0 0 PM EDT Clarice Helms NP POINT OF CARE TEST ENTER/E DIT ORDERABLES Final Result * THINPREP IMAGING PAP AND HPV DNA REFLEX HPV 16,18 (09/11/2024 4:16 PM EST) CLINICAL INFORMATION [facility] Comment:None given LMP [facility] Comment:NONE GIVEN PREV. PAP [facility] Comment:NONE GIVEN PREV. BX [facility] Comment:NONE GIVEN SOURCE [facility] Comment:None given STATEMENT OF ADEQUACY [facility] Comment: Satisfactory for evaluation. Endocervical/transformation zone component present. INTERPRETATION/RESU LT [facility] Comment: Cytology Results: Negative for intraepithelial lesion or malignancy. COMMENT [facility] Comment: This Pap test has been evaluated with computer assisted technology. ANODIC TREATER [facility] Comment: SPS, CT(ASCP) CT Screening Location: [facility] [place] [address] REVIEW ANODIC TREATER [facility] Comment: LXT, CT(ASCP) CT screening location: [facility] [place] [address]. (ALWAYS MESSAGE) [facility] Comment: EXPLANATORY NOTE: The Pap is a screening test for cervical cancer. It is not a diagnostic test and is subject to false negative and false positive results. It is most reliable when a satisfactory sample, regularly obtained, is submitted with relevant clinical findings and history, and when the Pap result is evaluated along with historic and current clinical information. HPV DNA, HIGH RISK, CERVICAL Not Detected NOT DETECTED [facility] Comment: Not Detected High Risk HPV types (16,18,31,33,35,39,45,51,52, 56,58,59,66,68) were not detected. Other HPV types which cause anogenital lesions may be present. The significance of the other types of HPV in malignant processes has not been established. Methodology: Real Time PCR Swab Cervical swab / Unknown 09/11/2024 4:16 PM EST 09/12/2024 3:17 AM EST Narrative Resulting Agency Comment Performing Organization Information Site ID: [id number] Name: [facility] [place] Address: [address] [place] [address] Dr Wright [place] Director: Jose Hodgson M.D.,PhD Site ID: [id number] Name: [facility] Address: [address] [place] [address], [address] [place] [id number] Director: Boo Soni MD Hortensia Shields Jim CN LAB CYTOLOGY ORDERABLES Amber shields Result [facility] * THINPREP PAP AND HPV MRNA E6/E7 REFLEX HPV 16,18/45 (05/21/2022) CLINICAL INFORMATION: None given [facility] LMP: None given [facility] PREV. PAP: None given [facility] PREV. BX: None given [facility] SOURCE: None given [facility] STATEMENT OF ADEQUACY: SEE COMMENT [facility] Comment: Satisfactory for evaluation. Endocervical/transformation zone component present. INTERPRETATION/R ESULT: Negative for intraepithelial lesion or malignancy. [facility] ANODIC TREATER : SEE COMMENT [facility] Comment: IDANIA CT(ASCP) CT screening location: [facility] [place] [address]. REVIEW ANODIC TREATER : SEE COMMENT [facility] Comment: KALEY CT(ASCP) CT screening location: [facility] [place] [address]. COMMENT SEE COMMENT [facility] Comment: EXPLANATORY NOTE: The Pap is a screening test for cervical cancer. It is not a diagnostic test and is subject to false negative and false positive results. It is most reliable when a satisfactory sample, regularly obtained, is submitted with relevant clinical findings and history, and when the Pap result is evaluated along with historic and current clinical information. HPV MRNA E6/E7 Not Detected Not Detected [facility] Comment: Methodology: Torch Brazer-Mediated Amplification This assay detects E6/E7 viral messenger RNA (mRNA) from 14 high-risk HPV types (16,18,31,33,35,39,45,51,52,56,58,59,66,68). Cervical sources are required for HPV testing. If a vaginal source from a patient who has had a total hysterectomy with removal of cervix was submitted, please contact the testing laboratory for alternative testing options. For additional information, please refer to http://education.Seeq/faq/WBZ542u8 (This link if provided for information/ educational purposes only.) NO COLLECTION DATE RECEIVED. WE HAVE USED THE DATE THE SPECIMEN WAS RECEIVED BY THIS LABORATORY THE COLLECTION DATE. IF THIS IS INCORRECT, PLEASE CONTACT CLIENT SERVICES. PHONE NUMBER: [phone] 05/21/2022 Hortensia Fernandez CNM [facility] Final Result [facility] from Last 3 Months or Most Recently Relevant to Health Maintenance Insurance [employer] Care Teams Child Protective Investigator Relationship Specialty Start Date End Date Lianna Calero MD PCP - General Family Medicine 02/22/23 Clarice Helms NP [address] [place] [address] PCP - Medical [place] [employer] 06/17/19 10/16/99
--- OUTSIDE RECORDS SUMMARY | 2025-07-30 08:47 | XMS_ITS | CCD ---
Author Organization [facility] Care Team Providers Care Obstetrician And Gynaecologist Name Role Phone DR LIANNA CARLISLE Admitting Unavailable ORESTES, DR LIANNA Woodward Attending Unavailable EFFIE TRIMBLE Consulting Unavailable EFFIE TRIMBLE Attending Unavailable ORESTES, DR LIANNA Woodward Primary Care Unavailable EFFIE TRIMBLE Admitting Unavailable NHAN DIA Attending Unavailable Lianna Carlisle MD Primary Care Provider Lianna Carlisle MD Unavailable [phone] Lianna Carlisle MD Primary Care Provider Lianna Carlisle MD Unavailable Lianna Carlisle MD Primary Care Provider Anival Bledsoe NP Unavailable [phone] ANIVAL BLEDSOE Attending Unavailable ANIVAL BLEDSOE Attending Unavailable RENEE RAMOS Attending Unavailable DEMARCO FERNANDEZ Attending Unavailable Medications [...] 12/20/2024 Active ketoconazole 20 mg/ml medicated shampoo (14 sources) Azole Antifungal Start: 08-02-2024 End: 06-12-2025 ketoconazole (NIZOral) 2 % shampoo APPLY TO AFFECTED AREAS ON SHOULDERS. LEAVE ON FOR 1-2 MINUTES THEN RINSE OFF 08/02/2024 06/12/2025 Discontinued Multiple Vitamins-Minerals (MULTIVITAMIN ADULT, MINERALS, PO) (19 sources) Multiple Vitamins-Minerals (MULTIVITAMIN ADULT, MINERALS, PO) Take by mouth. Active progesterone 100 mg oral capsule (19 sources) Progesterone take 1 capsule by mouth in the morning progesterone 100 MG capsule Take 100 mg by mouth in the morning. Pt unsure of dose. Active spironolactone 100 mg oral tablet (20 sources) Aldosterone Antagonist Start: 08-29-2024 take 1 [...] 90 tablet 03/28/2024 08/13/2024 Discontinued (Reorder) Testosterone (14 sources) Androgen Testosterone 20 % cream LOW DOSE Active tretinoin 0.5 mg/ml topical cream (14 sources) Retinoid Start: 08-03-2024 tretinoin (Ret in-A) 0.05 % cream APPLY TO AFFECTED AREA DAILY AT BEDTIME TOLERATED 08/03/2024 Active Problems Active Problems Problem Classification Problem Date Documented Da te Episodic/Chronic Abdominal pain (2 sources) Generalized abdominal pain; Translations: [Generalized abdominal pain] 12-10-2024 Episodic Allergic reactions (2 sources) Non-celiac gluten sensitivity; 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 Genitourinary symptoms and ill-defined conditions (2 sources) Increased frequency of urination; Translations: [Frequency of micturition] 06-12-2025 Episodic Malaise and fatigue (2 sources) Fatigue; Translations: [...] Date Documented Da te Episodic/Chronic Mood disorders (19 sources) Mood disorders Onset: 06-02-2023 06-02-2023 Results Test Name Value Interpretation Reference Range Facility Urinalysis macro (dipstick) panel (U)on 06-12-2025 Bilirubin, UA Negative Negative - 4(70) +++ mg/dL [facility] Blood, UA Negative Negative - 50 Hi/mcL [facility] Clarity, UA Clear [facility] re Color, UA Light Yellow [facility] are Glucose, UA Negative Negative - 1999(110) ++++ mg/dL [facility] Interpretation and review of laboratory results Normal [facility] Ketones, UA Negative Negative - 160(16) ++++ mg/dL [facility] Leukocytes, UA Negative Negative - 500+++ Irwin/mcL [facility] Nitrite, UA Negative Negative - Positive [facility] pH, UA 8 5 - 9 [facility] Protein, UA Negative Negative - 1999(20) ++++ mg/dL [facility] Spec Grav, UA 1.005 1 - 1.03 [facility] Urobilinogen, UA 1.0 0.2 - 12 mg/dL [facility] ALL CBC WITH AUTO DIFFon BASOPHILS ABSOLUTE AUTO 0 [facility] Basophils/100 WBC (Bld) 0.4 % 0.2 - 2.0 % [facility] Eosinophils/100 WBC (Bld) 1.2 % 0.9 - 7.0 % [facility] Erythrocyte distribution width (RBC) [Ratio] 11.5 % 11.0 - 15.0 % [facility] Hematocrit (Bld) [Volume fraction] 42.4 % 36.0 - 48.0 % [facility] Hemoglobin (Bld) [Mass/Vol] 14.2 g/dL 12.0 - 16.0 g/dL [facility] IMMATURE GRANULOCYTES ABS AUTO 0.01 [facility] Immature granulocytes/100 WBC (Bld) 0.2 % 0.0 - 0.5 % [facility] LYMPHOCYTES ABSOLUTE AUTO 1.5 [facility] Lymphocytes/100 WBC (Bld) 28.1 % 20.5 - 60.0 % [facility] MCH (RBC) [Entitic mass] 30.9 pg 26.7 - 34.0 pg [facility] MCHC (RBC) [Mass/Vol] 33.5 g/dL 29.9 - 35.2 g/dL [facility] MCV (RBC) [Entitic vol] 92.2 fL 81.0 - 99.0 fL [facility] MONOCYTES ABSOLUTE AUTO 0.4 [facility] Monocytes/100 WBC (Bld) 7.7 % 1.7 - 12.0 % [facility] NEUTROPHILS ABSOLUTE AUTO 3.3 [facility] Neutrophils/100 WBC (Bld) 62.4 % 43.0 - 75.0 % [facility] Platelet mean volume (Bld) [Entitic vol] 9.7 fL 9.5 - 13.5 fL [facility] EO # 0.1 [facility] e [facility] [address] [facility] e [facility] RBC 4.6 [facility] e [facility] WBC 5.2 [facility] e [facility] e Laboratory - Cytologyon Radio Equipment Repairer Cyto stain Nom (Cvx/Vag) [ID] [facility] re Comment on above: SPS, CT(ASCP) CT Scr eening Location: [place] [address] LXT, CT(ASCP) CT scr eening location: [place] [address]. Cytology study comment Cyto stain Vamshi (Cvx/Vag) [Interp] [facility] Comment on above: This Pap test has be en evaluated with computer assisted technology. Microscopic observation Cyto stain Nom (Cvx) [facility] Comment on above: Cytology Results: Ne gative for intraepithelial lesion or malignancy. Specimen source Cyto stain Nom (Cvx/Vag) [facility] are Comment on above: None given Statement of adequacy Cyto stain (Cvx/Vag) [Interp] [facility] Comment on above: Satisfactory for naveen luation. Endocervical/transformation zone component present. Laboratory - Microbiology an d Antimicrobial susceptibilityon 09-18-2024 HPV 16+18+31+33+35+39+45+ 51+52+56+58+59+66+68 DNA TAMMY+probe Ql (Cvx) Not detected NOT DETECTED [facility] Comment on above: Not Detected High Risk HPV types (16,18,31,33,35,39,45,51,52, 56,58,59,66,68) were not detected. Other HPV types which cause anogenital lesions may be present. The significance of the other types of HPV in malignant processes has not been established. Methodology: Real Time PCR No Panel Informationon 09-18 (ALWAYS MESSAGE) [facility] Comment on above: EXPLANATORY NOTE: The Pap [...] historic and current clinical information. Clinical information [facility] Comment on above: None given Date of previous biopsy [facility] Comment on above: NONE GIVEN Date of previous PAP smear [facility] Comment on above: NONE GIVEN Last menstrual period start date [facility] Comment on above: NONE GIVEN Performing Organization Information Site ID: [id number] Name: [facility] Address: [id number] [place] [address] Dr [place], [place] Director: Jose Hodsgon M.D.,PhD Site ID: [id number] Name: [facility] Address: [address] [place] [address], [address] [place] [id number] Director: Boo Soni MD [facility] ALL CBC WITH AUTO DIFFon BASOPHILS ABSOLUTE AUTO 0.0 [facility] Basophils/100 WBC (Bld) 0.2 % 0.2 - 2.0 % [facility] Eosinophils/100 WBC (Bld) 3.4 % 0.9 [...] (Bld) 36.0 % 20.5 - 60.0 % [facility] MCH (RBC) [Entitic mass] 30.5 pg 26.7 - 34.0 pg [facility] MCHC (RBC) [Mass/Vol] 33.2 g/dL 29.9 - 35.2 g/dL [facility] MCV (RBC) [Entitic vol] 92.1 fL 81.0 - 99.0 fL [facility] MONOCYTES ABSOLUTE AUTO 0.3 [facility] [...] SURGICAL PATH REPORTon 09-21 SURGICAL PATH REPORT [facility] Department of Pathology [address] [place] [address] Name: KRYSTINA BLEDSOE : 1985 [employer] [id number] Number: Gender Female Locatio BAY ESTEFANIA : n: Admit 38 years Attending NHAN DIA Age: Provider: NHAN Copeland Provider: [facility] Report ng: ACCESSION: COLLECTED DATE/TIME: RECEIVED DATE/TIME: PATHOLOGIST: [id number] 09/16/2023 10:20 EST 09/19/2023 13:49 SEFERINO BRAXTON MD, ZACKARY GOSS Final Diagnosis Report for [facility], AN[place], [place] BILATERAL FALLOPIAN TUBES, BILATERAL SALPINGECTOMY: - [...] are serially sectioned in a transverse manner. Claims Associate sections are submitted under the following designations: #1 - first described fallopian tube #2 - second described fallopian tube MP/slb ____ Print 09/21/2023 08:50 EST Number: Date/Time: [facility] Department of Pathology [address] [place] [address] [phone] Name: KRYSTINA BLEDSOE : 1985 [facility] [id number] Number: Gender Female Roland MALROW ESTEFANIA : n: Admit 38 years Attending NHAN DIA Age: Provider: Ordering NHAN DIA Provider: [facility] Report ng: ACCESSION: COLLECTED DATE/TIME: RECEIVED DATE/TIME: PATHOLOGIST: [id number] 09/16/2023 10:20 EST 09/19/2023 13:49 EST FOX ALLEN, ZACKARY GOSS Gross Description 09/19/2023 Microscopic Diagnosis The final diagnosis is based on a microscopic exam of quality assurance representative sections. Codes CPT CODE: 51298 ____ Print 09/21/2023 08:50 EST Number: Date/Time: Normal [facility] Comment on above: Performed By: #### [id number] #### [facility] [address] [place], [place] [id number] [employer] Crewman: Branden Zhao MD TESTOSTERONE, FREE,DIRECT, T [facility] 11-26-2020 Free Testosterone(Direct) 0.6 pg/mL Normal 0.0-4.2 [facility] Comment on above: Result Comment: Perf ormed at: BN Performed By: #### T ESTFRD #### [facility] [address] [place], [place] [address] Awa Elva Testosterone [Mass/Vol] 14 ng/dL Normal 8-48 [facility] Comment on above: Result Comment: Perf ormed at: CB Performed By: #### T ESTFRD #### [facility] [address] [place], [place] [address] Awa Elva ZINC SERUM OR PLASMAon 11-26 Zinc, Plasma or Serum 106 ug/dL Normal 44-115 [facility] Comment on above: Result Comment: Dete ction Limit = 5 . Please note reference interval change Performed By: #### L TIMH #### [facility] [address] [place] [address] Awa Stevenson VIT D 1 25 DIHYDROXYon 11-25 Calcitriol(1,25 di-OH Vit D) 47.3 pg/mL Normal 19.9-79.3 [facility] Comment on above: Performed By: #### V [id number] #### [facility] [address] [place] [address] Awa Stevenson DHEA-SULFATEon 11-23-2020 DHEA-Sulfate 69.0 ug/dL Normal 57.3-279.2 [facility] Comment on above: Performed By: #### L SOLANGE #### [facility] [address] [place] [address] Awa Stevenson FSHon 11-23-2020 FSH 7.5 mIU/mL Normal [facility] Comment on above: Result Comment: Adul t Female: Follicular phase 3.5 - 12.5 Ovulation phase 4.7 - 21.5 Luteal phase 1.7 - 7.7 Postmenopausal 25.8 - 134.8 Performed By: #### L BCL #### [facility] [address] [place] [address] Awa Stevenson LUTEINIZING HORMONE (LH)on 0 11-23-2020 LH 9.8 mIU/mL Normal [facility] Comment on above: Result Comment: Adul t Female: Follicular phase 2.4 - 12.6 Ovulation phase 14.0 - 95.6 Luteal phase 1.0 - 11.4 Postmenopausal 7.7 - 58.5 Performed By: #### L BCL #### [facility] [address] [place] [address] Awa Stevenson PROLACTINon 11-23-2020 Prolactin 9.7 ng/mL Normal 4.8-23.3 [facility] Comment on above: Performed By: #### P ROLAC #### [facility] [address] [place], [place] [id number] Awaroselyn Stevenson CBC AUTO DIFFon 02-06-2021 BASO # 0.0 103/ul Normal 0.0-0.1 [facility] Comment on above: Performed By: #### C BC #### [facility] [address] [place], [place] [id number] Awa Elva Basophils/100 WBC (Bld) 0.2 % Normal 0.2-2.0 [facility] Comment on above: Performed By: #### C BC #### [facility] [address] [place], [place] [id number] Awa Elva EO # 0.0 103/ul Normal 0.0-0.7 [facility] Comment on above: Performed By: #### C BC #### [facility] [address] [place] [address] Awa Elva Eosinophils/100 WBC (Bld) 1.0 % Normal 0.9-7.0 [facility] Comment on above: Performed By: #### C BC #### [facility] [address] [place] [address] Awa Elva Erythrocyte distribution width (RBC) [Ratio] 11.2 % Normal 11.0-15.0 [facility] Comment on above: Performed By: #### C BC #### [facility] [address] [place] [address] Awa Elva Hematocrit (Bld) [Volume fraction] 42.3 % Normal 36.0-48.0 [facility] Comment on above: Performed By: #### C BC #### [facility] [address] [place] [address] Awa Elva Hemoglobin (Bld) [Mass/Vol] 14.4 g/dL Normal 12.0-16.0 [facility] Comment on above: Performed By: #### C BC #### [facility] [address] [place] [address] Awa Elva IG # 0.01 10e3/ul Normal 0.00-0.03 [facility] Comment on above: Performed By: #### C BC #### [facility] [address] [place], [place] [id number] Awa Elva IG % 0.2 % Normal 0.0-0.5 [facility] Comment on above: Performed By: #### C BC #### [facility] [address] [place] [id number] Awa Elva LYMPH # 1.6 103/ul Normal 1.2-3.8 [facility] Comment on above: Performed By: #### C BC #### [facility] [address] [place] [id number] Awa Elva Lymphocytes/100 WBC (Bld) 39.3 % Normal 20.5-60.0 [facility] Comment on above: Performed By: #### C BC #### [facility] [address] [place], [place] [id number] Awa Elva MANUAL DIFF REQ NO Normal [facility] Comment on above: Performed By: #### C BC #### [facility] [address] [place], [place] [id number] Awa Elva MCH (RBC) [Entitic mass] 30.6 pg Normal 26.7-34.0 [facility] Comment on above: Performed By: #### C BC #### [facility] [address] [place], [place] [id number] Waa Elva MCHC (RBC) [Mass/Vol] 34.0 g/dL Normal 29.9-35.2 [facility] Comment on above: Performed By: #### C BC #### [facility] [address] [place], [place] [id number] Awa Elva MCV (RBC) [Entitic vol] 90.0 fL Normal 81.0-99.0 [facility] Comment on above: Performed By: #### C BC #### [facility] [address] [place], [place] [id number] Awa Elva MONO # 0.3 103/ul Normal 0.3-0.8 [facility] Comment on above: Performed By: #### C BC #### [facility] [address] [place], [place] [id number] Awa Elva Monocytes/100 WBC (Bld) 6.7 % Normal 1.7-12.0 [facility] Comment on above: Performed By: #### C BC #### [facility] [address] [place] [address] Awa Elva NEUT # 2.1 103/ul Normal 1.4-6.5 [facility] Comment on above: Performed By: #### C BC #### [facility] [address] [place], [place] [id number] Awa Elva Neutrophils/100 WBC (Bld) 52.6 % Normal 43.0-75.0 [facility] Comment on above: Performed By: #### C BC #### [facility] [address] [place], [place] [id number] Awaroselyn Stevenson Platelet mean volume (Bld) [Entitic vol] 9.3 fL Critically low 9.5-13.5 [facility] Comment on above: Performed By: #### C BC #### [facility] [address] [place] [address] Awa Elva PLT 207 103/ul Normal 150-450 [facility] Comment on above: Performed By: #### C BC #### [facility] [address] [place] [address] Awa Elva RBC 4.70 106/ul Normal 4.20-5.40 [facility] Comment on above: Performed By: #### C BC #### [facility] [address] [place] [address] Awa Elva WBC 4.0 103/ul Normal 4.0-11.0 [facility] Comment on above: Performed By: #### C BC #### [facility] [address] [place] [address] Awa Elva FREE T3on 11-22-2020 FREE T3 2.77 pg/mlL Normal 2.77-5.27 [facility] Comment on above: Performed By: #### F T3, TSH #### [facility] [address] [place], [place] [id number] Awa Elva FREE T4on 11-22-2020 Free T4 [Mass/Vol] 1.13 ng/dL Normal 0.78-2.19 [facility] Comment on above: Performed By: #### V ITB12, IRON, FT4 #### [facility] [address] [place], [place] [id number] Awa Stevenson IRONon 11-22-2020 Iron [Mass/Vol] 101.0 ug/dL Normal 37.0-170.0 [facility] Comment on above: Performed By: #### V ITB12, IRON, FT4 #### [facility] [address] [place] [address] Awa Stevenson TSHon 11-22-2020 TSH 1.202 uIU/mL Normal 0.470-4.680 [facility] Comment on above: Performed By: #### F T3, TSH #### [facility] [address] [place] [address] TSH RANGE SEE BELOW Normal [facility] Comment on above: Result Comment: <0.3 4 UIU/ml HYPERTHYROID 0.34-5.60 UIU/ml EUTHYROID >5.60 UIU/ml HYPOTHYROID Performed By: #### F T3, TSH #### [facility] [address] [place] [address] VITAMIN B12on 11-22-2020 Cobalamin (Vitamin B12) [Mass/Vol] 324.0 pg/mL Normal 239.0-931.0 [facility] Comment on above: Performed By: #### V ITB12, IRON, FT4 #### [facility] [address] [place], [place] [id number] Awa Stevenson Vital Signs Date Time Vital Sign Value Performing Clinician Cheryli lity 06-12-2025 11: Body height 172.7 cm Anival Bledsoe NP Work Phone: [facility] 06-12-2025 11: Body mass index (BMI) [Ratio] 23.63 kg/m2 Anival Bledsoe NP Work Phone: [facility] 06-12-2025 11: Body temperature 97.59 [degF] Anival Bledsoe NP Work Phone: [facility] 06-12-2025 11:14040 Body weight 70.49 kg Anival Bledsoe NP Work Phone: [facility] 06-12-2025 11:14-0400 Diastolic blood pressure 72 mm[Hg] Anival Analia RENTAL SALES ASSOCIATE Work Phone: [facility] 06-12-2025 11:14-0400 Heart rate 78 /min Anival Analia RENTAL SALES ASSOCIATE Work Phone: [facility] 06-12-2025 11:14-0400 SaO2% (BldA) [Mass fraction] 97 % Anival Analia RENTAL SALES ASSOCIATE Work Phone: [facility] 06-12-2025 11:14-0400 Systolic blood pressure 118 mm[Hg] Anival Analia RENTAL SALES ASSOCIATE Work Phone: [facility] 12-10-2024 15:02-0500 Diastolic blood pressure 80 mm[Hg] Anival Analia RENTAL SALES ASSOCIATE Work Phone: [facility] 12-10-2024 15:02-0500 Heart rate 68 /min Anival Analia RENTAL SALES ASSOCIATE Work Phone: [facility] 12-10-2024 15:02-0500 SaO2% (BldA) [Mass fraction] 99 % Anival Mckenzieman RENTAL SALES ASSOCIATE Work Phone: [facility] 12-10-2024 15:02-0500 Systolic blood pressure 118 mm[Hg] Anival Mckenzieman RENTAL SALES ASSOCIATE Work Phone: [facility] 09-11-2024 15:09-0500 Body mass index (BMI) [Ratio] 23.72 kg/m2 Demarco Fernandez CNM Work Phone: [facility] 09-11-2024 15:09-0500 Body weight 70.76 kg Demarco Fernandez CNM Work Phone: [facility] 08-29-2024 11:35-0500 Body mass index (BMI) [Ratio] 23.99 kg/m2 Renee Pump RENTAL SALES ASSOCIATE Work Phone: [facility] 08-29-2024 11:35-0500 Body weight 71.58 kg Renee Pump RENTAL SALES ASSOCIATE Work Phone: [facility] 08-29-2024 11:35-0500 Diastolic blood pressure 74 mm[Hg] Renee Pump RENTAL SALES ASSOCIATE Work Phone: [facility] 08-29-2024 11:35-0500 Heart rate 68 /min Renee Pump RENTAL SALES ASSOCIATE Work Phone: [facility] 08-29-2024 11:35-0500 Systolic blood pressure 116 mm[Hg] Renee Pump RENTAL SALES ASSOCIATE Work Phone: [facility] 06-04-2024 13:13-0400 Body height 172.7 cm Renee Pump RENTAL SALES ASSOCIATE Work Phone: [facility] 06-04-2024 13:13-0400 Body mass index (BMI) [Ratio] 23.87 kg/m2 Renee Pump RENTAL SALES ASSOCIATE Work Phone: [facility] 06-04-2024 13:13-0400 Body weight 71.22 kg Renee Pump RENTAL SALES ASSOCIATE Work Phone: [facility] 06-04-2024 13:13-0400 Diastolic blood pressure 64 mm[Hg] Renee Pump RENTAL SALES ASSOCIATE Work Phone: [facility] 06-04-2024 13:13-0400 Heart rate 72 /min Renee Pump RENTAL SALES ASSOCIATE Work Phone: [facility] 06-04-2024 13:13-0400 Systolic blood pressure 100 mm[Hg] Renee Pump RENTAL SALES ASSOCIATE Work Phone: [facility] Healthcare Encounters Encounter Date Encounter Type Care Provider Facility Start: 06-12-2025 End: 06-12-2025 Bamboo flowsheet Anival Bledsoe RENTAL SALES ASSOCIATE Work Phone: [facility] Start: 06-12-2025 End: 06-12-2025 Bamboo flowsheet Anival Bledsoe RENTAL SALES ASSOCIATE Work Phone: [facility] Start: 06-12-2025 End: 06-12-2025 Patient encounter status Anival Bledsoe RENTAL SALES ASSOCIATE Work Phone: [facility] Start: 06-12-2025 End: 06-12-2025 Periodic preventive med est patient 18-39 yrs Anival Bledsoe RENTAL SALES ASSOCIATE Work Phone: [facility] Comment on above: Wellness examination (Primary Dx); Urinary frequency Start: 06-12-2025 End: 06-12-2025 ambulatory ANIVAL BLEDSOE Not Available Start: 05-30-2025 End: 05-30-2025 Telephone encounter Lianna Carlisle MD Other Phone: [facility] Start: 03-13-2025 End: 03-13-2025 [facility] Result Encounter Generic External Data Provider [facility] Unsolicited Start: 03-13-2025 End: 03-13-2025 [facility] Result Encounter Generic External Data Provider [facility] Unsolicited Start: 12-10-2024 End: 12-10-2024 Office outpatient visit 15 minutes Anival Bledsoe NP Work Phone: [facility] Comment on above: Subacute cough (Prim radha Dx); Generalized abdominal pain; Other fatigue Start: 12-10-2024 End: 12-10-2024 ambulatory ANIVAL BLEDSOE Not Available Start: 12-10-2024 End: 12-10-2024 Bamboo flowsheet Anival Bledsoe RENTAL SALES ASSOCIATE Work Phone: [facility] Start: 12-10-2024 End: 12-10-2024 Bamboo flowsheet Anival Bledsoe RENTAL SALES ASSOCIATE Work Phone: [facility] Start: 09-11-2024 End: 09-11-2024 Gynecological examination normal Demarco L Floro CN Work Phone: [facility] Start: 09-11-2024 End: 09-11-2024 Periodic preventive med est patient 18-39 yrs Demarco L Floro CNM Work Phone: [facility] Comment on above: Normal gynecologic e xamination; Screening for cervical cancer Start: 09-11-2024 End: 09-11-2024 ambulatory DEMARCO L FLORO Not Available Start: 09-11-2024 End: 09-11-2024 Bamboo flowsheet Demarco L Floro CNM Work Phone: [facility] Start: 09-11-2024 End: 09-11-2024 Bamboo flowsheet Demarco Sandar Floro CNM Work Phone: [facility] Start: 09-04-2024 End: 09-04-2024 Telephone encounter Lianna Carlisle MD Work Phone: [facility] Start: 08-29-2024 End: 08-29-2024 Bamboo flowsheet Renee Pump RENTAL SALES ASSOCIATE Work Phone: [facility] Start: 08-29-2024 End: 08-29-2024 Bamboo flowsheet Renee Pump RENTAL SALES ASSOCIATE Work Phone: [facility] Start: 08-29-2024 End: 08-29-2024 Office outpatient visit 15 minutes Renee Pump RENTAL SALES ASSOCIATE Work Phone: [facility] Comment on above: Anal itching (Primar y Dx) Start: 08-29-2024 End: 08-29-2024 ambulatory RENEE PUMP Not Available Start: 08-13-2024 End: 08-29-2024 Refill Demarco Galvano CNM Work Phone: [facility] Comment on above: Other acne Start: 07-14-2024 End: 07-14-2024 Clinisync Result Encounter Generic External Data Provider [facility] Unsolicited Start: 07-14-2024 End: 07-14-2024 Clinisync Result Encounter Generic External Data Provider [facility] Unsolicited Start: 06-04-2024 End: 06-04-2024 Patient encounter status Renee Pump RENTAL SALES ASSOCIATE Work Phone: [facility] Work Phone: Start: 06-04-2024 End: 06-04-2024 Periodic preventive med est patient 18-39 yrs Renee Pump RENTAL SALES ASSOCIATE Work Phone: [facility] Comment on above: Wellness examination (Primary Dx); Gluten intolerance Start: 09-16-2023 End: 09-17-2023 ambulatory NHAN DIA Facility:[facility] Start: 01-14-[address] LIANNA CARLISLE [place] lity:H1 Start: 11-22-2020 End: 11-23-2020 ambulatory EFFIE TRIMBLE Facility:[facility] Procedures Date Procedure Procedure Detail Performing Clinician Start: 06-12-2025 Urnls dip stick/tabl et rgnt non-auto w/o micrscp Anival Bledsoe RENTAL SALES ASSOCIATE Work Phone: Start: 03-13-2025 ALL CBC WITH AUTO DIFF Generic External Data Provider Start: 09-11-2024 THINPREP IMAGING PAP AND HPV DNA REFLEX HPV 16,18 Demarco Fernandez CNM Work Phone: Start: 08-29-2024 SALMONELLA/SHIGELLA CULT, CAMPY EIA AN DSHIGA TOXIN W/RFL E.COLI 0157 CULT Renee Pump RENTAL SALES ASSOCIATE Work Phone: Start: 07-14-2024 ALL CBC WITH AUTO DIFF Generic External Data Provider Plan of Treatment Date Care Activity Detail Author Start: 05-21-2027 Screening for malign ant neoplasm of cervix [facility] Start: 05-13-2026 End: 05-13-2026 Patient encounter procedure 05/13/2026 9:00 AM EDT Office Visit [facility] [address] [place] [id number] Anival Bledsoe NP [address] [place] [address] [facility] Start: 06-17-2025 Influenza vaccination N [facility] Start: 06-12-2025 End: 06-12-2025 Patient encounter procedure 06/12/2025 11:30 AM EDT Office Visit [facility] [address] [place] [address] Anival Bledsoe NP [address] [place] [address] Arrived [facility] Comment on above: Arrived Start: 06-06-2025 End: 06-06-2025 Patient encounter procedure [facility] Start: 04-15-2025 Influenza vaccination Influenza Vacc ine (#1) [facility] Comment on above: Postponed from 06/17 (Supply/Drug Shortage) Start: 12-10-2024 End: 12-10-2024 Patient encounter procedure 12/10/2024 3:00 PM EST Office Visit [facility] [address] [place] [phone] Anival Bledsoe NP [address] [place] [address] Arrived [facility] Comment on above: Arrived Start: 09-11-2024 End: 09-11-2024 Patient encounter procedure 09/11/2024 3:00 PM EST Office Visit [facility] [address] [place] [phone] Demarco Fernandez CNM [address], [place] [id number] [facility] Start: 08-29-2024 End: 08-29-2025 Ova and parasites with giardia antigen [facility] Comment on above: Expected: 08/29/2024 (Approximate), Expires: 08/29/2025 Start: 08-29-2024 End: 08-29-2025 Stool culture Stool culture Microbiology Routine Anal itching Expected: 08/29/2024 (Approximate), Expires: 08/29/2025 [facility] Work Phone: Comment on above: Expected: 08/29/2024 (Approximate), Expires: 08/29/2025 Start: 06-17-2024 Influenza vaccination Influenza Vacc ine (#1) [facility] Start: 06-04-2024 End: 06-04-2025 CBC W Auto Differential panel - Blood CBC and differential Lab Routine Wellness examination Expected: 06/04/2024 (Approximate), Expires: 06/04/2025 [facility] Work Phone: Comment on above: Expected: 06/04/2024 (Approximate), Expires: 06/04/2025 Start: 06-04-2024 End: 06-04-2025 Comprehensive metabolic 2000 panel - Serum or Plasma Comprehensive metabolic panel Lab Routine Wellness examination Expected: 06/04/2024 (Approximate), Expires: 06/04/2025 [facility] Comment on above: Expected: 06/04/2024 (Approximate), Expires: 06/04/2025 Start: 06-04-2024 End: 06-04-2025 Lipid 1996 panel - Serum or Plasma Lipid panel Lab Routine Wellness examination Expected: 06/04/2024 (Approximate), Expires: 06/04/2025 [facility] Comment on above: Expected: 06/04/2024 (Approximate), Expires: 06/04/2025 Start: 06-04-2024 End: 06-04-2025 Tissue transglutaminase, IgA Tissue transglutaminase, IgA Lab Routine Gluten intolerance Expected: 06/04/2024 (Approximate), Expires: 06/04/2025 [facility] Comment on above: Expected: 06/04/2024 (Approximate), Expires: 06/04/2025 Start: 2006 Screening for malign ant neoplasm of cervix Pap Smear [facility] SALMONELLA/SHIGELLA CULT, CAMPY EIA AN DSHIGA TOXIN W/RFL E.COLI 0157 CULT SALMONELLA/SHIGELLA CULT, CAMPY EIA AN DSHIGA TOXIN W/RFL E.COLI 0157 CULT Lab Routine 08/29/2024 12:34 PM EST [facility] Immunizations Immunization Date Immunization Notes Care Provider Kristopher valiente 09-07-2021 influenza, injectabl e, quadrivalent, contains preservative Renee Pump RENTAL SALES ASSOCIATE Work Phone: [facility] 09-07-2021 influenza virus vacc ine, unspecified formulation Renee Pump RENTAL SALES ASSOCIATE Work Phone: [facility] 08-06-2020 influenza, injectabl e, quadrivalent, preservative free Renee Pump RENTAL SALES ASSOCIATE Work Phone: [facility] 08-20-2019 Influenza, injectabl e, Madin Connie Canine Kidney, preservative free, quadrivalent Renee Pump RENTAL SALES ASSOCIATE Work Phone: [facility] 08-17-2019 influenza, injectabl e, quadrivalent, preservative free Renee Pump RENTAL SALES ASSOCIATE Work Phone: [facility] 08-26-2018 influenza, injectabl e, quadrivalent, preservative free Renee Pump RENTAL SALES ASSOCIATE Work Phone: [facility] 11-29-2017 tetanus toxoid, redu rachel diphtheria toxoid, and acellular pertussis vaccine, adsorbed Renee Pump RENTAL SALES ASSOCIATE Work Phone: [facility] 08-18-2017 influenza, seasonal, injectable Renee Pump RENTAL SALES ASSOCIATE Work Phone: [facility] 07-21-2016 influenza, injectabl e, quadrivalent, preservative free Renee Pump RENTAL SALES ASSOCIATE Work Phone: [facility] 07-16-2015 influenza, seasonal, injectable Renee Pump RENTAL SALES ASSOCIATE Work Phone: [facility] 07-14-2015 influenza, injectabl e, quadrivalent, preservative free Renee Pump RENTAL SALES ASSOCIATE Work Phone: [facility] 08-21-2014 influenza, injectabl e, quadrivalent, contains preservative Renee Pump RENTAL SALES ASSOCIATE Work Phone: [facility] 10-14-2005 hepatitis B vaccine, adult dosage Renee Pump RENTAL SALES ASSOCIATE Work Phone: [facility] 05-17-2005 hepatitis B vaccine, adult dosage Renee Pump RENTAL SALES ASSOCIATE Work Phone: [facility] 04-14-2005 hepatitis B vaccine, adult dosage Renee Pump RENTAL SALES ASSOCIATE Work Phone: [facility] 04-03-1998 measles, mumps and rubella virus vaccine Renee Pump RENTAL SALES ASSOCIATE Work Phone: [facility] 04-03-1998 TD(adult) unspecifie d formulation Renee Pump RENTAL SALES ASSOCIATE Work Phone: [facility] 04-30-1991 diphtheria, tetanus toxoids and pertussis vaccine Renee Pump RENTAL SALES ASSOCIATE Work Phone: [facility] 04-30-1991 trivalent poliovirus vaccine, live, oral Renee Pump RENTAL SALES ASSOCIATE Work Phone: [facility] 02-17-1987 diphtheria, tetanus toxoids and pertussis vaccine Renee Pump RENTAL SALES ASSOCIATE Work Phone: [facility] 02-17-1987 measles, mumps and rubella virus vaccine Renee Pump RENTAL SALES ASSOCIATE Work Phone: [facility] 02-17-1987 trivalent poliovirus vaccine, live, oral Renee Pump RENTAL SALES ASSOCIATE Work Phone: [facility] 04-08-1986 diphtheria, tetanus toxoids and pertussis vaccine Renee Pump RENTAL SALES ASSOCIATE Work Phone: [facility] 02-04-1986 diphtheria, tetanus toxoids and pertussis vaccine Renee Pump RENTAL SALES ASSOCIATE Work Phone: [facility] 02-04-1986 trivalent poliovirus vaccine, live, oral Renee Pump RENTAL SALES ASSOCIATE Work Phone: [facility] 1985 diphtheria, tetanus toxoids and pertussis vaccine Renee Pump RENTAL SALES ASSOCIATE Work Phone: [facility] 1985 trivalent poliovirus vaccine, live, oral Renee Pump RENTAL SALES ASSOCIATE Work Phone: [facility] Payers Date Payer Category Payer Private Health Insurance [employer] [id number] 2022 Unknown [employer] [id number] 2022- [address] [place] [address] [id number] 1985 Unknown [id number] 1985 Unknown [id number] 1985 Unknown [id number] 1985 Unknown [id number] 1985 Unknown [id number] 1985 Unknown [id number] 1985 Unknown [id number] 1959 Self-pay 1959 Unknown [id number] Social History Date Type Detail Facility Start: 06-02-2023 Tobacco smoking stat [facility] Never smoked tobacco [facility] Start: 06-02-2023 Tobacco use and exposure Smoke less tobacco non-user [facility] Start: 06-04-2024 End: 06-12-2025 Alcoholic beverage intake Current drinker of alcohol (finding) [facility] Start: 05-30-2023 End: 06-12-2025 [facility] of Social function [facility] Start: 05-30-2023 End: 06-12-2025 Humiliation, Afraid, Rape, and Kick questionnaire [HARK] [facility] Within the last year , have you been afraid of your partner or ex-partner? No [facility] Do you belong to any clubs or organizations such as faith groups, unions, fraternal or athletic groups, or [...] got money to buy more. Never true [facility] Start: 09-30-2023 Alcohol Comment Sociallly, Caf feine intake: 1-2 cups per day coffee [facility] Start: 1985 Sex assigned at Female [facility] Start: 05-13-2023 Gender identity Identifies as female gender (finding) [facility] Start: 05-13-2023 Sexual orientation Heterosexual (fin ding) [facility] Functional Status Date Assessment Result Facility 06-12-2025 Patient Health Quest ionnaire 2 item (PHQ-2) [Reported] [facility] Clinical Notes 06-04-2024 to 06-12-2025 Anival Bledsoe NP - 06/12/2025 11:30 AM EDTTelephone Encounter - Tibucrio Myers - 05/30/2025 10:52 AM EDTTelephone Encounter - Tiburcio Myers - 05/30/2025 10:52 AM EDT Note Date & Type Note Facility 06-12-2025 History of Presen t illness Narrative Images from the original note were not included. Krystina Bledsoe is a 39 y.o. female presents with chief complaint of Annual Exam HPI: HPI History of Present Illness Krystina is here for a wellness exam. Krystina feels well overall. She feels like she is needing to go to the bathroom more often only in the evenings before she goes to bed. She thinks it may be more ritual. She reports the amounts vary sometimes but it doesn't typically wake her up. States that it is not an issue during the day. She is seeing a specialist for hormone replacement. She sees [facility] for annual women's screening and does self breast exams. Reports normal papsmear in the past. Periods are regular. Is not on control. Does yearly eye exams. Dental exams are twice a year. SUBJECTIVE: MEDICATIONS: Current Outpatient Medications Medication Instructions Multiple Vitamins-Minerals (MULTIVITAMIN ADULT, MINERALS, PO) Take [...] 30 min Stress: Stress Concern Present (05/30/2023) [employer] - Occupational Stress Questionnaire Feeling of Stress : To some extent Social Connections: Socially Integrated (05/30/2023) Social Connection and Isolation Panel [NHANES] Frequency of Communication with Friends and Family: Twice a week Frequency of Social Gatherings with Friends and Family: Once a week Attends Nondenominational Services: 1 to 4 times per year [...] SYMPTOMS: Review of Systems Constitutional: Positive for night sweats (Patient believes it is due to her hormones fluctuating. She is seeing a specialist for her hormones.). Negative for activity change, appetite change, chills, fever and hot flashes. HENT: Negative for congestion and sore throat. Eyes: Negative for visual disturbance. Respiratory: Negative for cough and shortness of breath. Cardiovascular: Negative for chest pain and palpitations. Gastrointestinal: Negative for abdominal pain, constipation, diarrhea and nausea. Genitourinary: Positive for frequency (Frequency is only in the evenings during awake times.). Negative for difficulty urinating, menstrual problem and urgency. Skin: Negative for rash. OBJECTIVE: Results 10/03/2023 8:47 AM 11/03/2023 11:34 AM 06/04/2024 1:13 PM 08/29/2024 11:35 AM 09/11/2024 3:09 PM 12/10/2024 3:02 PM 06/12/2025 11:14 AM Vitals BMI 22.81 kg/m2 23.17 kg/m2 23.87 kg/m2 23.99 kg/m2 23.72 kg/m2 23.63 kg/m2 BSA (m2) 1.81 m2 1.82 m2 1.85 m2 1.85 m2 1.84 m2 1.84 m2 Systolic 118 116 100 116 118 118 Diastolic 70 70 64 74 80 72 Heart Rate 72 72 68 68 78 SpO2 99 % 97 % Temp 97.6 F Height (in) 5' 8 5' 8 Weight (lb) 150 152.4 157 157.8 156 155.4 Visit Report Report Report Report Report Report Report Report Physical Exam Constitutional: Appearance: Normal appearance. HENT: Head: Normocephalic. Left Ear: Tympanic membrane normal. Cardiovascular: Rate and Rhythm: Regular rhythm. Musculoskeletal: Cervical back: Normal range of motion. Physical Exam ASSESSMENT AND PLAN: Assessment/Plan Diagnoses and all orders for this visit: Wellness examination Urinary frequency - POCT Urinalysis dipstick Assessment & Plan Follow up in a year. If Hormone doctor does not order a CMP, contact the office so one is done. Work on retraining the bladder in the evening by stretching out times between using the bathroom. Follow up in about 1 year (around 06/12/2026) for wellness. documented in this encounter [facility] 05-30-2025 Telephone encount er Note Krystina called back to reschedule appt w Renee - her son Vik Bledsoe) needed his wellchild and she needs phy for work . She was hoping to get it done before Jun 17. I said I would pass message along to see if they can be put in somewhere before that date. Also has to be closest to the evening if possible Krystina [phone] [facility] 05-30-2025 Miscellaneous Notes Formattin g of this note might be different from the original. Krystina called back to reschedule appt w Renee - her son Vik Bledsoe) needed his wellchild and she needs phy for work . She was hoping to get it done before Jun 17. I said I would pass message along to see if they can be put in somewhere before that date. 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 -Will send in tessalon perles for cough suppressant. -May continue OTC medications that she is currently taking. -Follow up if not improving. Follow up if symptoms worsen or fail to improve. documented in this encounter [facility] 09-11-2024 History of Presen t illness [...] Obstetric Comments Last pap smear date 2019 [employer] complaints: no Changes in healthsince last [...] 09/11/2024 3:03 PM documented in this encounter [facility] 09-04-2024 Miscellaneous Notes Formattin g of this note might be different from the original. Patient left a voicemail wanting test results from last week. Please call [phone]. Thank you. documented in this encounter [facility] 09-04-2024 Telephone encount er Note Patient left a voicemail wanting test results from last week. Please call [phone]. Thank you. 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 Tobacco Use Smoking status: Never Smokeless tobacco: [...] 30 min Stress: Stress Concern Present (05/30/2023) [employer] - Occupational Stress Questionnaire Feeling of Stress : To some extent Social Connections: Socially Integrated (05/30/2023) Social Connection and Isolation Panel [NHANES] Frequency of Communication with Friends and Family: Twice a week Frequency of Social Gatherings with Friends and Family: Once a week Attends Nondenominational Services: 1 to 4 times per year [...] giardia antigen; Future documented in this encounter [facility] 06-04-2024 History of Presen t illness [...] level: Not on file Occupational History 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 Tobacco Use Smoking status: Never Smokeless tobacco: Never Vaping Use Vaping status: Never Used Substance and Sexual Activity Alcohol use: Yes Comment: Socialdominicy, Caffeine intake: 1-2 cups per day coffee [...] 30 min Stress: Stress Concern Present (05/30/2023) [employer] - Occupational Stress Questionnaire Feeling of Stress : To some extent Social Connections: Socially Integrated (05/30/2023) Social Connection and Isolation Panel [NHANES] Frequency of Communication with Friends and Family: Twice a week Frequency of Social Gatherings with Friends and Family: Once a week Attends Nondenominational Services: 1 to 4 times per year [...] labs this June. documented in this encounter [facility] Evaluation note Diagnosis Other acne documented [...] Other fatigue [facility] Wellness examination- Primary Urinary frequency documented in this encounter [facility] Summary Purpose Family History No Family History Records FoundNo Family History Records FoundNo Family History Records Found Advance Directives No Advanced Directives Records FoundNo Advanced Directives Records FoundNo Advanced Directives Records Found Additional Source Comments INFORMATION SOURCE (unrecogn ized section and content) DATE CREATED AUTHOR 02/11/2021 [facility] DATE CREATED AUTHOR AUTHOR'S ORGANIZ ATION 09/23/2023 [facility] DATE CREATED AUTHOR AUTHOR'S ORGANIZ ATION 06/14/2025 [facility] Care Teams (unrecognized sec tion and content) Obstetrician And Gynaecologist Relationship Specialty Start Date End Date Lianna Carlisle MD [address] [place] [address] PCP - General Family Medicine 02/22/23 Lianna Carlisle MD [address] [place] [address] PCP - Medical [employer] 06/17/19 10/16/99 Obstetrician And Gynaecologist Relationship Specialty Start Date End Date Lianna Carlisle MD [address] [place] [address] PCP - General Family Medicine 02/22/23 Lianna Carlisle MD [address] [place] [address] PCP - [facility] [employer] 06/17/19 10/16/99 Obstetrician And Gynaecologist Relationship Specialty Start Date End Date Lianna Carlisle MD [address] [place] [address] PCP - General Family Medicine 02/22/23 Lianna Carlisle MD [address] [place] [address] PCP - [facility] [employer] 06/17/19 10/16/99 Obstetrician And Gynaecologist Relationship Specialty Start Date End Date Lianna Carlisle MD [address] [place] [address] PCP - General Family Medicine 02/22/23 Lianna Carlisle MD [address] [place] [address] PCP - [employer] 06/17/19 10/16/99 Obstetrician And Gynaecologist Relationship Specialty Start Date End Date Lianna Carlisle MD [address] [place] [address] PCP - General Family Medicine 02/22/23 Lianna Carlisle MD [address] [place] [address] PCP - [employer] 06/17/19 10/16/99 Obstetrician And Gynaecologist Relationship Specialty Start Date End Date Lianna Carlisle MD [address] [place] [address] PCP - General Family Medicine 02/22/23 Lianna Carlisle MD [address] [place] [address] PCP - [employer] 06/17/19 10/16/99 Obstetrician And Gynaecologist Relationship Specialty Start Date End Date Lianna Carlisle MD [address] [place] [address] PCP - General Family Medicine 02/22/23 Lianna Carlisle MD [address] [place] [address] PCP - [employer] 06/17/19 10/16/99 Obstetrician And Gynaecologist Relationship Specialty Start Date End Date Lianna Carlisle MD [address] [place] [address] PCP - General Family Medicine 02/22/23 Lianna Carlisle MD [address] [facility] [place] [address] PCP - Medical [employer] 06/17/19 10/16/99 Obstetrician And Gynaecologist Relationship Specialty Start Date End Date Lianna Carlisle MD [address] [facility] [place] [address] PCP - General Family Medicine 02/22/23 Lianna Carlisle MD [address] [facility] [place] [address] PCP - [employer] 06/17/19 10/16/99 Obstetrician And Gynaecologist Relationship Specialty Start Date End Date Lianna Carlisle MD PCP - General Family Medicine 02/22/23 Obstetrician And Gynaecologist Relationship Specialty Start Date End Date Lianna Carlisle MD PCP - General Family Medicine 02/22/23 Anival Bledsoe NP [address] [facility] [place] [address] PCP - [employer] 06/17/19 10/16/99 Obstetrician And Gynaecologist Relationship Specialty Start Date End Date Lianna Carlisle MD PCP - General Family Medicine 02/22/23 Anival Bledsoe NP [address] [facility] [place] [address] PCP - Medical [employer] 06/17/19 10/16/99 Reason for Visit (unrecogniz [...] loose stool. Pt states this is improving. Reason Comments Annual Exam FOR RECORDS PERTAINING TO PATIENTS WHO [...] BE BASED ON THE PRIMARY CLINICAL RECORDS. [employer] provides no warranty or guarantee of the accuracy or completeness of information in this document.
[2025-07-30 10:07] LABS: Hematocrit 39.7 % (36.0-48.0); Hemoglobin 13.5 g/dL (12.0-16.0); Immature Granulocytes Abs Auto 0.01 10^3/uL (0.00-0.03); Immature Granulocytes Pct Auto 0.2 % (0.0-0.5); Lymphocytes Absolute Auto 1.7 10^3/uL (1.2-3.8); Mean Corpuscular HGB Conc 34.0 g/dL (29.9-35.2); Mean Corpuscular Hemoglobin 31.3 pg (26.7-34.0); Mean Corpuscular Volume 92.1 fL (81.0-99.0); Platelet Count 169 10^3/uL (150-450); Red Blood Count 4.31 10^6/uL (4.20-5.40); White Blood Count 5.6 10^3/uL (4.0-11.0)
== END 2025-07-30 08:41 | disposition home or self-care (01) ==
LOC: LAB 08:43
PROVIDERS: PCP Nurse Practitioner Family; Visit Provider Emergency Medicine
DX: N95.9 Unspecified menopausal and perimenopausal disorder (principal)
CPT/HCPCS: 36415; 82627; 82642; 82670; 84402; 84403; 85025

== ENCOUNTER 2025-08-17 08:51 | Outpatient (OUT) | payer OTHER, SELFPAY ==
--- OUTSIDE RECORDS SUMMARY | 2025-08-17 08:55 | XMS_ITS | Encounter Summary ---
Author Organization [facility] Address [address] [place] [address] Care Team Providers Care Sharepoint Administrator Name Role Phone Helms Clarice J PATTERN LEASE INSPECTOR Unavailable [phone] Jesse Isabel MD Primary Care Provider [phone] Reason for Visit * ReasonOnset DateCommentsLab Digmbn5108/14/20251533Dtjhcenohxqoqr32/29/2025 Encounter Details DateTypeDepartmentCare Team (Latest Contact Info)Rlbedbjgwin60/29/2025Telephone General acute hospital Medicine [address] [place] [phone] Lisa Logan MA Lab Orders; Hyperlipidemia Social History Tobacco UseTypesPacks/DayYears UsedDateSmoking Tobacco: NeverSmokeless Tobacco: NeverAlcohol UseStandard Drinks/WeekCommentsYes0 (1 standard drink = 0.6 oz pure alcohol)Sociallly, Caffeine intake: 1-2 cups per day coffeeHumiliation, Afraid, Rape, and Kick questionnaireAnswerDate RecordedWithin the last year, have you been afraid of your partner or ex-partner?No05/30/2023Within the last year, have you been humiliated or emotionally abused in other ways by your partner or ex-partner?No05/30/2023Within the last year, have you been kicked, hit, slapped, or otherwise physically hurt by your partner or ex-partner?No05/30/2023Within the last year, have you been raped or forced to have any kind of sexual activity by your partner or ex-partner?No08/14/2023Social Connection and Isolation Panel AnswerDate RecordedIn a typical week, how many times do you talk on the phone with family, friends, or neighbors?Twice a week05/30/2023How often do you get together with friends or relatives?Once a week05/30/2023How often do you attend mosque or restorationist services?1 to 4 times per year05/30/2023o you belong to any clubs or organizations such as mosque groups, unions, fraternal or athletic alphonse ups, or school groups?Yes05/30/2023ttends Club or Organization MeetingsNot on file05/30/2023re you , , , , never , or living with a partner?Kozlqzm5005/30/2023UDIT-CAnswerDate RecordedQ1: How often do you have a drink containing alcohol?Monthly or less06/04/2024Q2: How many drinks containing alcohol do you have on a typical day when you are drinking?3 or Q3: How often do you have six or more drinks on one occasion?Never 06/04/2024Overall Financial Resource Strain (CARDIA)AnswerDate RecordedHow hard is it for you to pay for the very basics like food, housing, medical care, and heating?Not hard at all05/30/2023HQ-2AnswerDate RecordedPatient Health Questionnaire-2 Hefdy033[facility] [place] of Occupational Health - Occupational Stress QuestionnaireAnswerDate RecordedDo you feel stress - tense, restless, nervous, or anxious, or unable to sleep at night because yourmind is troubled all the time - these days?To some zdyvuu7405/30/2023Exercise Vital Sign AnswerDate RecordedDays of Exercise per WeekNot on file05/30/2023On average, how many minutes do you engage in exercise at this level?30 min05/30/2023Hunger Vital SignAnswerDate RecordedWithin the past 12 months, you worried that your food would run out before you got the money to buymore.Never true05/30/2023 Within the past 12 months, the food you bought just didn't last and you didn't have money to get more.Never true05/30/2023RAPARE - TransportationAnswerDate RecordedIn the past 12 months, has lack of transportation kept you from medical appointments or from getting medications?No05/30/2023In the past 12 months, has lack of transportation kept you from meetings, work, or from getting things needed for daily living?No05/30/2023Housing Stability Vital SignAnswerDate RecordedIn the last 12 months, was there a time when you were not able to pay the mortgage or rent on time?No05/30/2023In the last 12 months, how many places have you lived?In the last 12 months, was there a time when you did not have a steady place to sleep or slept in [facility] (including now)?No 05/30/2023CommentsNoSex and Gender InformationValueDate RecordedSex Assigned at EqqryZdmelp20/28/2023 10:56 AM EDTLegal VicBuugrw55/15/2023 6:53 PM EDTGender FkaunduxLwfrjq22/28/2023 10:56 AM EDTSexual OrientationStraight 05/13/2023 10:56 AM EDTOccupationIndustryJob Start DateJob End DateOTANot on fileNot on fileNot on filedocumented as of this encounter Miscellaneous Notes * Telephone Encounter - Gabriella Calero - 08/14/2025 10:31 AM EDT Patient called back and wanted the orders printed out. I printed and put at vest front presser. * Telephone Encounter - Lisa Logan MA - 08/14/2025 9:38 AM EDT LMOM for call back to notify office of where she would like lab order sent or if she wants to pick it up in the office. documented in this encounter Plan of Treatment DateTypeDepartmentCare Team (Latest Contact Info)Ppisyojtjdv85/08/2025 3:30 PM ESTOffice Visit [facility] [address] [place] [phone] Hortensia Fernandez, [facility] [address] [place] [address] 05/13/2026 9:00 AM EDTOffice Visit [facility] [address] [place] [phone] Clarice Helms NP [address] [facility] [place], [place] [phone] NameTypePriorityAssociated DiagnosesOrder ScheduleLipid panelLabRoutine Screening for cardiovascular condition Wellness examination Expected: 08/14/2025 (Approximate), Expires: 08/14/2026omprehensive metabolic panelLabRoutine Hypertension, unspecified type Screening for cardiovascular condition Wellness examination Expected: 08/14/2025 (Approximate), Expires: 08/14/2026documented as of this encounter Visit Diagnoses Diagnosis Lipid screening Screening for lipoid disorders Hypertension, unspecified type Screening for cardiovascular condition Screening for other and unspecified cardiovascular conditions Wellness examination documented in this encounter Additional Health Concerns AssessmentNoted TimePHQ-9 Depression Total Score: 10:00 AM EDT documented as of this encounter Care Teams Team MemberRelationshipSpecialtyStart DateEnd Date Clarice Helms, JONAS [address] [place] [address] PCP - Medical [place] [employer]06/17/1912 Jesse Isabel MD [address] [place], [place] [id number] PCP - GeneralFamily Kpyiuzhg00/21/25documented as of this encounter
--- OUTSIDE RECORDS SUMMARY | 2025-08-17 08:55 | XMS_ITS | Clinical Summary ---
Author Organization [facility] Address [address] [place] [address] Care Team Providers Care Landscape Drafter Name Role Phone Clarice Helms EDGE PLUGGER Unavailable [phone] Jesse Isabel MD Primary Care Provider [phone] Allergies No known active allergies Medications MedicationSigDispense QuantityRefillsLast FilledStart DateEnd DateStatus progesterone 100 MG capsule Take 100 mg by mouth in the morning. Pt unsure of dose.Active Multiple Vitamins-Minerals (MULTIVITAMIN ADULT, MINERALS, PO) Take by mouth.Active spironolactone (Aldactone) 100 MG tablet Indications:Other acneTake 1 tablet (100 mg) by mouth in the morning. 90 tablet 08/29/2024ctive tretinoin (Retin-A) 0.05 % cream APPLY TO AFFECTED AREA DAILY AT BEDTIME OZPFULFPF50/18/2024ctive Testosterone 20 % cream LOW DOSEActive Active Problems No known active problems Encounters DateTypeDepartmentCare SpowMebczvfqbsr67/29/2025Telephone [facility] [address] [place] [address] Lisa Logan MA Lab Orders; Leyhxzeytqrxpu35/27/2025 11:30 AM EDTOffice Visit [facility] [address] [facility] [place] [address] Clarice Helms NP Wellness examination (Primary Dx); Urinary ocedtsmsj14/27/2025amboo flowsheet [facility] [address] [facility] [address] Clarice Helms NP 06/12/20255189Ibwsvu77/14/2025Telephone [facility] [address] [facility] [address] Lianna Calero MD 05/30/2025Telephone [facility] [address] [facility] [place] [address] Lianna Calero MD from Last 3 Months Immunizations ImmunizationAdministration DatesNext CxfJWW5904/30/1991,02/17/1987,04/08/1986, 02/04/1986,1985Hep B, adult10/14/2005,05/17/2005,04/14/2005Influenza, injectable, MDCK, preservative free, deuxzmfklntu02/04/2019Influenza, injectable, jwjmakvmpqtw21/22/2021,08/21/2014Influenza, injectable, quadrivalent, preservative free08/06/2020,08/17/2019,08/26/2018,07/21/2016, 07/14/2015Influenza, seasonal, aclddgwtwq76/02/2017,07/16/2015MMR04/03/1998, 02/17/1987OPV04/30/1991,02/17/1987,02/04/1986,1985Td (adult), unspecified 04/03/1998Tdap11/29/2017 Family History Medical HistoryRelationNameCommentsHeart diseaseMaternal GrandfatherHypertension Maternal GrandfatherMeniere's diseaseMotherDiabetesPaternal GrandfatherHeart diseasePaternal GrandfatherHypertensionPaternal GrandfatherOvarian cancer Paternal GrandmotherThyroid diseaseSisterRelationNameStatusCommentsFather DeceasedMaternal GrandfatherMotherAlivePaternal GrandfatherPaternal Grandmother Sister2 Social History Tobacco UseTypesPacks/DayYears UsedDateSmoking Tobacco: NeverSmokeless [...] of sexual activity by your partner or ex-partner?No05/30/2023Social Connection and Isolation Panel AnswerDate RecordedIn a typical week, how many times do you talk on the phone with family, friends, or neighbors?Twice a week05/30/2023How often do you get together with friends or relatives?Once a week05/30/2023How often do you attend oriental orthodox or taoism services?1 to 4 times per year05/30/2023o you belong to any clubs or organizations such as oriental orthodox groups, unions, fraUserTesting or athletic alphonse ups, or school groups?Yes05/30/2023ttends Club or Organization MeetingsNot on file05/30/2023re you , , , , never , or living with a partner?Drludfr8205/30/2023UDIT-CAnswerDate RecordedQ1: How often do you have a [...] heating?Not hard at all05/30/2023HQ-2AnswerDate RecordedPatient Health Questionnaire-2 Tssiq023Finamerican fork hospital [facility] of Occupational Health - Occupational Stress QuestionnaireAnswerDate RecordedDo you feel stress - tense, restless, nervous, or anxious, or unable to sleep at night because yourmind is troubled all the time - these days?To some xgwikj6605/30/2023Exercise Vital Sign AnswerDate RecordedDays of Exercise per [...] steady place to sleep or slept in [facility] (including now)?No 05/30/2023CommentsNoSex and Gender InformationValueDate RecordedSex Assigned at NqvsmSpugxe76/28/2023 10:56 AM EDTLegal GvoLchnqv97/15/2023 6:53 PM EDTGender FymlzceiVhgmbz00/28/2023 10:56 AM EDTSexual OrientationStraight 05/13/2023 10:56 AM EDTOccupationIndustryJob Start DateJob End DateOTANot on fileNot on fileNot on file Last Filed Vital Signs Vital SignReadingTime TakenCommentsBlood Luvulchg869/72006/12/2025 11:14 AM EDT Vscng216206/12/2025 11:14 AM VASCosfwbxwckz85.4 ??C (97.6 ??F)06/12/2025 11:14 AM EDTRespiratory Rate--Oxygen Vertmjshpy47%06/12/2025 11:14 AM EDTInhaled Oxygen Concentration--Blgshi10.5 kg (155 lb 6.4 oz)06/12/2025 11:14 AM TGFEaoroi179.7 cm (5' 8 )06/12/2025 11:14 AM EDTBody Mass Index23.63006/12/2025 11:14 AM EDT Plan of Treatment DateTypeDepartmentCare Team (Latest Contact Info)Ypitwhluzvm34/08/2025 3:30 PM ESTOffice Visit [facility] [address] [place] [address] Hortensia Fernandez CNM [address] [place], [place] [phone] 05/13/2026 9:00 AM EDTOffice Visit [facility] Family Medicine [address] [place] [address] Clarice Helms, EDGE PLUGGER [address] [place], [place] [phone] Health MaintenanceDue DateLast DoneCommentsVaricella Vaccines (1 of 2 - 13+ 2- dose series)1998HPV Vaccines (1 - 3-dose SCDM series)2012COVID-19 Vaccine ( season), 12/10/2020Influenza Vaccine (#1)/, 08/06/2020, 08/20/2019, Additional history exists HPV/Wephbf87//2Cervical Cancer Rnvqcjjpc78/26/2027Pap Smear /4DTaP/Tdap/Td Vaccines (7 - Td or Tdap), 04/03/1998, 04/30/1991, Additional history existsIPV VaccinesCompleted 04/30/1991, 02/17/1987, 02/04/1986, Additional history existsMMR Vaccines Damkzjkru78/18/1998, 02/17/1987Hepatitis B VctzmxwzFkvefabif52/29/2005, 05/17/2005, 04/14/2005HIB VaccinesAged OutNo longer eligible based on patient's age to complete this topicHepatitis A VaccinesAged OutNo longer eligible based on patient's age to complete this topicMeningococcal B VaccineAged OutNo longer eligible based on patient's age to complete this topicMeningococcal VaccineAged OutNo longer eligible based on patient's age to complete this topicPneumococcal Vaccine: Pediatrics (0 to 5 Years) and At-Risk Patients (6 to 64 Years)Aged Out No longer eligible based on patient's age to complete this topicRotavirus VaccinesAged OutNo longer eligible based on patient's age to complete this topic Procedures Procedure NamePriorityDate/TimeAssociated DiagnosisCommentsPOCT URINALYSIS LSRHTPKXEewpdae25/27/2025 12:00 PM EDT Urinary frequency THINPREP IMAGING PAP AND HPV DNA REFLEX HPV 16,09Jukwmmz00/26/2024 4:16 PM EST Screening for cervical cancer THINPREP PAP AND HPV MRNA E6/E7 REFLEX HPV 16,18/88Qilkrom14/05/2022 from Last 3 Months or Most Recently Relevant to Health Maintenance Results * POCT Urinalysis dipstick (06/12/2025 12:00 PM EDT)ComponentValueRef RangeTest MethodAnalysis TimePerformed AtPathologist SignatureColor, UALight Yellow Clarity, UAClearGlucose, UANegativeNegative - 1999(110) ++++ mg/dLBilirubin, UANegativeNegative - 4(70) +++ mg/dLKetones, UANegativeNegative - 160(16) ++++ mg/dLSpec Grav, UA1.0051 - 1.03Blood, UANegativeNegative - 50 Hi/mcLpH, UA8.0 5 - 9Protein, UANegativeNegative - 2000(20) ++++ mg/dLUrobilinogen, UA1.00.2 - 12 mg/dLLeukocytes, UANegativeNegative - 500+++ Irwin/mcLNitrite, UANegative Negative - PositiveSpecimen (Source)Anatomical Location / LateralityCollection Method / VolumeCollection TimeReceived AixaJemko10/27/2025 12:00 PM EDT Narrative Authorizing ProviderResult TypeResult StatusSaranimeme Wheelre Analia NPPOINT OF CARE TEST ENTER/EDIT ORDERABLESFinal Result * THINPREP IMAGING PAP AND HPV DNA REFLEX HPV 16,18 (09/11/2024 4:16 PM EST) ComponentValueRef RangeTest MethodAnalysis TimePerformed AtPathologist SignatureCLINICAL INFORMATIONQUESTComment:None givenLMPQUESTComment:NONE GIVEN PREV. PAPQUESTComment:NONE GIVENPREV. BXQUESTComment:NONE GIVENSOURCEQUEST Comment:None givenSTATEMENT OF ADEQUACYQUESTComment: Satisfactory for evaluation. Endocervical/transformation zone component present. INTERPRETATION/RESULTQUESTComment: Cytology Results: Negative for intraepithelial lesion or malignancy. COMMENTQUESTComment: This Pap test has been evaluated with computer assisted technology. CYTOTECHNOLOGISTQUESTComment: SPS, ??CT(ASCP) CT Screening Location: ??[facility] [place], [address] [place] [address] ??[id number] REVIEW CYTOTECHNOLOGISTQUESTComment: LXT, CT(ASCP) CT screening location: [place] [address]. (ALWAYS MESSAGE)QUESTComment: EXPLANATORY NOTE: The Pap is a screening test for cervical cancer. It is not a diagnostic test and is subject to false negative and false positive results. It is most reliable when a satisfactory sample, regularly obtained, is submitted with relevant clinical findings and history, and when the Pap result is evaluated along with historic and current clinical information. HPV DNA, HIGH RISK, CERVICALNot DetectedNOT DETECTEDQUESTComment: Not Detected High Risk HPV types (16,18,31,33,35,39,45,51,52, 56,58,59,66,68) were not detected. Other HPV types which cause anogenital lesions may be present. The significance of the other types of HPV in malignant processes has not been established. Methodology: Real Time PCR Specimen (Source)Anatomical Location / LateralityCollection Method / Volume Collection TimeReceived TimeSwabCervical swab / Xnifgzo6209/11/2024 4:16 PM EST 09/12/2024 3:17 AM EST Narrative Resulting Agency Comment Performing Organization Information ?Site ID: [facility] ?Name[place] [place] ?Address: [address] [place] [address] [place], [place] ?Director: Jose Hodgson M.D.,PhD ?Site ID: [id number] ?Name: [facility] ?Address: [address] [place] [address], [address] [place] [phone] ?Director: Boo Soni MD Authorizing ProviderResult TypeResult StatusValerie Sandra Fernandez CNMLAB CYTOLOGY ORDERABLESFinal ResultPerforming OrganizationAddressCity/State/ZIP CodePhone Number [facility] * THINPREP PAP AND HPV MRNA E6/E7 REFLEX HPV 16,18/45 (05/21/2022)ComponentValue Ref RangeTest MethodAnalysis TimePerformed AtPathologist SignatureCLINICAL INFORMATION:None givenNOMS LEGACY EXTERNAL LABLMP:None givenNOMS LEGACY EXTERNAL LABPREV. PAP:None givenN[facility]S LEGACY EXTERNAL LABPREV. BX:None given [facility] LABSOURCE:None givenN[facility] LEGACY EXTERNAL LABSTATEMENT OF ADEQUACY:SEE COMMENTNOMS LEGACY EXTERNAL LABComment: Satisfactory for evaluation. Endocervical/transformation zone component present. INTERPRETATION/RESULT:Negative for intraepithelial lesion or malignancy.[facility] LABCYTOTECHNOLOGIST:SEE COMMENTNOMS LEGACY EXTERNAL LABComment: IDANIA, CT(ASCP) CT screening location: [place] [address]. REVIEW TANK FARM GAUGER:SEE COMMENTNOMS LEGACY EXTERNAL LABComment: KALEY CT(ASCP) CT screening location: [place] [address]. COMMENTSEE COMMENTNOMS LEGACY EXTERNAL LABComment: EXPLANATORY NOTE: The Pap is a screening test for cervical cancer. It is not a diagnostic test and is subject to false negative and false positive results. It is most reliable when a satisfactory sample, regularly obtained, is submitted with relevant clinical findings and history, and when the Pap result is evaluated along with historic and current clinical information. HPV MRNA E6/E7Not DetectedNot DetectedNOMS LEGACY EXTERNAL LABComment: Methodology: Test Examiner-Mediated Amplification This assay detects E6/E7 viral messenger RNA (mRNA) from 14 high-risk HPV types (16,18,31,33,35,39,45,51,52,56,58,59,66,68). Cervical sources are required for HPV testing. If a vaginal source from a patient who has had a total hysterectomy with removal of cervix was submitted, please contact the testing laboratory for alternative testing options. For additional information, please refer to http://education.[employer]/faq/HTP019r3 (This link if provided for information/ educational purposes only.) NO COLLECTION DATE RECEIVED. WE HAVE USED THE DATE THE SPECIMEN WAS RECEIVED BY THIS LABORATORY THE COLLECTION DATE. IF THIS IS INCORRECT, PLEASE CONTACT CLIENT SERVICES. PHONE NUMBER: [phone] Specimen (Source)Anatomical Location / LateralityCollection Method / Volume Collection TimeReceived Time05/21/2022 Narrative Authorizing ProviderResult TypeResult StatusHortensia Fernandez CNMECW LABSFinal ResultPerforming OrganizationAddressCity/State/ZIP CodePhone Number [facility] from Last 3 Months or Most Recently Relevant to Health Maintenance Insurance Care Teams Team MemberRelationshipSpecialtyStart DateEnd Date Clarice Helms NP [address] [place] [address] PCP - Medical [place] [employer]06/17/1912 Jesse Isabel MD [address] [place] [address] PCP - Generalmi Eyfpuumr55/21/25
--- OUTSIDE RECORDS SUMMARY | 2025-08-17 08:55 | XMS_ITS | CCD ---
Author Organization [facility] Care Team Providers Care Pest Control Technician Name Role Phone DR LIANNA CARLISLE Admitting Unavailable ORESTES, DR LIANNA Woodward Attending Unavailable EFFIE TRIMBLE Consulting Unavailable EFFIE TRIMBLE Attending Unavailable ORESTES, DR LIANNA Woodward Primary Care Unavailable EFFIE TRIMBLE Admitting Unavailable NHAN DIA Attending Unavailable Lianna Carlisle MD Primary Care Provider Lianna Carlisle MD Unavailable [phone] Lianna Carlisle MD Primary Care Provider Lianna Carlisle MD Unavailable Lianna Carlisle MD Primary Care Provider Anival Bledsoe NP Unavailable ANIVAL BLEDSOE Attending Unavailable ANIVAL BLDESOE Attending Unavailable RENEE RAMOS Attending Unavailable DEMARCO FERNANDEZ Attending Unavailable Medications Current Medications MedicationDrug Class(es)DatesSig (Normalized)Sig (Original)azithromycin 250 mg oral tablet (2 sources)Macrolide AntimicrobialStart: 12-10-2024 End: 93-50-1971hrfd 2 tablets by mouth once daily, then take 1 tablet by mouth once dailyazithromycin (Zithromax) 250 MG tablet Indications: Subacute cough Take 2 tablets (500 mg) by mouthDaily for 1 day, THEN 1 tablet (250 mg) Daily for 4 days. 6 tablet 12/10/2024 12/15/2024 Activebenzonatate 100 mg oral capsule (2 sources)Non-narcotic AntitussiveStart: 12-10-2024 End: 82-03-1425hsae 1 capsule by mouth three times daily as needed for cough benzonatate (Tessalon Perles) 100 MG capsule Indications: Subacute cough Take 1 capsule (100 mg) bymouth 3 (three) times a day as needed for cough for up to 10 days Do not crush or chew. 30 capsule 12/10/2024 12/20/2024 Activeketoconazole 20 mg/ml medicated shampoo (14 sources)Azole AntifungalStart: 08-02-2024 End: 20-05-0058pbiwmkkcocax (NIZOral) 2 % shampoo APPLY TO AFFECTED AREAS ON SHOULDERS. LEAVE ON FOR 1-2 MINUTES THEN RINSE OFF 08/02/2024 06/12/2025 DiscontinuedMultiple Vitamins-Minerals (MULTIVITAMIN ADULT, MINERALS, PO) (19 sources)Multiple Vitamins-Minerals (MULTIVITAMIN ADULT, MINERALS, PO) Take by mouth. Activeprogesterone 100 mg oral capsule (19 sources)Progesteronetake 1 capsule by mouth in the morningprogesterone 100 MG capsule Take 100 mg by mouth in the morning. Pt unsure of dose. Active spironolactone 100 mg oral tablet (20 sources)Aldosterone AntagonistStart: 00-59-3553opbh 1 tablet by mouth in the morningspironolactone (Aldactone) 100 MG tablet Indications: Other acne Take 1 tablet (100 mg) by mouth inthe morning. 90 tablet 08/29/2024 ActiveStart: 03-28-2024 End: 00-90-5572gchh 1 tablet by mouth once daily in the morningspironolactone (Aldactone) 100 MG tablet Indications: Other acne TAKE 1 TABLET BY MOUTH EVERY DAY IN THE MORNING 90 tablet 03/28/2024 08/13/2024 Discontinued (Reorder) Testosterone (14 sources)AndrogenTestosterone 20 % cream LOW DOSE Activetretinoin 0.5 mg/ml topical cream (14 sources)RetinoidStart: 97-93-3149pmurjmtsz (Retin-A) 0.05 % cream APPLY TO AFFECTED AREA DAILY AT BEDTIME TOLERATED 08/03/2024 Active Problems Active Problems Problem ClassificationProblemDateDocumented DateEpisodic/ChronicAbdominal pain (2 sources)Generalized abdominal pain; Translations: [Generalized abdominal pain]18-52-6352ZrhmgjctNpdqhbre reactions (2 sources)Non-celiac gluten sensitivity; 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] 57-46-1564SdhbvdxJxebcdtzhrvvs symptoms and ill-defined conditions (2 sources)Increased frequency of urination; Translations: [Frequency of micturition]15-12-7808JjipbpywXvbcnln and fatigue (2 sources)Fatigue; Translations: [Other fatigue]81-87-0286MtdfcyobAzfgg endocrine disorders (4 sources)Polycystic ovarian syndrome; Translations: [POLYCYSTIC OVARIAN SYNDROME]Onset: 30-95-7797AmwnlnyNlxxx inflammatory condition of skin (2 sources)Pruritus ani; Translations: [Pruritus ani]89-31-6820EuiahkadCsccv lower respiratory disease (2 sources)Cough; Translations: [Subacute cough]19-50-7891WfrxhpwoHjouu screening for suspected conditions (not mental disorders or infectious disease) (2 sources)Cancer cervix screening status; Translations: [Encounter for screening for malignant neoplasm of cervix]57-71-4439EttoekmtDyfim skin disorders (1 source)Acne; Translations: [Other acne]42-58-2930Pktvctzi Past or Other Problems Problem ClassificationProblemDateDocumented DateEpisodic/ChronicMood disorders (19 sources)Mood disordersOnset: Results Test NameValueInterpretationReference RangeFacilityUrinalysis macro (dipstick) panel (U)on 91-56-0612Samowzytx, UANegativeNegative - 4(70) +++ mg/dLNOMS HealthcareBlood, UANegativeNegative - 50 Hi/mcLNOMS HealthcareClarity, UAClear NOMS HealthcareColor, UALight YellowNOMS HealthcareGlucose, UANegativeNegative - 1999(110) ++++ mg/dLNOMS HealthcareInterpretation and review of laboratory resultsNormalNOMS HealthcareKetones, UANegativeNegative - 160(16) ++++ mg/dLNOMS HealthcareLeukocytes, UANegativeNegative - 500+++ Irwin/mcLNOMS HealthcareNitrite, UANegativeNegative - PositiveNOMS HealthcarepH, UA85 - 9NOMS HealthcareProtein, UANegativeNegative - 2000(20) ++++ mg/dLNOMS HealthcareSpec Grav, UA1.0051 - 1.03NOMS HealthcareUrobilinogen, UA1.00.2 - 12 mg/dLNOMS HealthcareNOMS HealthcareALL CBC WITH AUTO DIFFon 93-02-6435BOOEMHLDK ABSOLUTE PWBP5CVFN HealthcareBasophils/100 WBC (Bld)0.4 %0.2 - 2.0 %NOMS HealthcareEosinophils/100 WBC (Bld)1.2 %0.9 - 7.0 %NOMS HealthcareErythrocyte distribution width (RBC) [Ratio]11.5 %11.0 - 15.0 %NOMS HealthcareHematocrit (Bld) [Volume fraction]42.4 %36.0 - 48.0 %NOMSac-Osage HospitalHemoglobin (Bld) [Mass/Vol]14.2 g/dL12.0 - 16.0 g/dLNOSSM RehabIMMATURE GRANULOCYTES ABS AUTO0.01NOSSM RehabImmature granulocytes/100 WBC (Bld)0.2 %0.0 - 0.5 %NOMSac-Osage HospitalLYMPHOCYTES ABSOLUTE AUTO1.5NOSSM RehabLymphocytes/100 WBC (Bld)28.1 %20.5 - 60.0 %[facility] ServicesH (RBC) [Entitic mass]30.9 pg26.7 - 34.0 pgHeartland Behavioral Health ServicesHC (RBC) [Mass/Vol]33.5 g/dL29.9 - 35.2 g/dLMissouri Baptist Hospital-SullivanMCV (RBC) [Entitic vol]92.2 fL 81.0 - 99.0 fLMissouri Baptist Hospital-SullivanMONOCYTES ABSOLUTE AUTO0.4NOSSM Rehab Monocytes/100 WBC (Bld)7.7 %1.7 - 12.0 %NOMSac-Osage HospitalNEUTROPHILS ABSOLUTE AUTO 3.3NOMS [facility] CenterNeutrophils/100 WBC (Bld)62.4 %43.0 - 75.0 %[facility] Platelet mean volume (Bld) [Entitic vol]9.7 fL9.5 - 13.5 fLMissouri Baptist Hospital-SullivanTB EO #0.1NOMS [facility] CenterTB TYM887EIHI [facility] RBC4.6NOMS [facility] WBC5.2 NOMS [facility] Medical CenterCLINISYNCNOMS HealthcareLaboratory - Cytologyon 09-18-2024 Procurement Officer Cyto stain Nom (Cvx/Vag) [ID]NOMS HealthcareComment on above:SPS, CT(ASCP) CT Screening Location: [place] [address] LXT, CT(ASCP) CT screening location: [place] [address]. Cytology study comment Cyto stain Vamshi (Cvx/Vag) [Interp]NOMS HealthcareComment on above:This Pap test has been evaluated with computer assisted technology. Microscopic observation Cyto stain Nom (Cvx)NOMS HealthcareComment on above: Cytology Results: Negative for intraepithelial lesion or malignancy. Specimen source Cyto stain Nom (Cvx/Vag)NOMS HealthcareComment on above:None givenStatement of adequacy Cyto stain (Cvx/Vag) [Interp]NOMS HealthcareComment on above:Satisfactory for evaluation. Endocervical/transformation zone component present. Laboratory - Microbiology and Antimicrobial susceptibilityon 75-94-5288HUX 16+18+31+33+35+39+45+51+52+56+58+59+66+68 DNA TAMMY+probe Ql (Cvx)Not detectedNOT DETECTEDNOMS HealthcareComment on above:Not Detected High Risk HPV types (16,18,31,33,35,39,45,51,52, 56,58,59,66,68) were not detected. Other HPV types which cause anogenital lesions may be present. The significance of the other types of HPV in malignant processes has not been established. Methodology: Real Time PCR No Panel Informationon 09-18-2024(ALWAYS MESSAGE)NOMS HealthcareComment on above:EXPLANATORY NOTE: The Pap is a screening test for cervical cancer. It is not a diagnostic test and is subject to false negative and false positive results. It is most reliable when a satisfactory sample, regularly obtained, is submitted with relevant clinical findings and history, and when the Pap result is evaluated along with historic and current clinical information. Clinical informationNOMS HealthcareComment on above:None givenDate of previous biopsyNOMS HealthcareComment on above:NONE GIVENDate of previous PAP smearNOMS HealthcareComment on above:NONE GIVENLast menstrual period start dateNOMS HealthcareComment on above:NONE GIVENPerforming Organization Information Site ID: AMD Name: [facility]Fawad WrightKyle [place] Address: [address] [place] [address] Dr Wright, [place] Director: Jose Hodgson M.D.,PhD Site ID: [id number] Name: [facility] [employer] [facility] Address: Deacon Ramesh , [address] [place] [id number] Director: Boo Soni MDSloop Memorial HospitalALL CBC WITH AUTO DIFFon 02-35-1955TADXFDLTY ABSOLUTE AUTO0.0NOGA HealthcareBasophils/100 WBC (Bld)0.2 % 0.2 - 2.0 %NOMSac-Osage HospitalEosinophils/100 WBC (Bld)3.4 %0.9 - 7.0 %[facility]-SullivanErythrocyte distribution width (RBC) [Ratio]11.5 %11.0 - 15.0 %[facility]-SullivanHematocrit (Bld) [Volume fraction]40.7 %36.0 - 48.0 %[facility] Hemoglobin (Bld) [Mass/Vol]13.5 g/dL12.0 - 16.0 g/dLMissouri Baptist Hospital-SullivanIMMATURE GRANULOCYTES ABS AUTO0.00NOSSM RehabImmature granulocytes/100 WBC (Bld)0.0 % 0.0 - 0.5 %[facility]-SullivanLYMPHOCYTES ABSOLUTE AUTO1.5NOMS [facility] Lymphocytes/100 WBC (Bld)36.0 %20.5 - 60.0 %[facility] ServicesH (RBC) [Entitic mass]30.5 pg26.7 - 34.0 pgHeartland Behavioral Health ServicesHC (RBC) [Mass/Vol]33.2 g/dL29.9 - 35.2 g/dLHeartland Behavioral Health ServicesV (RBC) [Entitic vol]92.1 fL81.0 - 99.0 fLMissouri Baptist Hospital-SullivanMONOCYTES ABSOLUTE AUTO0.3NOSSM RehabMonocytes/100 WBC (Bld)7.2 % 1.7 - 12.0 %[facility]SullivanNEUTROPHILS ABSOLUTE AUTO2.2NOM[facility] Healthcare Neutrophils/100 WBC (Bld)53.2 %43.0 - 75.0 %[facility]-SullivanPlatelet mean volume (Bld) [Entitic vol]10.0 fL9.5 - 13.5 fLMissouri Baptist Hospital-SullivanTB EO #0.1NOMS Healthcare TBH CPH305APONSSM RehabTB RBC4.42NOMS [facility] WBC4.1NOMS [facility] HealthcareSURGICAL PATH REPORTon [id number] PATH REPORT [facility] Department of Pathology [address] [place] [address] [phone] Name: KRYSTINA BLEDSOE : 1985 [facility] [id number] Number: Gender Female [facility] : n: Admit 38 years Attending NHAN DIA Age: Provider: Ordering NHAN DIA Provider: Consulti Surgical Pathology Report ng: ACCESSION: COLLECTED DATE/TIME: RECEIVED DATE/TIME: PATHOLOGIST: [id number] 09/16/2023 10:20 EST 09/19/2023 13:49 SEFERINO BRAXTON MD, ZACKARY GOSS Final Diagnosis Report for [employer], [place] BILATERAL FALLOPIAN TUBES, BILATERAL SALPINGECTOMY: - [...] are serially sectioned in a transverse manner. Pricer sections are submitted under the following designations: #1 - first described fallopian tube #2 - second described fallopian tube BRIGHT/frances ____ Print 09/21/2023 08:50 EST Number: Date/Time: [facility] Department of Pathology [address] [place] [address] Name: KRYSTINA BLEDSOE : 1985 [facility] [id number] Number: Gender Female Roland MARLOW XENIA : n: Admit 38 years Attending NHAN DIA Age: Provider: Ordering NHAN DIA Provider: Consulti Surgical Pathology Report ng: ACCESSION: COLLECTED DATE/TIME: RECEIVED DATE/TIME: PATHOLOGIST: [id number] 09/16/2023 10:20 EST 09/19/2023 13:49 EST FOX ALLEN, ZACKARY GOSS Gross Description 09/19/2023 Microscopic Diagnosis The final diagnosis is based on a microscopic exam of outside industrial sales representative sections. Codes CPT CODE: 42230 ____ Print 09/21/2023 08:50 EST Number: Date/Time: [facility] HospitalComment on above:Performed By: #### [id number] #### [facility] Services [address] [place] [address] [employer] Developer: Branden Zhao MDTESTOSTERONE, FREE,DIRECT, TOTALon 66-75-8819Jyma Testosterone(Direct)0.6 pg/mLNormal0.0-4.2The [facility] Comment on above:Result Comment: Performed at: BNPerformed By: #### TESTFRD #### [facility] [address] [place] [address] Awa KarenTestosterone [Mass/Vol]14 ng/dLNormal8-48The [facility] Comment on above:Result Comment: Performed at: CBPerformed By: #### TESTFRD #### [facility] [address] [place] [address] Awa KarenZINC SERUM OR PLASMAon 03-14-6538Tadz, Plasma or Yakga825 ug/dL Nhjduj05-933Wqg [facility] HospitalComment on above:Result Comment: Detection Limit = 5 . Please note reference interval changePerformed By: #### LBCLH #### [facility] [address] [place] [address] Awa KarenVIT D 1 25 DIHYDROXYon 66-80-2933Igdrsphciw(1,25 di-OH Vit D)47.3 pg/cNTpngps88.9-79.3The [facility] HospitalComment on above:Performed By: #### [id number] #### [facility] [address] [place] [address] Awa KarenDHEA-SULFATEon 70-36-6109ZRNI-Pepznog26.0 ug/fJFaouig45.3-279.2The [facility] HospitalComment on above:Performed By: #### LBCLH #### [facility] [address] [place] [address] Awa KarenFSHon 24-67-5242GDF8.5 mIU/mLNormalRiverside Methodist HospitalComment on above:Result Comment: Adult Female: Follicular phase 3.5 - 12.5 Ovulation phase 4.7 - 21.5 Luteal phase 1.7 - 7.7 Postmenopausal 25.8 - 134.8Performed By: #### LBCLH #### [facility] [address] [place] [address] Awa KarenLUTEINIZING HORMONE (LH)on 21-69-8637WF5.8 mIU/mLNormalRiverside Methodist HospitalComment on above:Result Comment: Adult Female: Follicular phase 2.4 - 12.6 Ovulation phase 14.0 - 95.6 Luteal phase 1.0 - 11.4 Postmenopausal 7.7 - 58.5Performed By: #### LBCLH #### [facility] [address] [place] [address] Awa KarenPROLACTINon 96-57-4487Ipcnrtenj5.7 ng/mLNormal4.8-23.3The [facility] HospitalComment on above:Performed By: #### PROLAC #### [facility] [address] [place] [address] Awa KarenCBC AUTO DIFFon 83-67-8110SMWZ #0.0 103/ulNormal0.0-0.1The [facility] HospitalComment on above:Performed By: #### CBC #### [facility] [address] [place] [address] Awa KarenBasophils/100 WBC (Bld)0.2 %Normal0.2-2.0The [facility] Comment on above:Performed By: #### CBC #### [facility] [address] [place] [address] Awa KarenEO #0.0 103/ulNormal0.0-0.7The [facility] HospitalComment on above: Performed By: #### CBC #### [facility] [address] [place] [address] Awa KarenEosinophils/100 WBC (Bld)1.0 %Normal0.9-7.0The [facility] Comment on above:Performed By: #### CBC #### [facility] [address] [place] [address] Awa KarenErythrocyte distribution width (RBC) [Ratio]11.2 %Nzvawj72.0-15.0The [facility] HospitalComment on above:Performed By: #### CBC #### [facility] [address] [place] [address] Awa KarenHematocrit (Bld) [Volume fraction]42.3 %Swdiuc95.0-48.0The [facility] HospitalComment on above:Performed By: #### CBC #### [facility] [address] [place] [address] Awa KarenHemoglobin (Bld) [Mass/Vol]14.4 g/rLMfedck60.0-16.0The [facility] HospitalComment on above:Performed By: #### CBC #### [facility] [address] [place] [address] Awa FonsecaenIG #0.01 10e3/ulNormal0.00-0.03The [facility] HospitalComment on above:Performed By: #### CBC #### [facility] [address] [place] [address] Awa FonsecaenIG %0.2 %Normal0.0-0.5The [facility] HospitalComment on above: Performed By: #### CBC #### [facility] [address] [place] [address] Awa FonsecaenLYMPH #1.6 103/ulNormal1.2-3.8The [facility] HospitalComment on above: Performed By: #### CBC #### [facility] [address] [place] [address] Awa FonsecaenLymphocytes/100 WBC (Bld)39.3 %Hddmvd05.5-60.0The [facility] Comment on above:Performed By: #### CBC #### [facility] [address] [place] [address] Awa KarenMANUAL DIFF REQNONormalThe [facility] HospitalComment on above: Performed By: #### CBC #### [facility] [address] [place] [address] Awa KarenH (RBC) [Entitic mass]30.6 ydVayivf19.7-34.0The [facility] Comment on above:Performed By: #### CBC #### [facility] [address] [place] [address] Awa KarenMCHC (RBC) [Mass/Vol]34.0 g/kBHmwkgc08.9-35.2[facility] Comment on above:Performed By: #### CBC #### [facility] [address] [place] [address] Awa KarenMCV (RBC) [Entitic vol]90.0 hWGehrvo30.0-99.0The [facility] Comment on above:Performed By: #### CBC #### [facility] [address] [place] [address] Awa KarenMONO #0.3 103/ulNormal0.3-0.8The [facility] HospitalComment on above: Performed By: #### CBC #### [facility] [address] [place] [address] Awa KarenMonocytes/100 WBC (Bld)6.7 %Normal1.7-12.0The [facility] Comment on above:Performed By: #### CBC #### [facility] [address] [place] [address] Awaroselyn FonsecaenNEUT #2.1 103/ulNormal1.4-6.5The [facility] HospitalComment on above: Performed By: #### CBC #### [facility] [address] [place] [address] Awa KarenNeutrophils/100 WBC (Bld)52.6 %Lyksdh07.0-75.0The [facility] Comment on above:Performed By: #### CBC #### [facility] [address] [place] [address] Awa KarenPlatelet mean volume (Bld) [Entitic vol]9.3 fLCritically low9.5-13.5 The [facility] HospitalComment on above:Performed By: #### CBC #### [facility] [address] [place] [address] Awa TubpaEMS150 103/jkGrwhrj233-430Tdc [facility] HospitalComment on above: Performed By: #### CBC #### [facility] [address] [place] [address] Awa KarenRBC4.70 106/ulNormal4.20-5.40The [facility] HospitalComment on above: Performed By: #### CBC #### [facility] [address] [place] [address] Awa KarenWBC4.0 103/ulNormal4.0-11.0The [facility] on above: Performed By: #### CBC #### [facility] [address] [place], [place] [address]roselyn FonsecaenFREE T3on 54-50-9501CEIR T32.77 pg/mlLNormal2.77-5.27The [facility] HospitalComascension macomb on above:Performed By: #### FT3, TSH #### [facility] [address] [place] [address] RaymundoFREE T4on 96-07-1174Vtvc T4 [Mass/Vol]1.13 ng/dLNormal0.78-2.19The [facility] on above:Performed By: #### VITB12, IRON, FT4 #### [facility] [address] [place] [address] Awa FonsecaenIRONon 74-31-6000Ukvw [Mass/Vol]101.0 ug/kXQdxoxm76.0-170.0The [facility] on above:Performed By: #### VITB12, IRON, FT4 #### [facility] [address] [place], [place] [address]roselyn FonsecaenTSHon 53-90-8964OSG7.202 uIU/mLNormal0.470-4.680The [facility] on above:Performed By: #### FT3, TSH #### [facility] [address] [place] [address] RaymundoCranston General HospitalH RANGESEE BELOWNormalThe [facility] HospitalComascension macomb on above:Result Comment: <0.34 UIU/ml HYPERTHYROID 0.34-5.60 UIU/ml EUTHYROID >5.60 UIU/ml HYPOTHYROIDPerformed By: #### FT3, TSH #### [facility] [address] [place] [address] ElvaVITAMIN B12on 41-74-1418Bsndaplfb (Vitamin B12) [Mass/Vol]324.0 pg/iPHctndt620.0-931.0The [facility] on above:Performed By: #### VITB12, IRON, FT4 #### [facility] [address] [place] [address] Awa Stevenson Vital Signs Date TimeVital SignValuePerforming TyjmkjqczLtahrlik35-30-3450 11:14-0400Body qygmpe207.7 cmShaley Bledsoe SENIOR CLINICIAN Work Phone: [phone] [place] [address]-27-2025 11:14-0400Body mass index (BMI) [Ratio]23.63 kg/n4NkektekkAnival Bledsoe SENIOR CLINICIAN Work Phone: [phone])[facility] [place] [address]-27-2025 11:14-0400Body temperature 97.59 [degF]Anival Bledsoe SENIOR CLINICIAN Work Phone: [phone])[facility] [place] [address]-27-2025 11:14-0400Body qwhxia54.49 kgSagordy Bledsoe SENIOR CLINICIAN Work Phone: [phone])[facility] [place] [address]-27-2025 11:14-0400Diastolic blood dcgkujhf28 mm[Hg]Anival Bledsoe SENIOR CLINICIAN Work Phone: [phone] [place] [address]-27-2025 11:14-0400Heart rate78 /min Anival Bledsoe SENIOR CLINICIAN Work Phone: [phone])[facility] [place] [address]-27-2025 11:14-9880SoB8% (BldA) [Mass fraction]97 %Anival Bledsoe SENIOR CLINICIAN Work Phone: [phone])[address] [place] [address]-27-2025 11:14-0400Systolic blood omucjdmg644 mm[Hg]Anival Bledsoe SENIOR CLINICIAN Work Phone: 1(995)[address] [place], [place] [address]-24-2025 15:02-0500Diastolic blood xzybmkja95 mm[Hg]Anival Bledsoe SENIOR CLINICIAN Work Phone: [phone])[facility] [place] [address]-24-2025 15:02-0500Heart rate68 /min Anival Bledsoe SENIOR CLINICIAN Work Phone: [phone] [place] [address]-24-2025 15:02-1402LbJ7% (BldA) [Mass fraction]99 %Anival Bledsoe SENIOR CLINICIAN Work Phone: 1(319)[address] [place] [address]-24-2025 15:02-0500Systolic blood sqdzrglo776 mm[Hg]Anival Bledsoe SENIOR CLINICIAN Work Phone: [phone])[facility] [place], [place] [address]Bxclozndgl49-96-0904 15:09-0500Body mass index (BMI) [Ratio]23.72 kg/i8UuaewntDemarco Fernandez CNM Work Phone: 1(155)[address] [place], [place] [address]-26-2024 15:09-0500Body xiscfw62.76 kgDemarco Fernandez CNM Work Phone: [phone])[facility] [place] [address]-13-2024 11:35-0500Body mass index (BMI) [Ratio]23.99 kg/c8Yzhwi Pump SENIOR CLINICIAN Work Phone: 1(435)[address] [place] [address]-13-2024 11:35-0500Body .58 kgAmber Pump SENIOR CLINICIAN Work Phone: 1(215)[address] [place] [address]-13-2024 11:35-0500Diastolic blood mm[Hg]Renee Pump SENIOR CLINICIAN Work Phone: 1(385)[address] [place] [address]-13-2024 11:35-0500Heart rate68 /min Renee Pump SENIOR CLINICIAN Work Phone: [phone])[address] [place] [address]-13-2024 11:35-0500Systolic blood uciubsaq677 mm[Hg]Renee Pump SENIOR CLINICIAN Work Phone: [phone])[address] [place] [address]-19-2024 13:13-0400Body ysumod751.7 cmAmber Pump SENIOR CLINICIAN Work Phone: [phone])[address] [place] [address]-19-2024 13:13-0400Body mass index (BMI) [Ratio]23.87 kg/w9Bubwa Pump SENIOR CLINICIAN Work Phone: [phone])[address] [place] [address]-19-2024 13:13-0400Body .22 kgAmber Pump SENIOR CLINICIAN Work Phone: [phone])[facility] [place] [address]-19-2024 13:13-0400Diastolic blood jjjbcjet94 mm[Hg]Renee Pump SENIOR CLINICIAN Work Phone: [phone] [place] [address]19-2024 13:13-0400Heart rate72 /min Renee Pump SENIOR CLINICIAN Work Phone: noGA Unroqhqlnp70-06-9854 13:13-0400Systolic blood nvlymejg680 mm[Hg]Renee Pump SENIOR CLINICIAN Work Phone: [facility] Encounters Encounter DateEncounter TypeCare ProviderFacilityStart: 06-12-2025 End: 07-67-2166Lvycqb Patricia Bledsoe SENIOR CLINICIAN [facility] Phone: [facility] MedicineStart: 06-12-2025 End: 76-72-8678Iehkly flowsCipriano Bledsoe SENIOR CLINICIAN Work Phone: [facility] MedicineStart: 06-12-2025 End: 64-65-2631Viclndb encounter statusSagordy Bledsoe SENIOR CLINICIAN Work Phone: noGA HealthcareStart: 06-12-2025 End: 62-84-2149Dtnuyypc preventive med est patient 18-39 yrsSagordy Bledsoe NP Work Phone: [facility] MedicineComment on above:Wellness examination (Primary Dx); Urinary frequencyStart: 06-12-2025 End: 28-06-4029hkmxprbmufALBPJBPQ J HOFFMANNot AvailableStart: 05-30-2025 End: 47-94-2300Rvkxeleod encounterLianna Carlisle MD Other Phone: [facility] MedicineStart: 03-13-2025 End: 26-93-9198Mtwjplprz Result EncounterGeneric External Data ProviderNOMS External Department UnsolicitedStart: 03-13-2025 End: 79-75-0179Sbeihbgmy Result EncounterGeneric External Data ProviderNOMS External Department UnsolicitedStart: 12-10-2024 End: 89-06-5793Ycegjd outpatient visit 15 minutesSagordy Bledsoe NP Work Phone: noms FNR FMComment on above:Subacute cough (Primary Dx); Generalized abdominal pain; Other fatigueStart: 12-10-2024 End: 00-14-7231fvcapobcaiUPQNDESB J HOFFMANNot AvailableStart: 12-10-2024 End: 48-12-2028Wbrady flowsheetShaley Bledsoe NP Work Phone: NOGK FNR FMStart: 12-10-2024 End: 62-79-6079Gpsouz flowsCipriano Bledsoe NP Work Phone: NOCY FNR FMStart: 09-11-2024 End: 82-21-9300Djcxhapqizwax examination normalDemarco Fernandez CN Work Phone: NOSP HealthcareStart: 09-11-2024 End: 56-18-7818Wnwvwshw preventive med est patient 18-39 yrsDemarco Fernandez CNM Work Phone: NONT FNR OBComment on above:Normal gynecologic examination; Screening for cervical cancerStart: 09-11-2024 End: 19-62-7869axzflgswtpCEQLKFK L FLORONot AvailableStart: 09-11-2024 End: 60-23-3855Shulwp flowsheetDemarco Fernandez CNM Work Phone: NOMS FNR OBStart: 09-11-2024 End: 27-65-3189Aitbhu flowsheetDemarco Fernandez CNM Work Phone: NOZQ FNR OBStart: 09-04-2024 End: 18-10-7468Myjggszmi Linn Carlisle MD Work Phone: NOMS FNR FMStart: 08-29-2024 End: 37-17-1693Lsuuwf flowsheetAmber Pump SENIOR CLINICIAN Work Phone: NOMS FNR FMStart: 08-29-2024 End: 45-33-1743Pylftk flowsheetAmber Pump SENIOR CLINICIAN Work Phone: NOMS FNR FMStart: 08-29-2024 End: 75-44-2592Whhqyq outpatient visit 15 minutesAmber Pump SENIOR CLINICIAN Work Phone: NOYP FNR FMComment on above:Anal itching (Primary Dx) Start: 08-29-2024 End: 36-69-9214sftbrutnfxVFRJD PUMPNot AvailableStart: 08-13-2024 End: 03-18-3912BavaloKcsafrt Sandra Fernandez CNM Work Phone: noms FNR OBComment on above:Other acneStart: 07-14-2024 End: 95-62-8509Acdtikmli Result EncounterGeneric External Data ProviderNOMS External Department UnsolicitedStart: 07-14-2024 End: 18-15-5159Yutklmraj Result EncounterGeneric External Data ProviderNOMS External Department UnsolicitedStart: 06-04-2024 End: 37-84-4536Ayrvjwp encounter statusAmber Pump SENIOR CLINICIAN Work Phone: [facility] Work Phone: Start: 06-04-2024 End: 19-31-7190Jpftzhuz preventive med est patient 18-39 yrsAmber Pump SENIOR CLINICIAN Work Phone: noms FNR FMComment on above:Wellness examination (Primary Dx); Gluten intoleranceStart: 09-16-2023 End: 75-24-7429iycmnpyyghBSWEZ R FAZIOFacility:BAYLStart: 64-82-1319iagyxdkxgfCD LIANNA Woodward WONDERLYFacility:F0Evhpr: 11-22-2020 End: 43-99-7463nzdskicieiTPXQNS MOOREFacility:H1 Procedures DateProcedureProcedure DetailPerforming ClinicianStart: 96-89-1686Uaiyu dip stick/tablet rgnt non-auto w/o micrscpSamanjc Bledsoe SENIOR CLINICIAN Work Phone: Start: 98-85-2099LDH CBC WITH AUTO DIFFGeneric External Data ProviderStart: 72-27-5113UUBBACWF IMAGING PAP AND HPV DNA REFLEX HPV 16,18Valeridriss Fernandez CN Work Phone: Start: 74-75-0006XSMNHQJGDO/SHIGELLA CULT, CAMPY EIA AN DSHIGA TOXIN W/RFL E.COLI 0157 CULTAmber Pump SENIOR CLINICIAN Work Phone: Start: 59-22-1505FCT CBC WITH AUTO DIFFGeneric External Data Provider Plan of Treatment DateCare ActivityDetailAuthorStart: 29-16-9570Yxfbvvzed for malignant neoplasm of cervixNOGA HealthcareStart: 05-13-2026 End: 32-69-8017Oflzjiw encounter jbwupcuwc70/28/2026 9:00 AM EDT Office Visit [facility] [address] [facility] [place] [phone] Anival Bledsoe NP [address] [place] [address] [facility] Roomtart: 16-89-2916Hhxkulcqc vaccinationNOGA HealthcareStart: 06-12-2025 End: 67-60-8381Hkqpzlf encounter qthzemrdb75/27/2025 11:30 AM EDT [facility] [address] [facility] [place] [phone] Anival Bledsoe NP [address] [place] [place] [address] [facility] HospitalComment on above:Arrived Start: 06-06-2025 End: 07-86-8946Srmflae encounter procedureNOGA FNR FMStart: 71-26-5408Xjljklobq vaccinationInfluenza Vaccine (#1)[facility] HealthcareComment on above:Postponed from 06/17/2024 (Supply/Drug Shortage)Start: 12-10-2024 End: 60-64-4514Mzkfziz encounter bnhfohocn02/24/2025 3:00 PM EST Office Visit [facility] [address] [facility] [place] [phone] Anival Bledsoe NP [address] [place] [address] [facility] FNR FMComment on above:ArrivedStart: 09-11-2024 End: 89-52-4339Xprlgvk encounter bjfbfippf87/26/2024 3:00 PM EST Office Visit [facility] OB [address] [place] [address] Demarco Fernandez, YUEM [address] [place], [place] [address] [facility] FNR OBStart: 08-29-2024 End: 73-98-5086Zwx and parasites with giardia antigenNOMS HealthcareComment on above:Expected: 08/29/2024 (Approximate), Expires: 08/29/2025Start: 08-29-2024 End: 10-10-0716Qmkje cultureStool culture Microbiology Routine Anal itching Expected: 08/29/2024 (Approximate), Expires: 08/29/2025[facility] Work Phone: Comment on above:Expected: 08/29/2024 (Approximate), Expires: 08/29/2025Start: 25-28-0462Nipwfsiat vaccinationInfluenza Vaccine (#1) [facility] HealthcareStart: 06-04-2024 End: 91-15-1981IYQ W Auto Differential panel - BloodCBC and differential Lab Routine Wellness examination Expected: 06/04/2024 (Approximate), Expires: 0 06/04/2025[facility] Work Phone: Comment on above:Expected: 06/04/2024 (Approximate), Expires: 06/04/2025Start: 06-04-2024 End: 81-46-2707Txbvfgtkekswi metabolic 2000 panel - Serum or PlasmaComprehensive metabolic panel Lab Routine Wellness examination Expected: 06/04/2024 (Approximate), Expires: 06/04/2025N[facility] HealthcareComment on above:Expected: 06/04/2024 (Approximate), Expires: 06/04/2025Start: 06-04-2024 End: 74-36-6136Sbjgp 1996 panel - Serum or PlasmaLipid panel Lab Routine Wellness examination Expected: 06/04/2024 (Approximate), Expires: 06/04/2025[facility] HealthcareComment on above:Expected: 06/04/2024 (Approximate), Expires: 06/04/2025Start: 06-04-2024 End: 65-98-4056Zkfcob transglutaminase, IgATissue transglutaminase, IgA Lab Routine Gluten intolerance Expected: 06/04/2024 (Approximate), Expires: 06/04/2025[facility] HealthcareComment on above:Expected: 06/04/2024 (Approximate), Expires: 06/04/2025Start: 30-00-2263Sytojvsyv for malignant neoplasm of cervix Pap SmearMissouri Baptist Hospital-SullivanSALMONELLA/SHIGELLA CULT, CAMPY EIA AN DSHIGA TOXIN W/RFL E.COLI 0157 CULTSALMONELLA/SHIGELLA CULT, CAMPY EIA AN DSHIGA TOXIN W/RFL E.COLI 0157 CULT Lab Routine 08/29/2024 12:34 PM [facility] Immunizations Immunization DateImmunizationNotesCare XrekprvqJyedqsqr21-77-0755ecmsfgkxw, injectable, quadrivalent, contains preservativeAmber Pump SENIOR CLINICIAN Work Phone: [phone] [place], [place] [address]Eswdyqppxv78-92-8974gknngtflv virus vaccine, unspecified formulationAmber Pump SENIOR CLINICIAN Work Phone: [phone] StreetWhqmxjrqrc64-38-3311ahtlrffnm, injectable, quadrivalent, preservative freeAmber Pump SENIOR CLINICIAN Work Phone: [phone] [place], [place] [address]Ckjogczvde96-87-8225Bnghsyvjt, injectable, Madin Morrow Canine Kidney, preservative free, quadrivalentAmber Pump SENIOR CLINICIAN Work Phone: [phone] [place], [place] [address]Iezkrbvmmk91-91-0098jhfjnmjoh, injectable, quadrivalent, preservative freeAmber Pump SENIOR CLINICIAN Work Phone: [phone] [place], [place] [address]Bcgvsdzzqi71-55-5021yflkvofbn, injectable, quadrivalent, preservative freeAmber Pump SENIOR CLINICIAN Work Phone: [phone] [address] StreetAuprsjhzlt95-26-5976hjmystp toxoid, reduced diphtheria toxoid, and acellular pertussis vaccine, adsorbedAmber Pump SENIOR CLINICIAN Work Phone: [phone] [place], [place] [address]Uzhskpizux61-04-4700guqarzjnk, seasonal, injectableAmber Pump SENIOR CLINICIAN Work Phone: [phone] [place], [place] [address]Eymczwjblr21-44-8651betuepnyk, injectable, quadrivalent, preservative freeAmber Pump SENIOR CLINICIAN Work Phone: [phone] [place], [place] [address]Pzenjwafgc77-16-7154euaxksmid, seasonal, injectableAmber Pump SENIOR CLINICIAN Work Phone: [phone] [place], [place] [address]Eejguzkrfi83-55-7160bqretpeli, injectable, quadrivalent, preservative freeAmber Pump SENIOR CLINICIAN Work Phone: [phone] [place], [place] [address]Dskqwpsgjb67-89-0315qoeioajum, injectable, quadrivalent, contains preservativeAmber Pump SENIOR CLINICIAN Work Phone: [phone] [place], [place] [address]Taoelnryya81-95-7126nuevcpxxn B vaccine, adult dosageAmber Pump SENIOR CLINICIAN Work Phone: [phone] [place], [place] [address]Iycsczdern50-53-6413vmykpzoyk B vaccine, adult dosageAmber Pump SENIOR CLINICIAN Work Phone: [phone] [place], [place] [address]Bkwsfcyabc74-99-6923tbpbznvwm B vaccine, adult dosageAmber Pump SENIOR CLINICIAN Work Phone: [phone] [place], [place] [address]Fwxpiqione35-28-2042fxjhkdj, mumps and rubella virus vaccineAmber Pump SENIOR CLINICIAN Work Phone: [phone] [place], [place] 9913506-18-1998TD(adult) unspecified formulationAmber Pump SENIOR CLINICIAN Work Phone: [phone] [place], [place] [address]Qtnnidnpoq04-52-5246pzpfkanjsj, tetanus toxoids and pertussis vaccineAmber Pump SENIOR CLINICIAN Work Phone: [phone] [place], [place] [address]Agwmsucbix34-06-5955fazxnziem poliovirus vaccine, live, oralAmber Pump SENIOR CLINICIAN Work Phone: [phone] [place], [place] [address]Geqrovdrcs35-79-8322hxnlpafcxc, tetanus toxoids and pertussis vaccineAmber Pump SENIOR CLINICIAN Work Phone: [phone] [place], [place] [address]Zlrzmrqcbl63-72-4113tttfyjy, mumps and rubella virus vaccineAmber Pump SENIOR CLINICIAN Work Phone: [phone] [place], [place] [address]Rdmuhbmtvm40-09-9471ijioqtvag poliovirus vaccine, live, oralAmber Pump SENIOR CLINICIAN Work Phone: [phone] [place], [place] [address]Zrszfgiuha68-03-1268hildpbpuhq, tetanus toxoids and pertussis vaccineAmber Pump SENIOR CLINICIAN Work Phone: [phone] [place], [place] [address]Tdzrsbetdf63-47-5557zztsfwoeqb, tetanus toxoids and pertussis vaccineAmber Pump SENIOR CLINICIAN Work Phone: [facility] RehabNhpwsuyemn72-89-8378vpnehfvlq poliovirus vaccine, live, oralAmber Pump SENIOR CLINICIAN Work Phone: noSSM RehabHzrdwawrgs95-00-9211kqdtmtawnb, tetanus toxoids and pertussis vaccineAmber Pump SENIOR CLINICIAN Work Phone: noSSM RehabItvqffhbjj64-00-2641hltemrpps poliovirus vaccine, live, oralAmber Pump SENIOR CLINICIAN Work Phone: [facility] Payers DatePayer CategoryPayerPolicy [id number] Health InsuranceFAYETTE COUNTY MEMORIAL HOSPITALCAL MUTUAL [id number] [employer] [id number] 2022- [address] [place] [id number] [id number] 2..[id number] 2..1.431387.3.57[id number] 2..[id number] 2..1.674800.3.57[id number] 2.16.840.1.[id number] 2.16.840.1.054694.3.579.2.887295-55-2900Dezb-[id number] Social History DateTypeDetailFacilityStart: 97-79-0602Xsxhtei smoking status NHISNever smoked tobaccoNOMS HealthcareStart: 68-68-5039Nwxcmkz use and exposureSmokeless tobacco non-userNOMS HealthcareStart: 06-04-2024 End: 35-31-7024Vjwslvxbv beverage intakeCurrent drinker of alcohol (finding)[facility] HealthcareStart: 05-30-2023 End: 81-14-5377Yblzrvk of Social functionNOMS HealthcareStart: 05-30-2023 End: 77-52-0884Ovxlxvgiaer, Afraid, Rape, and Kick questionnaire [HARK][facility] HealthcareWithin the last year, have you been afraid of your partner or ex-partner?NoNOMS HealthcareDo you belong to any clubs or organizations such as yarsani groups, unions, fraternal or athletic groups, or school groups?YesNOMS HealthcareAttends Club or Organization MeetingsNot on fileNOMS HealthcareAre you now , , , , never or living with a partner?MarriedNOMS HealthcareHow often to you have a drink containing alcohol? Monthly or lessNOMS HealthcareHow many standard drinks containing alcohol do you have on a typical day?3 or 4NOMS HealthcareHow often do you have 6 or more drinks on 1 occasion?NeverNOMS HealthcareDo you feel stress - tense, restless, nervous, or anxious, or unable to sleep at night because yourmind is troubled all the time - these days [OSQ]To some extentNOMS Healthcare(I/We) worried whether (my/our) food would run out before (I/we) got money to buy more.Never trueNOMS HealthcareStart: 01-40-2667Ktiepcn CommentSociallly, Caffeine intake: 1-2 cups per day coffeeNOMS HealthcareStart: 22-15-0706Jbd assigned at FemaleMissouri Baptist Hospital-SullivanStart: 36-94-1038Xayswe identityIdentifies as female gender (finding)[facility]ullivanStart: 43-32-4434Kebfmd orientationHeterosexual (finding)[facility] Functional Status WwfvHfabhrloltUxzfirIalxwvgs15-54-4372Listqdz Health Questionnaire 2 item (PHQ- 2) [Reported][facility] Clinical Notes 06-04-2024 to 06-12-2025 Note Date & GvauZywmJurioelc57-42-4610 History of Present illness Narrative* Anival Bledsoe, SENIOR CLINICIAN - 06/12/2025 11:30 AM EDT Images from the original note were not included. Krystina Bledsoe is a 39 y.o. female presents with chief complaint of Annual Exam HPI: HPI History of Present Illness Krystina is here for a wellness exam. Krystina feels well overall. She feels like she is needing to go tothe bathroom more often only in the evenings before she goes to bed. She thinks it may be more ritual. She reports the amounts vary sometimes but it doesn't typically wake her up. States that it is not an issue during the day. She is seeing a specialist for hormone replacement. She sees [facility] for teresa al women's screening and does self breast exams. [...] 30 min Stress: Stress Concern Present (05/30/2023) [place] [employer] - Occupational Stress Questionnaire Feeling of Stress : To some extent Social Connections: Socially Integrated (05/30/2023) Social Connection and Isolation Panel [NHANES] Frequency of Communication with Friends and Family: Twice a week Frequency of Social Gatherings with Friends and Family: Once a week Attends Anabaptism Services: 1 to 4 times per year [...] (around 06/12/2026) for wellness. documented in this encounterMissouri Baptist Hospital-SullivanCliwbjpauj94-07-4705 Telephone encounter Note* Telephone Encounter - Tiburciochico Myers - 05/30/2025 10:52 AM EDT Krystina called back to reschedule appt w Renee - her son Vik Bledsoe) needed his wellchild and she needs phy for work . She was hoping to get it done before Jun 17. I said I would pass message along to see if they can be put in somewhere before that date. Also has to be closest to the evening if possible Krystina [phone] [facility]-SullivanNpusybjxkw44-71-2835 Miscellaneous Notes* Telephone Encounter - Tiburciochico Myers - 05/30/2025 10:52 AM EDT Krystina called back to reschedule appt w Renee - her son Vik Bledsoe) needed his wellchild and she needs phy for work . She was hoping to get it done before Jun 17. I said I would pass message along to see if they can be put in somewhere before that date. Also has to be closest to the evening if possible Krystina [phone] documented in this encounterMissouri Baptist Hospital-SullivanKiktrfoolt92-67-8190 History of Present illness Narrative* Anival Bledsoe NP - 12/10/2024 3:00 PM EST Images from the original note were not included. Krystina Bledsoe is a 39 y.o. female presents with chief complaint of Cough (Pt has had symptoms fora week. Pt states overall she is feeling [...] it wearing off around 10 hours. Denies feverbut admits body chills and fatigued. Feeling more [...] 10/2012 Dr Bhupinder SALPINGECTOMY Bilateral 09/16/2023 Dr. 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 Follow up ifnot improving. -Will send in tessalon perlanahi for cough suppressant. -May continue OTC medications that she is currently taking. -Follow up if not improving. Follow up if symptoms worsen or fail to improve. documented in this encounterMissouri Baptist Hospital-SullivanOocipugdwd95-53-2856 History of Present illness Narrative* Demarco Fernandez CNM - 09/11/2024 3:00 PM EST YEARLY HPI: This is a established patient. 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 Please call [phone]. Thank you. documented in this [facility]11-19-2024 Telephone encounter Note* Telephone Encounter - Gabriella Carlisle - 09/04/2024 2:42 PM EST Patient left a voicemail wanting test results from last week. Please call [phone]. Thank you. [facility] Lkbcvssnlh97-75-0603 History of Present illness Narrative* Renee Ramos NP - 08/29/2024 11:30 AM EST Images from the original note were not included. Krystina Bledsoe is a 38 y.o. female presents with chief complaint of Anal Itching (Noticed 3 nightsago, starts at night when she sits down [...] episodes. She is on testosterone cream as welland on Tuesday she placed cream on her [...] SECTION, LOW TRANSVERSE x2 (2010,2013) COLONOSCOPY 09/2017 WNSandra, Dr Nesbitt DILATION AND CURETTAGE OF UTERUS [...] 30 min Stress: Stress Concern Present (05/30/2023) [place] [employer] - Occupational Stress Questionnaire Feeling of Stress : To some extent Social Connections: Socially Integrated (05/30/2023) Social Connection and Isolation Panel [NHANES] Frequency of Communication with Friends and Family: Twice a week Frequency of Social Gatherings with Friends and Family: Once a week Attends Anabaptism Services: 1 to 4 times per year [...] ear discharge, ear pain, postnasal drip, rhinorrhea, sinuspressure, sinus pain, sneezing, sore throat and trouble [...] with giardia antigen; Future documented in this encounterMissouri Baptist Hospital-SullivanMhzrlijctv49-03-5760 History of Present illness Narrative* Renee Ramos NP - 06/04/2024 1:30 PM EDT Images from the original note were not [...] and she is on progesterone. She is havingregular cycles now and no hair loss. SUBJECTIVE: [...] 30 min Stress: Stress Concern Present (05/30/2023) [place] [employer] - Occupational Stress Questionnaire Feeling of Stress : To some extent Social Connections: Socially Integrated (05/30/2023) Social Connection and Isolation Panel [NHANES] Frequency of Communication with Friends and Family: Twice a week Frequency of Social Gatherings with Friends and Family: Once a week Attends Anabaptism Services: 1 to 4 times per year [...] ear discharge, ear pain, postnasal drip, rhinorrhea, sinuspressure, sinus pain, sneezing, sore throat and trouble [...] year, labs this June. [facility]VAL[facility] HealthcareEvaluation [facility]* Diagnosis Other acne documented in this encounter [facility] HealthcareEvaluation note* Diagnosis Anal itching- Primary Pruritus ani documented in this encounter [facility] HealthcareEvaluation note* Diagnosis Wellness examination- Primary Gluten intolerance Celiac disease documented in this encounter [facility] HealthcareEvaluation note* Diagnosis Normal gynecologic examination Screening [...] section and content) DATE CREATED AUTHOR 02/11/2021 [facility] DATE CREATED AUTHOR AUTHOR'S ORGANIZ ATION 09/23/2023 [facility] DATE CREATED AUTHOR AUTHOR'S ORGANIZ ATION 06/14/2025 [facility] EPIC Care Teams (unrecognized sec tion and content) Team MemberRelationshipSpecialtyStart DateEnd Date Lianna Carlisle MD [address] [facility] [place] [address] PCP - [facility] Medicine02/22/23 Lianna Carlisle MD [address] [facility] [place] [address] PCP - [facility] [place] [employer]06/17/1912Team MemberRelationshipSpecialty Start DateEnd Date Lianna Carlisle MD [address] [facility] [place] [address] PCP - [facility] Medicine02/22/23 Lianna Carlisle MD [address] [facility] [place] [address] PCP - [facility] [place] [employer]06/17/1912Team MemberRelationshipSpecialty Start DateEnd Date Lianna Carlisle MD [address] [facility] [place] [address] PCP - [facility] Medicine02/22/23 Lianna Carlisle MD [address] [facility] [place] [address] PCP - Medical [place] [employer]06/17/1912Te MemberRelationshipSpecialty Start DateEnd Date Lianna Carlisle MD [address] [place] [address] PCP - Generalmily Medicine02/22/23 Lianna Carlisle MD [address] [place] [address] PCP - [facility] [place] [employer]06/17/1912Team MemberRelationshipSpecialty Start DateEnd Date Lianna Carlisle MD [address] [place] [address] PCP - [facility] Medicine02/22/23 Lianna Carlisle MD [address] [place] [address] PCP - [facility] [place] [employer]06/17/1912Te MemberRelationshipSpecialty Start DateEnd Date Lianna Carlisle MD [address] [place] [address] PCP - [facility] Medicine02/22/23 Lianna Carlisle MD [address] [place] [address] PCP - [facility] [place] [employer]06/17/1912Te MemberRelationshipSpecialty Start DateEnd Date Lianna Carlisle MD [address] [place] [address] PCP - Generalmi Medicine02/22/23 Lianna Carlisle MD [address] [facility] [place] [address] PCP - [facility] [place] [employer]06/17/1912Te MemberRelationshipSpecialty Start DateEnd Date Lianna Carlisle MD [address] [place] [address] PCP - GeneralFamily Medicine02/22/23 Lianna Carlisle MD [address] [place] [address] PCP - Medical [place] [employer]06/17/1912Te MemberRelationshipSpecialty Start DateEnd Date Lianna Carlisle MD [address] [facility] [place] [address] [facility] - [facility] Lianna Carlisle MD [address] [facility] [place] [address] PCP - Medical [place] [employer]06/17/1912Te MemberRelationshipSpecialty Start DateEnd Date iLanna Carlisle MD PCP - GeneralFamily Medicine02/22/23Te MemberRelationshipSpecialtyStart DateEnd Date Lianna Carlisle MD PCP - Generalmily Medicine02/22/23 Anival Bledsoe SENIOR CLINICIAN [address] [facility] [place] [address] PCP - Medical [place] [employer]06/17/1912Te MemberRelationshipSpecialty Start DateEnd Date Lianna Carlisle MD PCP - GeneralFamily Medicine02/22/23 Anival Bledsoe NP [address] [place] [address] PCP - Medical [place] [employer]06/17/1912 Reason for Visit (unrecogniz ed section and content) ReasonOnset DateCommentsMed [id number] ItchingNoticed 3 nights ago, starts at night when she sits down to relax for the night. 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 Tried cortisone the past 2 nights and helped a little. Has a weird sensation in abdomen. Last week had looser stool but back to normalReasonCommentsAnnual ExamPt is going to get her labs done tomorrow morning. Pt is interested in being tested for celiac disease. Pt doesn't eat much gluten but if she does she gets abdominal pain and cramping.ReasonComments Gynecologic ExamReasonCommentsCoughPt has had symptoms for a week. Pt states overall she is feeling better. Pt was very tired. Pt's cough is worsening. Pt stes she feels like her chest is full and she is spitting up yellow sputum. Pt h as had sinus congestion. Pt states chest is starting to hurt and she has a sore throat. Pt's was sick too and was in last week and tested negative. Pt had abdominal pain over the weekend. Pt had loose stool. Pt states this is improving.ReasonCommentsAnnual Exam FOR RECORDS PERTAINING TO PATIENTS WHO [...] BE BASED ON THE PRIMARY CLINICAL RECORDS. [email or web address] provides no warranty or guarantee of the accuracy or completeness of information in this document.
--- OUTSIDE RECORDS SUMMARY | 2025-08-17 08:55 | XMS_ITS | Clinical Summary ---
Author Organization [employer] tem Address [id number] [address] [place] [address] Care Team Providers Care South Asian History Professor Name Role Phone Lianna Calero MD Primary Care Provider Erin wallace Social History Tobacco UseTypesPacks/DayYears UsedDateSmoking Tobacco: Never AssessedChildcare AnswerDate VvodbygxYlsdxiyyuWbjbcuh58/12/2019EmploymentAnswerDate Recorded AwhiinrlsdCzgtjfk55/12/2019Purpose - LifeAnswerDate RecordedPurpose and direction in qcbzMizocnj74/11/2021CommentsUnknownSex and Gender InformationValueDate RecordedSex Assigned at BirthNot on fileLegal SexFemale 05/22/2015 11:28 AM EDTGender IdentityNot on fileSexual OrientationNot on file Plan of Treatment Not on file Medical Devices Not on file Insurance Care Teams Team MemberRelationshipSpecialtyStart DateEnd Date Lianna Calero MD PCP - [facility]06/30/17
[2025-08-17 09:29] LABS: Alanine Aminotransferase 24 U/L (14-59); Albumin Globulin Ratio 1.7; Albumin Level 4.3 g/dL (3.4-5.0); Alkaline Phosphatase 63 U/L (46-116); Anion Gap 10.9; Aspartate Amino Transferase 18 U/L (15-37); Blood Urea Nitrogen 23.0 mg/dL (7.0-18.0); Calcium 9.1 mg/dL (8.5-10.1); Carbon Dioxide 28.5 mmol/L (21.0-32.0); Chloride 106 mmol/L (98-107); Cholesterol 181 mg/dL (<=200); Estimated GFR (African America >60 (>=60 mL/min/1.73m^2); Estimated GFR (Non-African Ame 50 (>=60 mL/min/1.73m^2); Globulin 2.6 g/dL; Glucose 84 mg/dL (74-106); HDL Cholesterol 64 mg/dL (40-60); Potassium 4.4 mmol/L (3.5-5.1); Sodium 141 mmol/L (136-145); Total Protein 6.9 g/dL (6.4-8.2); Triglycerides 46 mg/dL (<=150); VLDL CHOLESTEROL 9.2 mg/dL
== END 2025-08-17 08:52 | disposition home or self-care (01) ==
LOC: LAB 08:52
PROVIDERS: PCP Nurse Practitioner Family; Visit Provider Nurse Practitioner Family
DX: Z00.00 Encounter for general adult medical examination without abnormal findings (principal); Z13.6 Encounter for screening for cardiovascular disorders; I10 Essential (primary) hypertension
CPT/HCPCS: 36415; 80053; 80061